=== PATIENT | female | born 1935 | race Caucasian/White ===

== ENCOUNTER 2020-08-03 08:02 | Emergency (ER) | payer MEDICARE, SELFPAY ==
--- NOTE | ~2020-08-03 | CT_ITS ---
EXAMINATION: CT brain wo con DATE: 08/03/2020 09:25 INDICATION: Dizziness. Lightheadedness. TECHNIQUE: Computed tomography (CT) of the head was performed without intravenous contrast. The mA wa s adjusted according to patient size. Iterative reconstruction technique was employed. The dose-lengt h product was 529.67 mGy-cm. COMPARISON: None FINDINGS: There are scattered areas of low attenuation in the cerebral white matter. There is no intr acranial hemorrhage, acute infarction, or abnormal intracranial mass lesion. The ventricles are teri l in size. There are likely changes of ocular lens replacement surgeries. The paranasal sinuses are c lear. The mastoid air cells are normal. IMPRESSION: 1. Moderate nonspecific cerebral white matter disease, which likely represents chronic small vessel i schemic disease. Reviewed, dictated and finalized at location B. IMPRESSION: 1. Moderate nonspecific cerebral white matter disease, which likely represents chronic small vessel ischemic disease.
[2020-08-03 08:10] VITALS: BP 189/99; PULSE 91; RESP 16; TEMP 36.5; O2SAT 96
--- NOTE | 2020-08-03 08:18 | ED.DIZZY ---
HPI - Dizziness General Chief Complaint: Dizziness Stated Complaint: High Blood pressure/Dizzy Time Seen by Provider: 08/03/20 08:18 Source: patient Mode of arrival: ambulatory Limitations: no limitations History of Present Illness HPI Narrative: This nice young lady comes in a feeling that her balance is not right. She says she has felt her balance has been off, and she has been dizzy. She denies any vertigo, as I ask that question different ways. She complains she has had a lot of anxiety regarding her 's diagnosis of cancer, and has felt she has a lot to do with seeing after him. Anxiety has been relatively severe and ongoing. This has been aggravated by her having difficulty with her 's ostomy care. Duration is ongoing for the past few weeks, not made better by measures taken at home. She feels this anxiety is caused by the 's diagnosis of cancer. No modifying factors. She denies vertigo, she denies nausea. MD elicited complaint: lightheadedness Pertinent past history: other (vertigo) Onset (ago): day(s) Timing: gradual onset Severity: moderate Description: off-balance Context: anxiety Exacerbating factors: movement/ambulation and change in body position Relieving factors: nothing and remaining still Associated symptoms: denies other symptoms Associated neuro symptoms: gait ataxia (chronic ataxia) Stroke scale total: 0 Related Data Home Medications Medication Instructions Recorded Confirmed metoprolol tartrate 25 mg PO DAILY 08/03/20 08/03/20 Allergies Allergy/AdvReac Type Severity Reaction Status Date / Time No Known Allergies Allergy Verified 08/03/20 09:08 Review of Systems Constitutional: Constitutional: Reports no additional constitutional complaints Eyes: Eyes: Reports no additional eye complaints ENT: Reports system reviewed and no additional complaints, except as documented Cardiovascular: Cardiovascular: Reports no additional cardiovascular complaints Respiratory: Respiratory: Reports no additional respiratory complaints Gastrointestinal: Gastrointestinal: Reports no additional gastrointestinal complaints Genitourinary: Genitourinary: Reports no additional female genitourinary complaints Musculoskeletal: Musculoskeletal: Reports no additional musculoskeletal complaints Integumentary/Breasts: Skin/Breast: Reports system reviewed and no additional complaints, except as docu Neurologic: Reports system reviewed and no additional complaints, except as documented Psychiatric: Psychiatric: Reports no additional psychiatric complaints Endocrine: Endocrine: Reports no additional endocrine complaints Hematologic/Lymphatic: Hematologic/Lymphatic: Reports no additional hematologic/lymphatic complaints Allergic/Immunologic: Allergic/Immunologic: Reports no additional allergic/immunologic complaints [facility] Past Medical History Medical History (Updated 08/03/20 @ 21:13 by Adriel Morales MD) Hypertension Osteoarthritis Surgical History Surgical History (Updated 08/03/20 @ 21:16 by Adriel Morales MD) History of cholecystectomy History of hip replacement Family History Family History (Updated 08/03/20 @ 21:16 by Adriel Morales MD) Other No significant family history Social History Social History (Updated 08/03/20 @ 22:30 by Adriel Morales MD) Smoking status: Never smoker Living arrangements: with family Sexual Orientation (if Verbalized by the Patient): Straight or Heterosexual Exam Const: General: no acute distress Orientation/consciousness: patient oriented x3 HENMT: Head: normal to inspection Ears: TM's normal bilaterally and external ear abnormal General nose exam: Normal external nose present Mouth: Yes Normal oral and palatal mucosa present Throat: posterior oropharynx normal Eyes: Conjunctivae: conjunctivae normal Neck: Neck: normal visual inspection Chest: Chest palpation & inspection: normal inspection of the chest Resp: Effor
--- NOTE | 2020-08-03 08:35 | ECG_ITS ---
Measurements Intervals [place] Rate: 76 P: 84 NE: 168 QRS: 85 QRSD: 88 T: 81 QT: 405 QTc: 455 Interpretive Statements SINUS RHYTHM POSSIBLE RIGHT ATRIAL ENLARGEMENT VOLTAGE CRITERIA FOR LVH BASELINE ARTIFACT- I BORDERLINE ECG Electronically Signed On 08-03-2020 8:59:29 CDT by Rupesh Goldberg D.O.
[2020-08-03 08:42] LABS: Add Urine Microscopic? YES; Appearance Urine Clear (Clear); Bilirubin Urine Negative (Negative); Blood Urine Negative (Negative); Color Urine Yellow (Yellow); Glucose Urine UA Negative (Negative); Ketones Urine Trace (Negative); Leukocyte Esterase Ur Negative LEU/UL (Negative); Nitrate Urine Negative (Negative); Protein Urine Negative (Negative); Specific Grav Ur 1.015 (1.010-1.020); Urobilinogen Urine 0.2 mg/dL (0.2-1.0); pH Urine 6.5 (5.0-8.0)
[2020-08-03 08:46] LABS: RBC Urine None seen /hpf (0-2); Squamous Epithelial Cell Urine Few /hpf (Few); WBC Urine None seen /hpf (0-3)
[2020-08-03 08:47] LABS: Bacteria Urine Trace /hpf
[2020-08-03 08:58] LABS: Basophils Absolute Auto 0.03 K/mm3 (0.00-0.10); Basophils Percent Auto 0.4 % (0.0-1.0); Eosinophils Absolute Auto 0.03 K/mm3 (0.02-0.50); Eosinophils Percent Auto 0.4 % (1.0-6.0); Hematocrit 41.9 % (35.0-42.0); Hemoglobin 13.3 g/dL (11.7-13.8); Immature Granulocyte Absolute 0.03 K/mm3 (0.00-0.00); Immature Granulocyte Percent A 0.4 % (0.0-0.0); Lymphocytes Absolute Auto 1.63 K/mm3 (1.10-4.50); Lymphocytes Percent Auto 19.9 % (18.0-42.0); Mean Corpuscular HGB Conc 31.7 g/dL (32.0-36.0); Mean Corpuscular Hemoglobin 27.8 pg (27.0-31.0); Mean Corpuscular Volume 87.7 fL (78.0-102.0); Monocytes Absolute Auto 0.44 K/mm3 (0.10-0.90); Monocytes Percent Auto 5.4 % (2.0-11.0); Neutrophils Absolute Auto 6.1 K/mm3 (1.7-7.2); Neutrophils Percent Auto 73.5 % (50.0-70.0); Platelet Count Result 462 K/mm3 (150-420); Red Blood Count 4.78 M/mm3 (4.20-5.40); Red Cell Distribution Width 14.3 % (11.6-14.4); White Blood Count 8.2 K/mm3 (4.8-10.8)
[2020-08-03 09:19] LABS: Alanine Aminotransferase 17 U/L (14-59); Albumin Level 2.9 g/dL (3.4-5.0); Alkaline Phosphatase 65 U/L (46-116); Anion Gap 8 mmol/L (8-16); Aspartate Amino Transferase 19 U/L (15-37); Bilirubin,Total 0.3 mg/dL (0.00-1.00); Blood Urea Nitrogen 12 mg/dL (7-18); Calcium 8.9 mg/dL (8.5-10.1); Carbon Dioxide 29 mmol/L (21-32); Chloride 103 mmol/L (98-108); Estimated Glomerular Filt Rate > 60; Glucose 132 mg/dL (70-99); Magnesium 1.9 mg/dL (1.8-2.4); Osmolality Calculated 291 mOsm/kg (285-295); Potassium 3.7 mmol/L (3.5-5.1); Sodium 140 mmol/L (136-145); Total Protein 7.3 g/dL (6.4-8.2)
[2020-08-03 09:20] LABS: Troponin I 11.9 ng/L (0.00-60.4)
[2020-08-03 09:42] VITALS: BP 168/96; PULSE 79; O2SAT 99
--- NOTE | 2020-08-03 09:43 | PC.NURSE ---
FELICE FROM [employer] HERE TO SPEAK WITH PATIENT AND FAMILY
[2020-08-03 10:10] VITALS: BP 162/89
== END 2020-08-03 10:10 | disposition home or self-care (01) ==
PROVIDERS: Emergency Provider Emergency Medicine; PCP Internal Medicine
DX: F41.9 Anxiety disorder, unspecified (principal); F32.9 Major depressive disorder, single episode, unspecified
CPT/HCPCS: 36415; 70450; 80053; 81001; 83735; 84484; 85025; 93005; 99283; 99284

== ENCOUNTER 2022-12-28 13:45 | Outpatient (CLI) | payer MEDICARE, SELFPAY ==
[2022-12-28 14:05] LABS: Basophils Absolute Auto 0.05 K/mm3 (0.00-0.10); Basophils Percent Auto 0.4 % (0.0-1.0); Eosinophils Absolute Auto 0.15 K/mm3 (0.02-0.50); Eosinophils Percent Auto 1.3 % (1.0-6.0); Hemoglobin 12.6 g/dL (11.7-13.8); Immature Granulocyte Absolute 0.04 K/mm3 (0.00-0.00); Immature Granulocyte Percent A 0.3 % (0.0-0.0); Lymphocytes Absolute Auto 2.45 K/mm3 (1.10-4.50); Lymphocytes Percent Auto 21.4 % (18.0-42.0); Mean Corpuscular HGB Conc 31.5 g/dL (32.0-36.0); Mean Corpuscular Hemoglobin 29.1 pg (27.0-31.0); Mean Corpuscular Volume 92.4 fL (78.0-102.0); Mean Platelet Volume 9.1 fl (9.2-11.8); Monocytes Absolute Auto 0.92 K/mm3 (0.10-0.90); Neutrophils Absolute Auto 7.8 K/mm3 (1.7-7.2); Neutrophils Percent Auto 68.6 % (50.0-70.0); Platelet Count Result 507 K/mm3 (150-420); Red Blood Count 4.33 M/mm3 (4.20-5.40); Red Cell Distribution Width 14.6 % (11.6-14.4); White Blood Count 11.5 K/mm3 (4.8-10.8)
[2022-12-28 14:44] LABS: Anion Gap 10 mmol/L (8-16); Blood Urea Nitrogen 19 mg/dL (7-18); Calcium 9.4 mg/dL (8.5-10.1); Carbon Dioxide 27 mmol/L (21-32); Chloride 105 mmol/L (98-108); Estimated Glomerular Filt Rate > 60; Glucose 115 mg/dL (70-99); Osmolality Calculated 297 mOsm/kg (285-295); Potassium 5.2 mmol/L (3.5-5.1); Sodium 142 mmol/L (136-145)
== END 2022-12-28 13:46 | disposition home or self-care (01) ==
LOC: CHSLAB 13:48
PROVIDERS: PCP Internal Medicine; Visit Provider Hospitalist
DX: I10 Essential (primary) hypertension (principal)
CPT/HCPCS: 36415; 80048; 85025

== ENCOUNTER 2024-08-12 11:36 | Outpatient (CLI) | payer MEDICARE, SELFPAY ==
--- NOTE | ~2024-08-12 | XR_ITS ---
Right Knee Technique: AP, lateral, and sunrise views were obtained. Clinical History: Pain Findings: No fracture or dislocation is seen. Severe tricompartmental osteophytosis present. There is diffuse osteopenia. Soft tissues are unremarkable. No joint effusion is seen. Impression: Severe tricompartmental osteoarthritis. Diffuse generalized osteopenia. Reviewed, dictated and finalized at location . Impression: Severe tricompartmental osteoarthritis. Diffuse generalized osteopenia.
[2024-08-12 12:02] LABS: Hematocrit 43.1 % (35.0-42.0); Hemoglobin 13.1 g/dL (11.7-13.8); Mean Corpuscular HGB Conc 30.4 g/dL (32-36); Mean Corpuscular Hemoglobin 27.4 pg (27.0-31.0); Mean Corpuscular Volume 90.2 fL (78.0-102.0); Mean Platelet Volume 9.1 fl (9.2-11.8); Platelet Count Result 575 K/mm3 (150-420); Red Blood Count 4.78 M/mm3 (4.20-5.40); Red Cell Distribution Width 14.2 % (11.6-14.4); White Blood Count 11.2 K/mm3 (4.8-10.8)
[2024-08-12 12:37] LABS: Alanine Aminotransferase 13 U/L (6-35); Alkaline Phosphatase 81 U/L (38-126); Anion Gap 7 mmol/L (4-12); Aspartate Amino Transferase 27 U/L (14-36); Bilirubin,Total 0.4 mg/dL (0.2-1.3); Blood Urea Nitrogen 14 mg/dL (7-17); CRP 1.6 mg/dL (<1.0); Calcium 9.7 mg/dL (8.4-10.2); Carbon Dioxide 27 mmol/L (22-30); Chloride 104 mmol/L (98-107); Estimated Glomerular Filt Rate > 60; Glucose 106 mg/dL (65-110); Osmolality Calculated 286 mOsm/kg (285-295); Potassium 4.6 mmol/L (3.4-5.0); Sodium 138 mmol/L (137-145); Total Protein 7.8 g/dL (6.3-8.2); Uric Acid 3.7 mg/dL (2.5-7.5)
[2024-08-12 12:50] LABS: Free T3 5.58 pg/mL (2.18-3.98)
[2024-08-12 12:53] LABS: Free T4 Free Thyroxine 1.85 ng/dL (0.78-2.19)
[2024-08-12 13:15] LABS: Erythrocyte Sedimentation Rate 10 mm/hr (0-30)
[2024-08-14 13:23] LABS: Anti Cyclic Citrullinated Pept <16 UNITS
== END 2024-08-12 11:37 | disposition home or self-care (01) ==
LOC: CHSLAB 11:39
PROVIDERS: PCP Internal Medicine; Visit Provider Internal Medicine
DX: M25.561 Pain in right knee (principal); M06.9 Rheumatoid arthritis, unspecified; F41.9 Anxiety disorder, unspecified; M17.11 Unilateral primary osteoarthritis, right knee; M85.89 Other specified disorders of bone density and structure, multiple sites
CPT/HCPCS: 36415; 73562; 80053; 84439; 84443; 84481; 84550; 85027; 85652; 86140; 86200

== ENCOUNTER 2024-08-13 09:38 | Observation (INO) | payer MEDICARE, SELFPAY ==
--- NOTE | ~2024-08-13 | CT_ITS ---
EXAMINATION: CTA brain carotid DATE: 08/14/2024 11:24 CDT INDICATION: Facial drop. Just not feeling right. TECHNIQUE: Computed tomographic angiography (CTA) of the head was performed without and with 100 mL O mnipaque-350 intravenous contrast. CTA of the neck was performed with intravenous contrast. The dose- length product was 1102.31 mGy-cm. Maximum intensity projection and volume rendered 3D-reconstruction s were created by the technologist on a separate workstation. COMPARISON: CT brain dated 08/14/2024 and 08/03/2020. FINDINGS: HEAD CTA: No significant stenosis, occlusion or aneurysm. There is atherosclerotic changes in the cav ernous segments of the carotid arteries. There is a dominant left vertebral artery. NECK CTA: There is atherosclerosis of the aorta and great vessels. The origins of the vertebral arter ies are unremarkable. There is mild atherosclerotic changes of the proximal internal carotid arteries without significant luminal narrowing or dissection. The vertebral arteries are normal in course and caliber. There are small subcentimeter hypodensities of the thyroid gland, most likely benign. Lung apices are unremarkable. There is less than 20% stenosis of the proximal right internal carotid artery relative to normal dist al artery lumen diameter (NASCET criteria). There is less than 20% stenosis of the proximal left inte rnal carotid artery relative to normal distal artery lumen diameter. IMPRESSION: 1: No significant vascular abnormality of the head or neck. No significant stenosis, occlusion, diss ection or aneurysm. Reviewed, dictated and finalized at location A. IMPRESSION: 1: No significant vascular abnormality of the head or neck. No significant allyson nosis, occlusion, dissection or aneurysm.
--- NOTE | ~2024-08-13 | CT_ITS ---
EXAMINATION: CT brain wo con DATE: 08/14/2024 10:26 INDICATION: Right facial droop. TECHNIQUE: Computed tomography (CT) of the head was performed without intravenous contrast. Sagittal and coronal reconstructions were performed. The mA was adjusted according to patient size. Iterative reconstruction technique was employed. The dose-length product was 605.33 mGy-cm. COMPARISON: head CT dated 08/03/2020 FINDINGS: No acute intracranial hemorrhage, acute infarction or abnormal extra axial fluid collection. There is moderate scattered white matter hypoattenuation consistent with chronic small vessel ischemic diseas e. Symmetric prominence of the sulci consistent with mild age-appropriate diffuse cerebral volume los s. Ventricles are normal and symmetric. No mass/mass effect. Changes of bilateral intraocular lens re placement. The orbits, paranasal sinuses and mastoid air cells are normal. Intracranial calcified cer ebral atherosclerosis is noted. IMPRESSION: 1. No acute intracranial process. 2. Age-related changes including mild diffuse volume loss and moderate scattered white matter hypoatt enuation consistent with chronic small vessel ischemic disease. Reviewed, dictated and finalized at location A. IMPRESSION: 1. No acute intracranial process. 2. Age-related changes including mild diffuse volume loss and moderate scattere d white matter hypoattenuation consistent with chronic small vessel ischemic di sease.
--- NOTE | ~2024-08-13 | US_ITS ---
EXAMINATION:US venous doppler LE BI INDICATION:Status post fall. Knee pain and swelling. TECHNIQUE: Multiple grayscale, color flow and Doppler images of the right and left lower extremity de ep venous systems were obtained and reviewed. COMPARISON:No prior studies for comparison. FINDINGS: The common femoral, superficial femoral and popliteal veins demonstrate normal respiratory variation, augmentation and compressibility. Color flow is also seen within the posterior tibial, pe roneal, greater saphenous and profunda veins. IMPRESSION: 1: No lower extremity deep venous thrombosis. Reviewed, dictated and finalized at location A.
--- NOTE | ~2024-08-13 | XR_ITS ---
XR hip RT 2V w AP pelvis 08/13/2024 11:19 Indication: Hip pain after fall Procedure: AP pelvis and 2 views right hip Comparison: No prior studies for comparison. Findings: Pelvic rings intact. There is a left bipolar hemiarthroplasty. There is moderate osteoarthr itis of the right hip. Mild osteitis pubis. No acute fracture or traumatic malalignment. There is ath erosclerosis. Impression: 1: No acute fracture. Reviewed, dictated and finalized at location A. Impression: 1: No acute fracture.
--- NOTE | ~2024-08-13 | XR_ITS ---
XR knee RT 3V 08/13/2024 11:19 Indication: Right knee pain after fall Procedure: 3 views right knee Comparison: 08/12/2024 Findings: There is severe tricompartment osteoarthritis. There is moderate joint effusion. No acute f racture or traumatic malalignment. No soft tissue abnormality. No foreign bodies. Impression: 1: No acute bone or joint abnormality. 2: Severe tricompartment osteoarthritis. Reviewed, dictated and finalized at location A. Impression: 1: No acute bone or joint abnormality. 2: Severe tricompartment osteoarthritis.
[2024-08-13 09:39] VITALS: BP 197/96; PULSE 86; RESP 16; TEMP 36.7; O2SAT 96
--- NOTE | 2024-08-13 09:51 | ED_ITS ---
HPI - Fall General Chief Complaint: Fall Stated Complaint: fall; right hip pain Time Seen by Provider: 08/13/24 09:49 Source: patient Mode of arrival: ambulatory Limitations: no limitations History of Present Illness HPI Narrative: 89-year-old female with a history of hypertension, arthritis status post left hip replacement, recent right knee pain and swelling for which she has been scheduled to have a cortisone injection had a fall yesterday evening and presents to the ED with -- right hip pain. The patient is unable to bear weight. -- Ongoing right knee pain no head injury. No loss of consciousness. No neck or back pain. No bruising complaint: fall Onset (ago): day(s) ( 1 day ago) Fall from: standing Fall witnessed: no Place fall occurred: home Loss of consciousness: none Prolonged down time: no Symptoms prior to fall: none Context: tripped/slipped Severity: severe Quality: aching Related Data Home Medications ?Medication ?Instructions ?Recorded ?Confirmed ?Last Taken ?Type metoprolol tartrate 25 mg tablet 25 mg PO DAILY 08/03/20 08/03/20 Unknown History Allergies Allergy/AdvReac Type Severity Reaction Status Date / Time No Known Allergies Allergy Verified 08/13/24 09:47 Review of Systems Review of Systems: All systems reviewed & are unremarkable except as noted in HPI and below Constitutional: Constitutional: Reports as per HPI and Reports no additional constitutional complaints Eyes: Eyes: Reports as per HPI and Reports no additional eye complaints ENT: Reports system reviewed and no additional complaints, except as documented and Reports as per HPI Cardiovascular: Cardiovascular: Reports as per HPI and Reports no additional cardiovascular complaints Respiratory: Respiratory: Reports as per HPI and Reports no additional respiratory complaints Gastrointestinal: Gastrointestinal: Reports as per HPI and Reports no additional gastrointestinal complaints Genitourinary: Genitourinary: Reports no additional female genitourinary complaints and Reports as per HPI Musculoskeletal: Musculoskeletal: Reports no additional musculoskeletal complaints and Reports as per HPI Comments: ongoing right knee pain and swelling new right hip pain chronic arthritis Integumentary/Breasts: Skin/Breast: Reports system reviewed and no additional complaints, except as docu and Reports as per HPI Neurologic: Reports system reviewed and no additional complaints, except as documented and Reports as per HPI Psychiatric: Psychiatric: Reports no additional psychiatric complaints and Reports as per HPI Endocrine: Endocrine: Reports no additional endocrine complaints and Reports as per HPI Hematologic/Lymphatic: Hematologic/Lymphatic: Reports no additional hematologic/lymphatic complaints and Reports as per HPI Allergic/Immunologic: Allergic/Immunologic: Reports no additional allergi c/immunologic complaints and Reports as per HPI [facility] Past Medical History Medical History Hypertension Osteoarthritis Surgical History Surgical History History of hip replacement History of cholecystectomy Family History Family History Other No significant family history Social History Social History Smoking status: Never smoker Living arrangements: with family Sexual Orientation (if Verbalized by the Patient): Straight or Heterosexual Exam Narrative: blood pressure 197/96 Const: General: no acute distress Orientation/consciousness: patient oriented x3 Limitations: no limitations HENMT: Head: normal to inspection Ears: external ears normal Face/Nose/Sinus: Normal external nose present and Normal nares present Face and sinus: normal facial exam Mouth: Yes Normal oral and palatal mucosa pres ent Throat: posterior oropharynx normal Eyes: Conjunctivae: conjunctivae normal Pupils: Equal, round and reactive pupils present Direct Ophthalmoscopy: no photophobia Neck: Neck: normal visual inspection, no lymphadenopathy and no meningeal signs Chest: Chest palpation & inspection: normal inspection of the chest Resp: Effort & Inspection: normal respiratory effort Auscultation: clear to auscultation bilaterally Cardio: Rate: regular rate Rhythm: regular rhythm GI: Auscultation: normal bowel sounds Other: no tenderness/ rigidity / rebound. : General: Yes no CVA tenderness Back/Spine/Pelvis: Back: no CVA tenderness Other: No spinal tenderness noted. Skin: General skin exam: normal color Rashes: no rashes Wounds: no wounds Neuro: General: patient oriented x3, moves all extremities, no meningeal signs, no focal motor deficits and CN's II-XI intact bilaterally Speech: normal speech Extrem: Other: Extensive arthritis of the joints of the hands. Right knee is swollen with decreased range of motion. Right hip is tender with decreased range of motion. Bilateral lower extremity swelling right greater than the left. Psych: Mental Status: mental status grossly normal Affect: normal affect Attitude: cooperative Course Course Emergency Course: accidental fall right hip pain right knee pain as the patient is unable to bear weight will admit her for 1 day for OT/ PT and pain control. Vital Signs Vital signs: Vital Signs Temperature 36.7 C 08/13/24 09:39 Pulse Rate 86 08/13/24 09:39 Respiratory Rate 16 08/13/24 09:39 Blood Pressure 197/96 H 08/13/24 09:39 Pulse Oximetry 96 08/13/24 09:39 Oxygen Delivery Room Air 08/13/24 09:39 Temperature 36.7 C 08/13/24 11:00 Pulse Rate 71 08/13/24 11:00 Respiratory Rate 15 08/13/24 11:00 Blood Pressure 151/80 H 08/13/24 11:00 Pulse Oximetry 96 08/13/24 11:00 Oxygen Delivery Room Air 08/13/24 11:00 MDM - Fall MDM Narrative Medical decision making narrative: accidental fall hip pain Differential Diagnosis Differential diagnosis: Likely other ( fracture of the hip) Medical Records Attestation: I reviewed the patient's medical records. Discharge Plan Discharge Clinical Impression: Accidental fall Qualifiers: Encounter type: initial encounter Qualified Code(s): W19.XXXA - Unspecified fall, initial encounter Acute hip pain Qualifiers: Laterality: right Qualified Code(s): M25.551 - Pain in right hip Patient Disposition: [facility] Condition: Stable Patient Language: Lao Prescriptions: No Action metoprolol tartrate 25 mg tablet 25 mg PO DAILY Follow-up/Referrals: John Lopez MD [Primary Care Provider] - Time of Disposition: 12:35
[2024-08-13 11:00] VITALS: BP 151/80; PULSE 71; RESP 15; TEMP 36.7; O2SAT 96
[2024-08-13 12:55] VITALS: BMI 24.0
--- NOTE | 2024-08-13 13:14 | PC.NURSE ---
Informed [employer] REPAIRER of patients room number and meds in system.
[2024-08-13 13:18] VITALS: BP 189/89; PULSE 84; RESP 18; TEMP 36.1; O2SAT 94
--- NOTE | 2024-08-13 14:01 | PC.NURSE ---
Spoke with [employer] ASST at 1347 informed information from patient care assistant of this patient needed pain control scheduled for 24hours, heat/ice alternating Q2h and Pt/OT orders.
[2024-08-13 14:38] LABS: Hematocrit 42.5 % (35.0-42.0); Hemoglobin 13.1 g/dL (11.7-13.8); Immature Platelet Fraction Pct 0.9 % (1.0-7.0); Mean Corpuscular HGB Conc 30.8 g/dL (32-36); Mean Corpuscular Hemoglobin 27.6 pg (27.0-31.0); Mean Corpuscular Volume 89.5 fL (78.0-102.0); Mean Platelet Volume 9.2 fl (9.2-11.8); Platelet Count Result 546 K/mm3 (150-420); Red Blood Count 4.75 M/mm3 (4.20-5.40); Red Cell Distribution Width 14.5 % (11.6-14.4); White Blood Count 11.4 K/mm3 (4.8-10.8)
[2024-08-13 14:53] LABS: Alanine Aminotransferase 28 U/L (6-35); Albumin Level 4.1 g/dL (3.5-5.1); Alkaline Phosphatase 69 U/L (38-126); Anion Gap 8 mmol/L (4-12); Aspartate Amino Transferase 39 U/L (14-36); Bilirubin,Total 0.5 mg/dL (0.2-1.3); Blood Urea Nitrogen 13 mg/dL (7-17); Calcium 9.1 mg/dL (8.4-10.2); Carbon Dioxide 28 mmol/L (22-30); Chloride 103 mmol/L (98-107); Estimated CRCL calculation 37 ml/min; Estimated Glomerular Filt Rate > 60; Glucose 180 mg/dL (65-110); Osmolality Calculated 293 mOsm/kg (285-295); Potassium 4.1 mmol/L (3.4-5.0); Sodium 139 mmol/L (137-145); Total Protein 8.2 g/dL (6.3-8.2)
[2024-08-13] MEDS: traMADol HCL (*CRX) 50 MG TABLET PO (14:54)
[2024-08-13 16:00] VITALS: BP 152/84; PULSE 84; RESP 18; TEMP 36.1; O2SAT 95
[2024-08-13 16:31] LABS: Add Urine Microscopic? YES; Appearance Urine Clear (Clear); Bilirubin Urine Negative (Negative); Blood Urine Negative (Negative); Color Urine Light Yellow (Yellow); Glucose Urine UA Negative (Negative); Ketones Urine Trace (Negative); Leukocyte Esterase Ur Negative LEU/UL (Negative); Nitrate Urine Negative (Negative); Protein Urine Trace (Negative); Urobilinogen Urine 0.2 mg/dL (0.2-1.0)
[2024-08-13 16:48] LABS: Bacteria Urine Rare /hpf; RBC Urine 0-2 /hpf (0-2); Squamous Epithelial Cell Urine Rare /hpf (Few); WBC Urine 0-3 /hpf (0-3)
[2024-08-13] MEDS: SENNA/DOCUSATE SODIUM TABLET 1 TAB PO (17:04)
[2024-08-13] MEDS: DICLOFENAC SODIUM 1% 100 GM GEL (*BKC) 1 APPLIC TOPICAL ×2 (17:04→21:00)
[2024-08-13] MEDS: oxyCODONE/ACETAMINOPHEN (*CRX) 5-325 MG TABLET 1 TABLET PO (22:25)
[2024-08-13] MEDS: busPIRone HCL 5 MG TABLET PO (22:26)
[2024-08-13 23:54] VITALS: PULSE 83
[2024-08-13] MEDS: METOPROLOL TARTRATE 12.5 MG TABLET PO (23:54)
[2024-08-14] VITALS (11 sets, daily range): BP systolic 158–181; BP diastolic 73–101; PULSE 85–104; RESP 15–18; TEMP 36.6; O2SAT 91–96
[2024-08-14 05:17] LABS: Basophils Absolute Auto 0.06 K/mm3 (0.00-0.10); Basophils Percent Auto 0.6 % (0.0-1.0); Eosinophils Absolute Auto 0.62 K/mm3 (0.02-0.50); Eosinophils Percent Auto 6.5 % (1.0-6.0); Hematocrit 39.3 % (35.0-42.0); Immature Granulocyte Absolute 0.03 K/mm3 (0.00-0.00); Immature Granulocyte Percent A 0.3 % (0.0-0.0); Lymphocytes Absolute Auto 2.44 K/mm3 (1.10-4.50); Lymphocytes Percent Auto 25.4 % (18.0-42.0); Mean Corpuscular HGB Conc 30.5 g/dL (32-36); Mean Corpuscular Hemoglobin 27.5 pg (27.0-31.0); Mean Corpuscular Volume 90.1 fL (78.0-102.0); Monocytes Absolute Auto 0.78 K/mm3 (0.10-0.90); Monocytes Percent Auto 8.1 % (2.0-11.0); Neutrophils Absolute Auto 5.68 K/mm3 (1.70-7.20); Neutrophils Percent Auto 59.1 % (50.0-70.0); Platelet Count Result 444 K/mm3 (150-420); Red Blood Count 4.36 M/mm3 (4.20-5.40); Red Cell Distribution Width 14.5 % (11.6-14.4); White Blood Count 9.6 K/mm3 (4.8-10.8)
[2024-08-14 05:29] LABS: Alanine Aminotransferase 20 U/L (6-35); Albumin Level 3.6 g/dL (3.5-5.1); Alkaline Phosphatase 68 U/L (38-126); Anion Gap 6 mmol/L (4-12); Aspartate Amino Transferase 33 U/L (14-36); Bilirubin,Total 0.5 mg/dL (0.2-1.3); Blood Urea Nitrogen 14 mg/dL (7-17); Calcium 8.5 mg/dL (8.4-10.2); Carbon Dioxide 28 mmol/L (22-30); Chloride 104 mmol/L (98-107); Estimated CRCL calculation 42 ml/min; Estimated Glomerular Filt Rate > 60; Glucose 114 mg/dL (65-110); Osmolality Calculated 287 mOsm/kg (285-295); Sodium 138 mmol/L (137-145); Total Protein 7.4 g/dL (6.3-8.2)
[2024-08-14 05:33] LABS: Magnesium 1.9 mg/dL (1.6-2.3)
--- NOTE | 2024-08-14 08:00 | PC.NURSE ---
During am assessment, pt found to have right sided facial droop. it is unknown if this is normal for patient. Pt was given mirror and stated that everything looked normal. She did experience some dribbling from right side of mouth when drinking and stated that was normal. Neuro check was performed. Pt within normal limits with exception of the facial drooping and inability to move right leg due to fall and RA.
[2024-08-14] MEDS: polyethylene glycoL 3350 17 GM POWD.PACK PO (09:04)
[2024-08-14] MEDS: traMADol HCL (*CRX) 50 MG TABLET PO (09:05)
[2024-08-14] MEDS: METOPROLOL TARTRATE 12.5 MG TABLET PO (09:05)
[2024-08-14] MEDS: DICLOFENAC SODIUM 1% 100 GM GEL (*BKC) 1 APPLIC TOPICAL (09:05)
[2024-08-14] MEDS: ENOXAPARIN 40 MG/0.4 ML SYRINGE SUB-Q (09:05)
[2024-08-14] MEDS: busPIRone HCL 5 MG TABLET PO (09:07)
[2024-08-14] MEDS: SENNA/DOCUSATE SODIUM TABLET 1 TAB PO (09:07)
[2024-08-14] MEDS: ONDANSETRON INJ 4 MG/2 ML VIAL IV PUSH (09:57)
--- NOTE | 2024-08-14 10:14 | ECG_ITS ---
Test Date: 2024-08-14 10:30:43 Measurements Intervals [place] Rate: 84 P: 76 AL: 175 QRS: 33 QRSD: 122 T: 81 QT: 405 QTc: 482 Interpretive Statements SINUS RHYTHM WITH OCCASIONAL SUPRAVENTRICULAR PREMATURE COMPLEXES LEFT BUNDLE BRANCH BLOCK ABNORMAL ECG No previous ECG available for comparison Electronically Signed On 08-14-2024 11:09:30 CDT by Rupesh Goldberg D.O.
--- NOTE | 2024-08-14 10:20 | PC.NURSE ---
Dr. Valadez at bedside on way to CT scan. NIHSS performed by him. Score of 2.
[2024-08-14 10:22] LABS: Glucose Point of Care 90 mg/dl (65-105)
[2024-08-14 10:31] LABS: Basophils Absolute Auto 0.05 K/mm3 (0.00-0.10); Basophils Percent Auto 0.4 % (0.0-1.0); Eosinophils Absolute Auto 0.34 K/mm3 (0.02-0.50); Eosinophils Percent Auto 2.9 % (1.0-6.0); Hematocrit 39.2 % (35.0-42.0); Immature Granulocyte Absolute 0.07 K/mm3 (0.00-0.00); Immature Granulocyte Percent A 0.6 % (0.0-0.0); Lymphocytes Absolute Auto 1.69 K/mm3 (1.10-4.50); Lymphocytes Percent Auto 14.3 % (18.0-42.0); Mean Corpuscular HGB Conc 30.6 g/dL (32-36); Mean Corpuscular Hemoglobin 27.5 pg (27.0-31.0); Mean Corpuscular Volume 89.9 fL (78.0-102.0); Mean Platelet Volume 8.9 fl (9.2-11.8); Monocytes Absolute Auto 1.17 K/mm3 (0.10-0.90); Monocytes Percent Auto 9.9 % (2.0-11.0); Neutrophils Absolute Auto 8.52 K/mm3 (1.70-7.20); Neutrophils Percent Auto 71.9 % (50.0-70.0); Platelet Count Result 442 K/mm3 (150-420); Red Blood Count 4.36 M/mm3 (4.20-5.40); Red Cell Distribution Width 14.4 % (11.6-14.4); White Blood Count 11.8 K/mm3 (4.8-10.8)
[2024-08-14 10:39] LABS: Base Excess ABG 2.3 mmol/L (0-2); Carboxyhemoglobin 0.1 % (0-1.5); HCO3 ABG 25.9 mmol/L (23-29); Methemoglobin ABG 0.4 % (0-1.5); Oxygen Content ABG 16.4 %vol (16.0-22.0); Oxygen Saturation ABG 93.2 % (95-97); Oxyhemoglobin 92.7 % (94-100); PCO2 ABG 36.8 mmHg (35-45); PO2 ABG 65.5 mmHg (75-85); Reduced Hemoglobin 6.8 % (0-1.5); pH ABG 7.47 (7.35-7.45)
[2024-08-14 10:40] LABS: Device ROOM AIR; Modified Allen's Test Pass; Site Drawn RIGHT RADIAL
--- NOTE | 2024-08-14 10:41 | PM.SD2 ---
Same Day Admit/Disch: HPI History of Present Illness Chief complaint: fall with hip pain Narrative: Jaqueline Verma is a 89 year old female Who presented to the emergency room after a fall at home with right hip pain. Patient is somewhat confused on events leading up to her arrival to ER. per patient Sunday she had fallen and called a friend who called EMS for an assist up but did not seek medical attention Sunday when she was walking with her walker from the bathroom patient states she fell again at that time she denied dizziness, chest pain, shortness a breath but did not recall certain events during those episodes she did not have loss of bowel or stool. after speaking with her daughter who requested she contact her primary care physician patient's primary requested patient go to the emergency room for evaluation. per daughter she spoke with her mother on Sunday08/10/2024 and she sounded herself on the telephone however when she spoke to her mom Sunday night she had some intermittent confusion states something just felt off. patient is past medical history osteoarthritis and hypertension. patient was evaluated in the emergency department trauma workup was negative for acute fracture but patient was immobile due to severe pain she was admitted to the medical unit for further pain management and evaluation by PT OT. upon my assessment of patient following day as we were reviewing history of events and past medical history patient reported not feeling well and reported nausea at which time I saw left facial drooping and patient stating she felt funny strength to upper and lower extremities bilateral were equal she was still able to follow commands no visual changes no slurred speech. At this time a code stroke was called and patient was taken down for a stat CT head which showed no acute intracranial process and age-related changes consistent with chronic small-vessel ischemic disease. CTA was ordered and pending plan for transfer for neurological workup. [facility] Past Medical History Medical History (Updated 08/14/24 @ 11:22 by Enriqueta Little APRN) Hypertension Osteoarthritis Surgical History Surgical History History of hip replacement History of cholecystectomy Family History Family History Other No significant family history Social History Social History Smoking status: Never smoker Second hand tobacco smoke exposure: Yes Alcohol intake: never Substance use: never Do You Feel Safe in your Home?: Yes Lack of Transportation: No Lack of Food: Never True Current Housing: I Have Housing Concerned About Future Housing: No Difficulty Paying Gas/Electric Bills: No Difficulty Paying for Meds: No Currently Unemployed: No Education: High School Diploma/GED Difficulty w/ Childcare or Family Care: No Living arrangements: with family Sexual Orientation (if Verbalized by the Patient): Straight or Heterosexual Spiritual care concerns: No Same Day Admit/Disch: Med Pre-admit Medications Home Medications ?Medication ?Instructions ?Recorded ?Confirmed ?Type metoprolol tartrate 25 mg tablet 25 mg PO DAILY 08/03/20 08/13/24 History buspirone 5 mg tablet 5 mg PO BID PRN anxiety 08/13/24 08/13/24 History Review of Systems Review of Systems All systems reviewed & are unremarkable except as noted in HPI and below Exam Const: Other: Pleasant female, noted facial dropping alert and oriented following all commands but nauseous HENMT: Mouth: Yes moist mucous membranes Eyes: Alignment and Position: alignment normal Eyelids: eyelids normal Pupils: Equal, round and reactive pupils present Other: epiphora noted to left eye Neck: Neck: supple and no JVD Chest: Other: Barrel chest Resp: Effort & Inspection: normal respiratory effort Auscultation: clear to auscultation bilaterally Cardio: Rate: regular rate Rhythm: regular rhythm GI: GI Palp: Yes Soft to palpation Auscultation: normal bowel sounds Skin: General skin exam: normal color Wounds: no wounds Neuro: General: oriented to person, oriented to place, oriented to time, moves all extremities, Normal light touch and pain sensation and no focal motor deficits Cranial nerves: Yes CN's II-XII intact bilaterally Cognition (Neuro): normal cognition Speech: normal speech Gait exam (Neuro): Unable to assess gait Motor exam (neuro): 5/5 motor strength present throughout Sensory Exam: normal sensation Pupils: Normal pupillary reactivity/response: bilateral Other: Facial asymmetry/ left facial droop Extrem: Other: severe arthritic hands bilateral Psych: Mental Status: mental status grossly normal Affect: normal affect DS: Data Data Completed and Pending Labs on day of discharge: Labs from last 24 hours 08/14/24 08/14/2408/14/25 10:22 10:18 10:14 WBC 11.8 H RBC 4.36 Hgb 12.0 Hct 39.2 MCV 89.9 MCH 27.5 MCHC 30.6 L RDW 14.4 Plt Count 442 H MPV 8.9 L Immature Gran % (Auto) 0.6 H Neut % (Auto) 71.9 H Lymph % (Auto) 14.3 L Garden % (Auto) 9.9 Eos % (Auto) 2.9 Baso % (Auto) 0.4 Lymph # (Auto) 1.69 Garden # (Auto) 1.17 H Eos # (Auto) 0.34 Baso # (Auto) 0.05 Abs Immat Gran (auto) 0.07 H Absolute Neuts (auto) 8.52 H Absolute Nucleated RBC 0.00 Nucleated RBC % 0.0 % Immature Plt Fraction PT Pending INR Pending APTT Pending Puncture Site Right radial ABG pH 7.47 H ABG pCO2 36.8 ABG pO2 65.5 L ABG PO2/FiO2 Ratio Not Reportable ABG HCO3 25.9 ABG O2 Saturation 93.2 L ABG O2 Content 16.4 ABG Base Excess 2.3 H A-a Gradient Not Reportable Oxyhemoglobin 92.7 L Carboxyhemoglobin 0.1 Methemoglobin 0.4 Reduced Hemoglobin 6.8 H Total Hemoglobin Pending O2 Delivery Device Room air O2 Liters/Min 0.0 Sodium Pending Potassium Pending Chloride Pending Carbon Dioxide Pending Anion Gap Pending BUN Pending Creatinine Pending Estim Creat Clear Calc Pending Estimated GFR Pending Glucose Pending POC Capillary Glucose 90 Calculated Osmolality Pending Lactic Acid Pending Calcium Pending Magnesium Total Bilirubin Pending AST Pending ALT Pending Alkaline Phosphatase Pending Ammonia Pending Troponin I Pending Total Protein Pending Albumin Pending Triglycerides Pending Cholesterol Pending LDL Cholesterol, Calc Pending HDL Direct Pending Urine Color Urine Appearance Urine pH Ur Specific [place] Urine Protein Urine Glucose (UA) Urine Ketones Ur Blood (Man) Urine Nitrate Urine Bilirubin Urine Urobilinogen Leukocyte Esterase Rfl Urine RBC Urine WBC Ur Squamous Epith Cells Urine Bacteria 08/14/24 08/13/24 08/13/24 05:12 16:14 14:22 WBC 9.6 11.4 H RBC 4.36 4.75 Hgb 12.0 13.1 Hct 39.3 42.5 H MCV 90.1 89.5 MCH 27.5 27.6 MCHC 30.5 L 30.8 L RDW 14.5 H 14.5 H Plt Count 444 H 546 H MPV 9.0 L 9.2 Immature Gran % (Auto) 0.3 H Neut % (Auto) 59.1 Lymph % (Auto) 25.4 Garden % (Auto) 8.1 Eos % (Auto) 6.5 H Baso % (Auto) 0.6 Lymph # (Auto) 2.44 Garden # (Auto) 0.78 Eos # (Auto) 0.62 H Baso # (Auto) 0.06 Abs Immat Gran (auto) 0.03 H Absolute Neuts (auto) 5.68 Absolute Nucleated RBC 0.00 Nucleated RBC % 0.0 % Immature Plt Fraction 0.9 L PT INR APTT Puncture Site ABG pH ABG pCO2 ABG pO2 ABG PO2/FiO2 Ratio ABG HCO3 ABG O2 Saturation ABG O2 Content ABG Base Excess A-a Gradient Oxyhemoglobin Carboxyhemoglobin Methemoglobin Reduced Hemoglobin Total Hemoglobin O2 Delivery Device O2 Liters/Min Sodium 138 139 Potassium 4.0 4.1 Chloride 104 103 Carbon Dioxide 28 28 Anion Gap 6 8 BUN 14 13 Creatinine 0.65 L 0.75 Estim Creat Clear Calc 42 37 Estimated GFR > 60 > 60 Glucose 114 H 180 H POC Capillary Glucose Calculated Osmolality 287 293 Lactic Acid Calcium 8.5 9.1 Magnesium 1.9 Total Bilirubin 0.5 0.5 AST 33 39 H ALT 20 28 Alkaline Phosphatase 68 69 Ammonia Troponin I Total Protein 7.4 8.2 Albumin 3.6 4.1 Triglycerides Cholesterol LDL Cholesterol, Calc HDL Direct Urine Color Light yellow Urine Appearance Clear Urine pH 7.0 Ur Specific [place] 1.020 Urine Protein Trace H Urine Glucose (UA) Negative Urine Ketones Trace H Ur Blood (Man) Negative Urine Nitrate Negative Urine Bilirubin Negative Urine Urobilinogen 0.2 Leukocyte Esterase Rfl Negative Urine RBC 0-2 Urine WBC 0-3 Ur Squamous Epith Cells Rare Urine Bacteria Rare Imaging Radiologist's impression: EXAMINATION: CT brain wo con DATE: 08/14/2024 10:26 INDICATION: Right facial droop. TECHNIQUE: Computed tomography (CT) of the head was performed without intravenous contrast. Sagittal and coronal reconstructions were performed. The mA was adjusted according to patient size. Iterative reconstruction technique was employed. The dose-length product was 605.33 mGy-cm. COMPARISON: head CT dated 08/03/2020 FINDINGS: No acute intracranial hemorrhage, acute infarction or abnormal extra axial fluid collection. There is moderate scattered white matter hypoattenuation consistent with chronic small vessel ischemic disease. Symmetric prominence of the sulci consistent with mild age-appropriate diffuse cerebral volume loss. Ventricles are normal and symmetric. No mass/mass effect. Changes of bilateral intraocular lens replacement. The orbits, paranasal sinuses and mastoid air cells are normal. Intracranial calcified cerebral atherosclerosis is noted. IMPRESSION: 1. No acute intracranial process. 2. Age-related changes including mild diffuse volume loss and moderate scattered white matter hypoattenuation consistent with chronic small vessel ischemic disease. DS: Summary Hospital Course Reason for hospitalization: Fall/right hip pain/unsteady gait unable to ambulate/Stroke like symptoms Hospital Course: Admission: Jaqueline Verma is a 89 year old female Who presented to the emergency room after a fall at home with right hip pain. Patient is somewhat confused on events leading up to her arrival to ER. per patient Sunday morning she had fallen and called a friend who called EMS for an assist up but did not seek medical attention Sunday when she was walking with her walker from the bathroom patient states she fell again at that time she denied dizziness, chest pain, shortness a breath but did not recall certain events during those episodes she did not have loss of bowel or stool. after speaking with her daughter who requested she contact her primary care physician patient's primary requested patient go to the emergency room for evaluation. per daughter she spoke with her mother on Sunday08/10/2024 and she sounded herself on the telephone however when she spoke to her mom Sunday night she had some intermittent confusion states something just felt off. patient is past medical history osteoarthritis and hypertension. patient was evaluated in the emergency department trauma workup was negative for acute fracture but patient was immobile due to severe pain she was admitted to the medical unit for further pain management and evaluation by PT OT. upon my assessment of patient following day as we were reviewing history of events and past medical history patient reported not feeling well and reported nausea at which time I saw left facial drooping and patient stating she felt funny strength to upper and lower extremities bilateral were equal she was still able to follow commands no visual changes no slurred speech. At this time a code stroke was called and patient was taken down for a stat CT head which showed no acute intracranial process and age-related changes consistent with chronic small-vessel ischemic disease. CTA was ordered and pending plan for transfer for neurological workup. Course: CTA was negative for any occlusions, patient with continued left facial drop CVA vs jimenez's palsey no previous history of either. Reported to patient on diagnostic findings and the need for further Evaluation by neurologist including an MRI patient was adamant she did not want any aggressive interventions but was willing to transfer to [facility] for neurological evaluation. Spoke with Dr. Og at [facility] who accepted patient for transfer. Patient BP still hypotensive will allow for permissive BP first 24 hours pending MRI brain at [place] [place] systolic around 160 and lower slowly. Patient transferred to [facility] VIA EMS. Patient Daughter Darcy who is POA updated regarding findings and transfer. Status at Discharge Functional status at discharge: uses cane/walker Overall status at discharge: other Time Spent with Patient Time attestation: Total time spent providing and/or coordinating discharge services: Time spent: Greater than 30 minutes DS: Admitting Diagnosis Discharge Date 08/14/2024 Admitting Diagnosis Fall/right hip pain/unsteady gait unable to ambulate/Stroke like symptoms DS: Discharge Diagnosis Discharge Diagnosis (1) Accidental fall: Qualifiers: Encounter type: initial encounter Qualified Code(s): W19.XXXA - Unspecified fall, initial encounter Code(s): W19.XXXA - Unspecified fall, initial encounter Status: Acute (2) Acute hip pain: Qualifiers: Laterality: right Qualified Code(s): M25.551 - Pain in right hip Code(s): M25.559 - Pain in unspecified hip Status: Acute (3) Hypertension: Code(s): I10 - Essential (primary) hypertension Status: Acute (4) Facial droop: Code(s): R29.810 - Facial weakness Status: Acute Discharge Plan Discharge Consulting providers: Enriqueta Little Discharging Clinician: Enriqueta Little Patient Disposition: Other Activity: as tolerated Diet: heart healthy Discharge Instructions: Transfer to [facility] Patient Instructions: Antibiotic Form Patient Language: Citizen Of [place] Stand Alone Forms: General Discharge Information Discharge Medications: Continued buspirone 5 mg tablet 5 mg PO BID PRN (Reason: anxiety) metoprolol tartrate 25 mg tablet 25 mg PO DAILY Patient Comments: patient takes 12.5 mg in the AM and 12.5 in the PM Date of admission: 08/13/24 12:40 Primary Care Provider: John Lopez Admitting Provider: Luis E Caro Attending physician on admission: Luis E Caro Condition: Stable Quality VTE Prophylaxis VTE prophylaxis: pharmacologic ordered -Patient's previous records reviewed on admission -ER notes reviewed in detail on admission -discussed all findings and current treatment plan with patient/Family/POA -Consultations reviewed for recommendations -Patient's disposition for safe discharge discussed with director of casework Dictation performed by [employer] direct speech recognition software, therefore laboratory phlebotomist variants and typographical errors may occur. Hospitalist MIPS Advance Care Plan I have confirmed that the patient's Advanced Care Plan is present, code status is documented, or surrogate decision maker is listed in patient medical record.: Yes Medication Reconciliation I have utilized all available resources to obtain, update and review the patients current medications (includes all prescriptions, OTC, herbals, cannabis, and nutritional supplements).: Yes The patient is not eligible for med reconciliation; the patient is in a emergent medical situation where delaying treatment would jeopardize the patients health.: No Heart Failure (Exclusion) Patient has history of Heart Transplant or Left Ventricular Assistive Device?: No IF YES, STOP HERE Heart Failure (Qualifier) Patient has current or prior documentation of LVEF less than or equal to 40%, or mod/servere depressed LVSF?: No IF NO, STOP HERE
[2024-08-14 10:42] LABS: Lactic Acid Reflex 1.3 mmol/L (0.4-2.0)
[2024-08-14 10:43] LABS: Ammonia < 9 umol/L (9-30)
--- NOTE | 2024-08-14 10:45 | PC.NURSE ---
Bedside swallow screening completed. Pt swallowing without difficulty.
[2024-08-14 10:46] LABS: Partial Thromboplastin Time 32.5 Sec (23.9-30.70); Prothrombin Time 10.7 Seconds (9.50-12.1)
[2024-08-14 10:51] LABS: Cholesterol 162 mg/dL (0-200); HDL Direct 69 mg/dL; LDL Cholesterol Calculated 66 mg/dL (<130); Triglycerides 133 mg/dL (<150)
[2024-08-14 11:19] LABS: Alanine Aminotransferase 18 U/L (6-35); Albumin Level 3.5 g/dL (3.5-5.1); Alkaline Phosphatase 67 U/L (38-126); Anion Gap 5 mmol/L (4-12); Aspartate Amino Transferase 34 U/L (14-36); Bilirubin,Total 0.4 mg/dL (0.2-1.3); Blood Urea Nitrogen 14 mg/dL (7-17); Calcium 8.5 mg/dL (8.4-10.2); Carbon Dioxide 28 mmol/L (22-30); Chloride 103 mmol/L (98-107); Estimated CRCL calculation 43 ml/min; Estimated Glomerular Filt Rate > 60; Glucose 84 mg/dL (65-110); Osmolality Calculated 281 mOsm/kg (285-295); Potassium 4.3 mmol/L (3.4-5.0); Sodium 136 mmol/L (137-145); Total Protein 7.2 g/dL (6.3-8.2)
[2024-08-14 11:31] LABS: Troponin I 0.014 ng/mL (0.000-0.034)
[2024-08-14 11:52] LABS: Amphetamine Screen Urine Negative (Negative); Barbiturate Screen Urine Negative (Negative); Benzodiazepines Screen Urine Negative (Negative); Cannabinoid Screen Urine Negative (Negative); Cocaine Screen Urine Negative (Negative); Methadone Screen Urine Negative (Negative); Opiate Screen Urine Negative (Negative); Phencyclidine Screen Urine Negative (Negative)
--- NOTE | 2024-08-14 15:50 | PC.NURSE ---
Called report to [facility]. Report given to Maria G. Pt going to room 346.
[2024-08-14] MEDS: oxyCODONE/ACETAMINOPHEN (*CRX) 5-325 MG TABLET 1 TABLET PO (16:19)
--- NOTE | 2024-08-14 16:20 | PC.NURSE ---
Report given to Jenna with [facility]. All questions answered. [facility] Pain medicine was administered for pain 10/19 at request of EMS.
== END 2024-08-14 16:26 | disposition short-term general hospital (02) ==
LOC: CHSED 12:35 → CHS2ND 12:47
PROVIDERS: Nurse Practitioner Family; Admitting Provider Internal Medicine; Emergency Provider Internal Medicine Critical Care Medicine; PCP Internal Medicine; Visit Provider Internal Medicine
DX: M25.551 Pain in right hip (principal); M25.561 Pain in right knee; W01.0XXA Fall on same level from slipping, tripping and stumbling without subsequent striking against object, initial encounter; R26.81 Unsteadiness on feet; R41.0 Disorientation, unspecified; R29.810 Facial weakness; G81.91 Hemiplegia, unspecified affecting right dominant side; M79.89 Other specified soft tissue disorders; M25.462 Effusion, left knee; M25.461 Effusion, right knee; I10 Essential (primary) hypertension; M19.90 Unspecified osteoarthritis, unspecified site; Z96.642 Presence of left artificial hip joint; Z79.899 Other long term (current) drug therapy; Z90.49 Acquired absence of other specified parts of digestive tract
CPT/HCPCS: 36415; 36600; 70450; 70496; 70498; 73502; 73562; 80053; 80061; 80307; 81001; 82140; 82375; 82805; 82948; 83050; 83605; 83735; 84484; 85018; 85025; 85027; 85055; 85610; 85730; 86850; 86900; 86901; 93005; 93970; 97161; 97165; 99285; A9270; G0378; J1650; J2405; Q9967

== ENCOUNTER 2024-08-14 17:00 | Inpatient (IN) | payer MEDICARE, SELFPAY ==
--- NOTE | ~2024-08-14 | MR_ITS ---
EXAMINATION: MR brain/brain stem wo con DATE: INDICATION: Stroke with right facial droop TECHNIQUE: Magnetic resonance imaging (MRI) of the brain and brainstem was performed without intraven ous contrast. Sequences included sagittal and axial T1-weighted SE, axial diffusion-weighted FS SE, a xial 3D SWAN, axial T2-weighted FLAIR, and axial T2-weighted FSE. Apparent diffusion coefficient (ADC ) maps were created. COMPARISON: None. FINDINGS: There are no areas of restricted diffusion to suggest acute infarction. No intracranial hemorrhage or abnormal intracranial mass lesion. There are scattered areas of nonspecific increased T2-weighted si gnal intensity in the cerebral white matter, predominantly involving the deep and periventricular whi te matter. There are no intraparenchymal signal abnormalities seen on the other pulse sequences. Symm etric prominence of the sulci consistent with mild age-appropriate diffuse cerebral volume loss. The ventricles are symmetric and normal in size. There are no abnormal extra-axial fluid collections. Oli w voids are seen in the cerebral arteries on the T2-weighted sequences consistent with their expected patency. Changes of bilateral intraocular lens replacement. Visualized orbits and soft tissues are unremarkable. IMPRESSION: 1. No acute intracranial process. 2. Age-related changes including mild diffuse volume loss and moderate periventricular predominant no nspecific white matter T2 hyperintensity consistent with chronic small vessel ischemic disease. Reviewed, dictated and finalized at location A. IMPRESSION: 1. No acute intracranial process. 2. Age-related changes including mild diffuse volume loss and moderate perivent ricular predominant nonspecific white matter T2 hyperintensity consistent with chronic small vessel ischemic disease.
[2024-08-14 17:39] VITALS: BMI 24.0
[2024-08-14 17:43] VITALS: BMI 24.0
[2024-08-14 20:48] VITALS: PULSE 86
[2024-08-14] MEDS: METOPROLOL TARTRATE 12.5 MG TABLET PO (20:48)
[2024-08-14] MEDS: ASPIRIN 81 MG ENTERIC TABLET PO (20:52)
--- NOTE | 2024-08-14 20:53 | PC.NURSE ---
Patient shows signs of difficulty when drinking through larger straw. Smaller straw proved easier to drink through.
[2024-08-14 21:39] VITALS: BP 122/64; PULSE 96; RESP 16; TEMP 36.5; O2SAT 100
--- NOTE | 2024-08-15 | ECHO_ITS ---
Patient Info Name: Jaqueline Verma Age: 89 years : 1935 Gender: Female Ht: 63 in Wt: 135 lbs BSA: 1.66 m2 HR: 96 bpm BP: 136 / 67 mmHg Heart Rhythm: Sinus Rhythm Technical Quality: Good Exam Date: 08/15/2024 1:19 PM Patient Status: I Admit Date: 08/14/2024 Exam Type: CA echo doppler w bubble study Complete two-dimensional, color flow and Doppler transthoracic echocardiogram is performed with agitated saline. Staff Referring Physician: Nelly Quan Safety Net Maker: Ya Cabrera Attending Provider: Taz Og Contrast/Agitated Saline Contrast/Ag. Saline: Agitated Saline Amount: 20.00 ml Existing IV Access: Yes IV Access Condition: patent with no signs of infiltration Summary 1. Left ventricular chamber dimension is normal. 2. Left ventricular systolic function is normal, estimated at 60-65. 3. There is mild concentric increased left ventricular wall thickness. 4. The left ventricular diastolic function is grade I diastolic dysfunction. 5. E/e' 8 is minimally elevated. 6. Right atrial chamber dimension is moderately enlarged. 7. There is trace mitral valve regurgitation. 8. There is mild tricuspid valve regurgitation. 9. Mild pulmonary hypertension, estimated pulmonary arterial systolic pressure is 43 mmHg. Left Ventricle E/e' 8 is minimally elevated. Left ventricular chamber dimension is normal. Left ventricular systolic function is normal, estimated at 60-65. There is mild concentric increased left ventricular wall thickness. The left ventricular diastolic function is grade I diastolic dysfunction. Right Ventricle Right ventricular chamber dimension is normal. Right ventricular systolic function is normal and with normal TAPSE 1.8 cm. Left Atria Left atrial chamber dimension is normal. Right Atria Right atrial chamber dimension is moderately enlarged. Atrial Septum Intact interatrial septum visualized by 2D and agitated saline imaging. Agitated saline injection with and without valsalva maneuver opacified right side cardiac chambers without shunt to left side cardiac chambers. Aortic Valve The aortic valve is trileaflet. There is no aortic valve stenosis. There is no aortic valve regurgitation. Pulmonic Valve There is no pulmonic regurgitation. Mitral Valve There is no mitral valve stenosis. There is trace mitral valve regurgitation. Tricuspid Valve There is mild tricuspid valve regurgitation. Mild pulmonary hypertension, estimated pulmonary arterial systolic pressure is 43 mmHg. Pericardium/Pleural There is no pericardial effusion. Inferior Vena Cava Normal inferior vena cava with >50% collapse upon inspiration consistent with normal right atrial pressure, 5 mmHg. Aorta The aortic root size at the sinus of Valsalva is normal. Left Ventricular Outflow Tract Name Value Normal LVOT 2D LVOT Diameter 2.0 cm LVOT Doppler LVOT Peak Velocity 142 cm/s LVOT Peak Gradient 8 mmHg LVOT Mean Gradient 4 mmHg LVOT VTI 23 cm LVOT VTI/AV VTI Ratio 0.9 LVOT Stroke Volume 68 ml LVOT CO 5.1 l/min LVOT CI 3.1 l/min/m2 Pulmonic Valve Name Value Normal RVOT Doppler RVOT Peak Velocity 71 cm/s RVOT Peak Gradient 2 mmHg PV Doppler PV Peak Velocity 98 cm/s PV Peak Gradient 4 mmHg Mitral Valve Name Value Normal MV Diastolic Function MV E Peak Velocity 55 cm/s MV A Peak Velocity 86 cm/s MV E/A 0.6 MV Decel Time (PW) 185 ms MV Annular TDI MV E/e' (Septal) 9.6 MV E/e' (Lateral) 7.1 MV E/e' (Average) 8.3 Tricuspid Valve Name Value Normal TV Regurgitation Doppler TR Peak Velocity 308 cm/s TR Peak Gradient 38 mmHg Estimated PAP/RSVP RA Pressure 5 mmHg <=5 PA Systolic Pressure 43 mmHg <36 RV Systolic Pressure 43 mmHg <36 TV Annular TDI TV Lateral Jaqueline s' Velocity 13.0 cm/s >=9.5 Aorta Name Value Normal Ascending Aorta Ao Root Diameter (MM) 3.1 cm Ao Root Diam Index (MM) 1.8 cm/m2 Aortic Valve Name Value Normal AV Doppler AV Peak Velocity 151 cm/s AV Peak Gradient 9 mmHg AV Mean Gradient 5 mmHg AV VTI 25 cm AV Area (Cont Eq VTI) 2.7 cm2 >=3.0 AV Area (Cont Eq Koko) 2.9 cm2 AV DI (Koko) 0.94 AV Regurgitation 2D LVOT Area 3.0 cm2 Ventricles Name Value Normal LV Dimensions 2D/MM IVS Diastolic Thickness (2D) 1.2 cm 0.6-1.0 LVID Diastole (2D) 3.5 cm 3.8-5.2 LVIW Diastolic Thickness (2D) 1.0 cm 0.6-0.9 LVID Systole (2D) 2.4 cm 2.2-3.5 LVOT Diameter 2.0 cm LV Mass (2D Cubed) 116.55 g 67.00-162.00 LV Mass Index (2D Cubed) 70 g/m2 43-95 Relative Wall Thickness (2D) 0.59 <=0.42 LV Fractional Shortening/Ejection Fraction 2D/MM LV Fractional Shortening (2D) 32 % 27-45 LV EF (2D Teichholz) 61 % LV Diastolic Volume (4C MOD) 50 ml LV EF (4C MOD) 64 % LV Diastolic Volume (2C MOD) 40 ml LV EF (2C MOD) 60 % LV Diastolic Volume (BP MOD) 46 ml 46-106 LV Diastolic Volume Index (BP MOD) 28 ml/m2 29-61 LV Systolic Volume (BP MOD) 18 ml 14-42 LV Systolic Volume Index (BP MOD) 11 ml/m2 8-24 LV EF (BP MOD) 61 % 54-74 LV Diastolic Length (4C) 7.6 cm LV Systolic Length (4C) 6.4 cm LV Stroke Volume (4C MOD) 32 ml Atria Name Value Normal LA Dimensions LA Dimension (MM) 3.2 cm 2.7-3.8 LA Volume (4C A-L) 39 ml LA Volume (BP A-L) 37 ml RA Dimensions RA Area (4C) 21.6 cm2 <=18.0 Report Signatures
[2024-08-15] MEDS: busPIRone HCL 5 MG TABLET PO (05:10)
[2024-08-15] MEDS: ACETAMINOPHEN 325 MG TABLET 650 MG PO (05:10)
[2024-08-15 06:00] VITALS: BP 136/67; PULSE 86; RESP 16; TEMP 36.6; O2SAT 91
[2024-08-15 06:15] LABS: Add Urine Microscopic? YES; Appearance Urine Cloudy (Clear); Bacteria Urine None Seen /hpf; Bilirubin Urine Negative (Negative); Blood Urine 3+ (Negative); Color Urine Yellow (Yellow); Glucose Urine UA Negative (Negative); Hyaline Casts Urine Present /lpf; Ketones Urine 1+ mg/dL (Negative); Leukocyte Esterase Ur Negative LEU/UL (Negative); Need Manual Microscopic Reviewed; Nitrate Urine Negative (Negative); Protein Urine 1+ mg/dL (Negative); RBC Urine >100 /hpf (0-2); Squamous Epithelial Cell Urine None Seen /hpf (Few); Urobilinogen Urine 0.2 mg/dL (<2.0); WBC Urine 0-5 /hpf (0-3); pH Urine 5.5 (5.0-9.0)
[2024-08-15 06:26] LABS: Basophils Absolute Auto 0.1 K/mm3 (0.0-0.1); Basophils Percent Auto 0.7 % (0.2-1.2); Eosinophils Absolute Auto 0.6 K/mm3 (0-0.3); Hematocrit 37.9 % (37.0-47.0); Hemoglobin 11.6 g/dL (12.0-15.0); Immature Granulocyte Absolute 0.03 K/mm3 (0.00-0.031); Immature Granulocyte Percent A 0.3 % (0-0.5); Lymphocytes Absolute Auto 1.99 K/mm3 (0.9-3.2); Lymphocytes Percent Auto 21.7 % (18.3-44.2); Mean Corpuscular HGB Conc 30.6 g/dl (32-36); Mean Corpuscular Hemoglobin 28.2 pg (26-34); Mean Platelet Volume 9.5 fl (7.4-10.4); Monocytes Absolute Auto 0.7 K/mm3 (0.1-0.6); Monocytes Percent Auto 7.4 % (2.6-8.5); Neutrophils Absolute Auto 5.8 K/mm3 (1.3-6.7); Neutrophils Percent Auto 63.9 % (45.5-73.1); Platelet Count Result 436 k/mm3 (150-375); Red Blood Count 4.12 M/mm3 (4.2-5.4); Red Cell Distribution Width 14.5 % (11.5-14.5); White Blood Count 9.2 K/mm3 (4.5-10.0)
[2024-08-15 06:34] LABS: Anion Gap 8 mmol/L (4-12); Blood Urea Nitrogen 13 mg/dL (7-17); Calcium 8.9 mg/dL (8.4-10.2); Carbon Dioxide 28 mmol/L (22-30); Chloride 99 mmol/L (98-107); Estimated CRCL calculation 37 ml/min; Estimated Glomerular Filt Rate > 60; Glucose 111 mg/dL (65-110); Potassium 4.2 mmol/L (3.4-5.0); Sodium 135 mmol/L (137-145)
[2024-08-15] MEDS: oxyCODONE HCL (*CRX) 2.5 MG TAB IR PO ×2 (09:12→17:04)
[2024-08-15] MEDS: ENOXAPARIN 40 MG/0.4 ML SYRINGE SUB-Q (09:12)
[2024-08-15] MEDS: LIDOCAINE 5% PATCH 1 PATCH TRANSDERM (09:12)
[2024-08-15 09:13] VITALS: PULSE 96
[2024-08-15] MEDS: METOPROLOL TARTRATE 12.5 MG TABLET PO ×2 (09:13→21:30)
--- NOTE | 2024-08-15 11:54 | P.HP_ITS ---
H&P: HPI History of Present Illness Date/Time: 08/15/24 11:54 Chief Complaint: Fall/right hip pain/left facial droop Narrative: Jaqueline Verma is a 89 year old female who had presented to [place] emergency room after a fall at home with right hip pain. Patient is somewhat confused on events leading up to her arrival to ER. per patient Sunday she had fallen and called a friend who called EMS for an assist up but did not seek medical attention Sunday when she was walking with her walker from the bathroom patient states she fell again at that time she denied dizziness, chest pain, shortness a breath but did not recall certain events during those episodes she did not have loss of bowel or stool. after speaking with her daughter who requested she contact her primary care physician patient's primary requested patient go to the emergency room for evaluation. per daughter she spoke with her mother on Sunday08/10/2024 and she sounded herself on the telephone however when she spoke to her mom Sunday night she had some intermittent confusion states something just felt off. patient is past medical history osteoarthritis and hypertension. patient was evaluated in the emergency depa rtment trauma workup was negative for acute fracture but patient was immobile due to severe pain she was admitted to the medical unit for further pain management and evaluation by PT OT. upon my assessment of patient following day at [place] as we were reviewing history of events and past medical history patient reported not feeling well and reported nausea at which time I saw left facial drooping and patient stating she felt funny strength to upper and lower extremities bilateral were equal she was still able to follow commands no visual changes no slurred speech. At that time a code stroke was called and patient was taken down for a stat CT head which showed no acute intracranial process and age-related changes consistent with chronic small-vessel ischemic disease. CTA was negative for any occlusions, patient with continued left facial drop CVA vs corbin's palsey no previous history of either. Patient was then transferred to [facility] for further evaluation with MRI, ECHO and neurology consult. Review of Systems Review of Systems: All systems reviewed & are unremarkable except as noted in HPI and below PMFSH Past Medical History Medical History Hypertension Osteoarthritis Surgical History Surgical History History of hip replacement History of cholecystectomy Family History Family History Other No significant family history Social History Social History Smoking status: Never smoker Second hand tobacco smoke exposure: Yes Alcohol intake: never Substance use: never Do You Feel Safe in your Home?: Yes Lack of Transportation: No Lack of Food: Never True Current Housing: I Have Housing Concerned About Future Housing: No Difficulty Paying Gas/Electric Bills: No Difficulty Paying for Meds: No Currently Unemployed: No Education: High School Diploma/GED Difficulty w/ Childcare or Family Care: No Living arrangements: with family Sexual Orientation (if Verbalized by the Patient): Straight or Heterosexual Spiritual care concerns: No Meds Home Medications and Allergies Home Medications ?Medication ?Instructions ?Recorded ?Confirmed ?Type metoprolol tartrate 25 mg tablet 25 mg PO DAILY 08/03/20 08/14/24 History buspirone 5 mg tablet 5 mg PO BID PRN anxiety 08/13/24 08/14/24 History acetaminophen 500 mg capsule 1,000 mg PO BID PRN pain 08/14/24 08/14/24 History aspirin 81 mg tablet,delayed 81 mg PO HS 08/14/24 08/14/24 History release calcium 600 mg-D3 20 mcg-magnesium 1 tablet PO .am 08/14/24 08/14/24 History 50 jt-Zk-dtvemp-vonnie-boron tablet Allergies Allergy/AdvReac Type Severity Reaction Status Date / Time No Known Allergies Allergy Verified 08/14/24 17:48 Vital Signs Vital Signs - 24 hr 08/14/24 18:25 08/14/24 20:08 08/14/24 20:48 Temperature Pulse Rate 86 Respiratory Rate Blood Pressure Pulse Oximetry Oxygen Delivery Room Air Room Air 08/14/24 21:39 08/15/24 06:00 08/15/24 08:00 Temperature 97.7 F 97.8 F Pulse Rate 96 86 Respiratory Rate 16 16 Blood Pressure 122/64 136/67 Pulse Oximetry 100 91 Oxygen Delivery Room Air 08/15/24 09:13 Temperature Pulse Rate 96 Respiratory Rate Blood Pressure Pulse Oximetry Oxygen Delivery Exam Const: General: comfortable H&P: Results Labs Labs: Short CBC 08/15/24 Range/Units 05:42 WBC 9.2 (4.5-10.0) K/mm3 Hgb 11.6 L (12.0-15.0) g/dL Hct 37.9 (37.0-47.0) % Plt Count 436 H (150-375) k/mm3 BMP 08/15/24 05:42 Sodium 135 L Potassium 4.2 Chloride 99 Carbon Dioxide 28 BUN 13 Creatinine 0.75 Glucose 111 H Calcium 8.9 Urine 08/14/24 Range/Units 23:27 Urine Color Yellow (Yellow) Urine Appearance Cloudy H (Clear) Urine pH 5.5 (5.0-9.0) Ur Specific [place] 1.040 H (1.001-1.035) Urine Protein 1+ H (Negative) mg/dL Urine Glucose (UA) Negative (Negative) mg/dL Imaging MRI - head: Radiologist's impression: EXAMINATION: MR brain/brain stem wo con DATE: INDICATION: Stroke with right facial droop TECHNIQUE: Magnetic resonance imaging (MRI) of the brain and brainstem was performed without intravenous contrast. Sequences included sagittal and axial T1-weighted SE, axial diffusion-weighted FS SE, axial 3D SWAN, axial T2-weighted FLAIR, and axial T2-weighted FSE. Apparent diffusion coefficient (ADC) maps were created. COMPARISON: None. FINDINGS: There are no areas of restricted diffusion to suggest acute infarction. No intracranial hemorrhage or abnormal intracranial mass lesion. There are scattered areas of nonspecific increased T2-weighted signal intensity in the cerebral white matter, predominantly involving the deep and periventricular white matter. There are no intraparenchymal signal abnormalities seen on the other pulse sequences. Symmetric prominence of the sulci consistent with mild age-appropriate diffuse cerebral volume loss. The ventricles are symmetric and normal in size. There are no abnormal extra-axial fluid collections. Flow voids are seen in the cerebral arteries on the T2-weighted sequences consistent with their expected patency. Changes of bilateral intraocular lens replacement. Visualized orbits and soft tissues are unremarkable. IMPRESSION: 1. No acute intracranial process. 2. Age-related changes including mild diffuse volume loss and moderate periventricular predominant nonspecific white matter T2 hyperintensity consistent with chronic small vessel ischemic disease. 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 Q 5 for 10 days * prednisone 60 mg will need taper * HSV 1 and 2 had syphilis pending * speech evaluation * artificial eyes and lubricant (2) Accidental fall: Qualifiers: Encounter type: initial encounter Qualified Code(s): W19.XXXA - Unspecified fall, initial encounter Code(s): W19.XXXA - Unspecified fall, initial encounter Status: Acute Assessment and Plan: patient reported fall x2 at home with acute pain to left hip does have history of severe osteoarthritis, trauma workup negative but patient was nonambulatory emergency department. was on continuous cardiac monitoring as echocardiogram to rule out syncopal episode * pain management scheduled oxycodone and [place] breakthrough pain medication * lidocaine patch to left hip * PT/OT (3) Acute hip pain: Qualifiers: Laterality: right Qualified Code(s): M25.551 - Pain in right hip Code(s): M25.559 - Pain in unspecified hip Status: Acute Assessment and Plan: SEE ABOVE (4) Hypertension: Code(s): I10 - Essential (primary) hypertension Status: Acute Assessment and Plan: * continue patient's metoprolol 12.5 b.i.d. 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 stroke was ruled out she was a fall at home multiple times and nonambulatory PT OT evaluation patient is agreeable to rehab/swing she currently lives alone at home and has some concerns returning that she is nonambulatory at this time due to the left hip pain Quality VTE Prophylaxis VTE prophylaxis: pharmacologic ordered -Patient's previous records reviewed on admission -ER notes reviewed in detail on admission -discussed all findings and current treatment plan with patient/Family/POA -Consultations reviewed for recommendations -Patient's disposition for safe discharge discussed with disease case manager Dictation performed by [employer] direct speech recognition software, therefore emergency room physician assistant variants and typographical errors may occur. Hospitalist MIPS Advance Care Plan I have confirmed that the patient's Advanced Care Plan is present, code status is documented, or surrogate decision maker is listed in patient medical record.: Yes Medication Reconciliation I have utilized all available resources to obtain, update and review the patients current medications (includes all prescriptions, OTC, herbals, cannabis, and nutritional supplements).: Yes The patient is not eligible for med reconciliation; the patient is in a emergent medical situation where delaying treatment would jeopardize the patients health.: No
[2024-08-15 14:00] VITALS: BP 128/74; PULSE 86; RESP 18; TEMP 36.6; O2SAT 93
--- NOTE | 2024-08-15 16:14 | PCSTNOTE ---
Please refer to the Bedside Swallow Evaluation in the EMR. Please note, silent aspiration cannot be ruled out at bedside.
[2024-08-15 16:39] LABS: Syphilis IgG/IgM Antibody Non-Reactive (Nonreactive)
[2024-08-15] MEDS: ARTIFICIAL TEARS OPHTH SOLN 15 ML BOTTLE 1 DROP LEFT EYE ×2 (17:04→21:35)
[2024-08-15] MEDS: ACYCLOVIR 400 MG TABLET PO ×2 (17:04→21:30)
[2024-08-15 21:23] VITALS: BP 115/58; PULSE 75; RESP 18; TEMP 36.6; O2SAT 98
[2024-08-15 21:30] VITALS: PULSE 88; PULSE 96
[2024-08-15] MEDS: MINERAL OIL/WHITE PETROLATUM OINTMENT 1 APPLIC LEFT EYE (21:30)
[2024-08-15] MEDS: ASPIRIN 81 MG ENTERIC TABLET PO (21:30)
[2024-08-16] VITALS (10 sets, daily range): BP systolic 128–155; BP diastolic 64–79; PULSE 65–90; RESP 18–20; TEMP 36.8–36.9; O2SAT 95–96
[2024-08-16] MEDS: oxyCODONE HCL (*CRX) 2.5 MG TAB IR PO ×3 (01:17→16:49)
[2024-08-16 05:39] LABS: Hematocrit 37.9 % (37.0-47.0); Hemoglobin 11.5 g/dL (12.0-15.0); Mean Corpuscular HGB Conc 30.3 g/dl (32-36); Mean Corpuscular Hemoglobin 27.6 pg (26-34); Mean Corpuscular Volume 91.1 fl (80-100); Mean Platelet Volume 9.3 fl (7.4-10.4); Platelet Count Result 436 k/mm3 (150-375); Red Blood Count 4.16 M/mm3 (4.2-5.4); Red Cell Distribution Width 14.4 % (11.5-14.5)
[2024-08-16 06:10] LABS: Alanine Aminotransferase 14 U/L (6-35); Albumin Level 3.5 g/dL (3.5-5.1); Alkaline Phosphatase 60 U/L (38-126); Anion Gap 6 mmol/L (4-12); Aspartate Amino Transferase 27 U/L (14-36); Bilirubin,Total 0.4 mg/dL (0.2-1.3); Blood Urea Nitrogen 15 mg/dL (7-17); Calcium 8.9 mg/dL (8.4-10.2); Carbon Dioxide 30 mmol/L (22-30); Chloride 101 mmol/L (98-107); Estimated CRCL calculation 37 ml/min; Estimated Glomerular Filt Rate > 60; Glucose 129 mg/dL (65-110); Potassium 4.4 mmol/L (3.4-5.0); Sodium 137 mmol/L (137-145); Total Protein 7.1 g/dL (6.3-8.2)
--- NOTE | 2024-08-16 08:40 | P.PNIM_ITS ---
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 Q 5 for 10 days * prednisone 60 mg will need taper * HSV 1 and 2 pending * syphilis non-reactive * speech evaluation * artificial eyes and lubricant (2) Accidental fall: Qualifiers: Encounter type: initial encounter Qualified Code(s): W19.XXXA - Unspecified fall, initial encounter Code(s): W19.XXXA - Unspecified fall, initial encounter Status: Acute Assessment and Plan: patient reported fall x2 at home with acute pain to left hip does have history of severe osteoarthritis, trauma workup negative but patient was nonambulatory emergency department. was on continuous cardiac monitoring as echocardiogram to rule out syncopal episode * pain management scheduled oxycodone and [place] breakthrough pain medication * lidocaine patch to left hip * PT/OT (3) Acute hip pain: Qualifiers: Laterality: right Qualified Code(s): M25.551 - Pain in right hip Code(s): M25.559 - Pain in unspecified hip Status: Acute Assessment and Plan: SEE ABOVE (4) Hypertension: Code(s): I10 - Essential (primary) hypertension Status: Acute Assessment and Plan: * continue patient's metoprolol 12.5 b.i.d. 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 Right facial paralysis still present was seen by speech to cleared for regular diet. Patient with no other complaints. Review of Systems Review of Systems: All systems reviewed & are unremarkable except as noted in HPI and below Exam Const: General: comfortable and no acute distress HENMT: Ears: TM's normal bilaterally Face/Nose/Sinus: Normal nares present Mouth: Yes moist mucous membranes Eyes: General: appearance normal, both eyes and all related structures Eyelids: eyelids normal Other: epiphora noted to right eye Neck: Neck: supple and no JVD Resp: Effort & Inspection: normal respiratory effort Auscultation: clear to auscultation bilaterally Cardio: Rate: regular rate Rhythm: regular rhythm Other: Chest: Barrel GI: GI Palp: Yes Soft to palpation Auscultation: normal bowel sounds Skin: General skin exam: normal color and no rashes or lesions noted Wounds: no wounds Neuro: Speech: normal speech Motor exam (neuro): 5/5 motor strength present throughout Other: oriented to person, oriented to place, oriented to time, moves all extremities, Normal light touch and pain sensation and no focal motor deficits Cranial nerves: right facial paralysis Cognition (Neuro): normal cognition Speech: normal speech, Motor exam (neuro): 5/5 motor strength present throughout Sensory Exam: normal sensation Pupils: Normal pupillary reactivity/response: bilateral Other: Extrem: General: normal to inspection Psych: Mental Status: mental status grossly normal Affect: normal affect Objective Data Vital Signs Vital Signs: Vital Signs - 24 hr 08/15/24 09:13 08/15/24 14:00 08/15/24 21:23 Temperature 97.9 F 97.8 F Pulse Rate 96 86 75 Respiratory Rate 18 18 Blood Pressure 128/74 115/58 L Pulse Oximetry 93 98 Oxygen Delivery 08/15/24 21:30 08/15/24 21:30 08/15/24 21:30 Temperature Pulse Rate 96 88 Respiratory Rate Blood Pressure Pulse Oximetry Oxygen Delivery Room Air 08/16/24 00:00 08/16/24 04:00 08/16/24 06:00 Temperature 98.2 F Pulse Rate 80 77 78 Respiratory Rate 18 Blood Pressure 128/73 Pulse Oximetry 96 Oxygen Delivery Intake/Output Intake/Output: Intake & Output 08/13/24 08/14/24 08/15/24 08/16/24 23:59 23:59 23:59 23:59 Intake Total 850 50 Output Total 410 300 250 Balance -410 550 -200 Meds/Results Medications: Active Medications Generic Name Dose Route Start Last Admin Trade Name Freq PRN Reason Stop Dose Admin Acetaminophen 650 mg 08/14/24 17:54 08/15/24 05:10 Acetaminophen 325 Mg Tablet PO 650 mg Q4H PRN Administration Mild Pain (1-3) or Fever Acyclovir 400 mg 08/15/24 18:00 08/15/24 21:30 Acyclovir 400 Mg Tablet PO 08/25/24 15:01 400 mg 5 TIMES DAILY RAMSES Administration Artificial Tears 1 drop 08/15/24 17:00 08/15/24 21:35 Artificial Tears Ophth Soln 15 Ml Bottle LEFT EYE 1 drop QID RAMSES Administration Aspirin 81 mg 08/14/24 21:00 08/15/24 21:30 Aspirin 81 Mg Enteric Tablet PO 81 mg HS RAMSES Administration Buspirone HCl 5 mg 08/14/24 17:54 08/15/24 05:10 Buspirone Hcl 5 Mg Tablet PO 5 mg Q12H PRN Administration anxiety Enoxaparin Sodium 40 mg 08/15/24 09:00 08/15/24 09:12 Enoxaparin 40 Mg/0.4 Ml Syringe SUB-Q 40 mg DAILY RAMSES Administration Lidocaine 1 patch 08/15/24 09:00 08/15/24 09:12 Lidocaine 5% Patch TRANSDERM 1 patch DAILY RAMSES Administration Metoprolol Tartrate 12.5 mg 08/14/24 21:00 08/15/24 21:30 Metoprolol Tartrate 12.5 Mg Tablet PO 12.5 mg Q12HR RAMSES Administration Multi-Ingred Cream/Lotion/Oil/Oint 1 applic 08/15/24 21:00 08/15/24 21:30 Mineral Oil/White Petrolatum Ointment LEFT EYE 1 applic HS RAMSES Administration Oxycodone HCl 2.5 mg 08/15/24 08:55 08/16/24 01:17 Oxycodone Hcl (*Crx) 2.5 Mg Tab Ir PO 2.5 mg Q8H RAMSES Administration Perflutren Lipid Microsphere 0 ml 08/15/24 08:47 Perflutren Lipid Microspheres 1.5 Ml Vial Diluted To 10 Ml Total Volume IV PUSH 08/18/24 08:47 ONCE PRN adequate visualization Protocol Prednisone 60 mg 08/16/24 08:00 Prednisone 20 Mg Tablet PO DAILY@0800 RAMSES Tramadol HCl 25 mg 08/15/24 08:51 Tramadol Hcl (*Crx) 25 Mg Tablet PO Q6H PRN Pain Rated 4-6 Radiology Results: ITS Impressions Brain MRI 08/15/24 10:33 IMPRESSION: 1. No acute intracranial process. 2. Age-related changes including mild diffuse volume loss and moderate periventricular predominant nonspecific white matter T2 hyperintensity consistent with chronic small vessel ischemic disease. Labs Labs: Laboratory Results - last 24 hr 08/15/24 08/16/24 15:49 05:18 WBC 10.0 RBC 4.16 L Hgb 11.5 L Hct 37.9 MCV 91.1 MCH 27.6 MCHC 30.3 L RDW 14.4 Plt Count 436 H MPV 9.3 Sodium 137 Potassium 4.4 Chloride 101 Carbon Dioxide 30 Anion Gap 6 BUN 15 Creatinine 0.76 Estim Creat Clear Calc 37 Estimated GFR > 60 Glucose 129 H Calcium 8.9 Total Bilirubin 0.4 AST 27 ALT 14 Alkaline Phosphatase 60 Total Protein 7.1 Albumin 3.5 Syphilis IgG/IgM Ab Non-reactive Quality VTE Prophylaxis VTE prophylaxis: pharmacologic ordered -Patient's previous records reviewed on admission -ER notes reviewed in detail on admission -discussed all findings and current treatment plan with patient/Family/POA -Consultations reviewed for recommendations -Patient's disposition for safe discharge discussed with porter sample case Dictation performed by [employer] direct speech recognition software, therefore director of counterintelligence variants and typographical errors may occur. Hospitalist MIPS Advance Care Plan I have confirmed that the patient's Advanced Care Plan is present, code status is documented, or surrogate decision maker is listed in patient medical record.: Yes Medication Reconciliation I have utilized all available resources to obtain, update and review the patients current medications (includes all prescriptions, OTC, herbals, cannabis, and nutritional supplements).: Yes The patient is not eligible for med reconciliation; the patient is in a emergent medical situation where delaying treatment would jeopardize the patients health.: No
[2024-08-16] MEDS: METOPROLOL TARTRATE 12.5 MG TABLET PO ×2 (08:56→21:41)
[2024-08-16] MEDS: predniSONE 20 MG TABLET 60 MG PO (08:56)
[2024-08-16] MEDS: ACYCLOVIR 400 MG TABLET PO ×5 (08:56→21:41)
[2024-08-16] MEDS: LIDOCAINE 5% PATCH 1 PATCH TRANSDERM (08:56)
[2024-08-16] MEDS: ENOXAPARIN 40 MG/0.4 ML SYRINGE SUB-Q (08:56)
[2024-08-16] MEDS: ARTIFICIAL TEARS OPHTH SOLN 15 ML BOTTLE 1 DROP LEFT EYE ×4 (08:57→21:43)
[2024-08-16] MEDS: ASPIRIN 81 MG ENTERIC TABLET PO (21:41)
[2024-08-16] MEDS: MINERAL OIL/WHITE PETROLATUM OINTMENT 1 APPLIC LEFT EYE (21:42)
[2024-08-17] VITALS: PULSE 87
[2024-08-17] MEDS: oxyCODONE HCL (*CRX) 2.5 MG TAB IR PO ×3 (01:49→15:57)
[2024-08-17 04:31] VITALS: PULSE 62
[2024-08-17 05:10] VITALS: BP 127/67; PULSE 73; RESP 16; TEMP 36.6; O2SAT 98
[2024-08-17 05:55] LABS: Hematocrit 37.5 % (37.0-47.0); Hemoglobin 11.4 g/dL (12.0-15.0); Mean Corpuscular HGB Conc 30.4 g/dl (32-36); Mean Corpuscular Hemoglobin 27.5 pg (26-34); Mean Corpuscular Volume 90.6 fl (80-100); Mean Platelet Volume 9.3 fl (7.4-10.4); Platelet Count Result 458 k/mm3 (150-375); Red Blood Count 4.14 M/mm3 (4.2-5.4); Red Cell Distribution Width 14.2 % (11.5-14.5); White Blood Count 9.7 K/mm3 (4.5-10.0)
[2024-08-17 06:18] LABS: Alanine Aminotransferase 14 U/L (6-35); Albumin Level 3.5 g/dL (3.5-5.1); Alkaline Phosphatase 56 U/L (38-126); Anion Gap 6 mmol/L (4-12); Aspartate Amino Transferase 23 U/L (14-36); Bilirubin,Total 0.3 mg/dL (0.2-1.3); Blood Urea Nitrogen 18 mg/dL (7-17); Calcium 8.9 mg/dL (8.4-10.2); Carbon Dioxide 29 mmol/L (22-30); Chloride 101 mmol/L (98-107); Estimated CRCL calculation 40 ml/min; Estimated Glomerular Filt Rate > 60; Glucose 111 mg/dL (65-110); Potassium 3.8 mmol/L (3.4-5.0); Sodium 136 mmol/L (137-145); Total Protein 7.2 g/dL (6.3-8.2)
[2024-08-17 08:00] VITALS: PULSE 73; PULSE 77; RESP 16; O2SAT 98
--- NOTE | 2024-08-17 08:49 | P.PNIM_ITS ---
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 Q 5 for 10 days * prednisone 60 mg will need taper * HSV 1 and 2 pending * syphilis non-reactive * speech evaluation regular diet not at risk for aspiration * artificial eyes and lubricant (2) Accidental fall: Qualifiers: Encounter type: initial encounter Qualified Code(s): W19.XXXA - Unspecified fall, initial encounter Code(s): W19.XXXA - Unspecified fall, initial encounter Status: Acute Assessment and Plan: patient reported fall x2 at home with acute pain to left hip does have history of severe osteoarthritis, trauma workup negative but patient was nonambulatory emergency department. was on continuous cardiac monitoring as echocardiogram to rule out syncopal episode * pain management scheduled oxycodone and OR breakthrough pain medication * lidocaine patch to left hip * PT/OT evaluation recommend SNF/swing for rehab (3) Acute hip pain: Qualifiers: Laterality: right Qualified Code(s): M25.551 - Pain in right hip Code(s): M25.559 - Pain in unspecified hip Status: Acute Assessment and Plan: SEE ABOVE (4) Hypertension: Code(s): I10 - Essential (primary) hypertension Status: Acute Assessment and Plan: * continue patient's metoprolol 12.5 b.i.d. 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 PT OT evaluation pending 08/17/2024: Review of Systems Review of Systems: All systems reviewed & are unremarkable except as noted in HPI and below Exam Const: General: comfortable and no acute distress HENMT: Ears: TM's normal bilaterally Face/Nose/Sinus: Normal nares present Mouth: Yes moist mucous membranes Eyes: General: appearance normal, both eyes and all related structures Eyelids: eyelids normal Other: epiphora noted to right eye Neck: Neck: supple and no JVD Resp: Effort & Inspection: normal respiratory effort Auscultation: clear to auscultation bilaterally Cardio: Rate: regular rate Rhythm: regular rhythm Other: Chest: Barrel GI: Auscultation: normal bowel sounds Skin: General skin exam: normal color and no rashes or lesions noted Wounds: no wounds Neuro: Speech: normal speech Motor exam (neuro): 5/5 motor strength present throughout Other: oriented to person, oriented to place, oriented to time, moves all extremities, Normal light touch and pain sensation and no focal motor deficits Cranial nerves: right facial paralysis Cognition (Neuro): normal cognition Speech: normal speech, Motor exam (neuro): 5/5 motor strength present throughout Sensory Exam: normal sensation Pupils: Normal pupillary reactivity/response: bilateral Other: Extrem: General: normal to inspection Psych: Mental Status: mental status grossly normal Affect: normal affect Objective Data Vital Signs Vital Signs: Vital Signs - 24 hr 08/16/24 09:07 08/16/24 09:52 08/16/24 12:00 Temperature Pulse Rate 80 Respiratory Rate Blood Pressure Pulse Oximetry Oxygen Delivery Room Air Room Air 08/16/24 14:00 08/16/24 16:00 08/16/24 21:39 Temperature 98.4 F 98.2 F Pulse Rate 86 89 90 Respiratory Rate 20 18 Blood Pressure 144/64 H 155/79 H Pulse Oximetry 96 95 Oxygen Delivery 08/16/24 21:40 08/16/24 21:40 08/16/24 21:41 Temperature Pulse Rate 65 82 Respiratory Rate Blood Pressure Pulse Oximetry Oxygen Delivery Room Air 08/17/24 00:00 08/17/24 04:31 08/17/24 05:10 Temperature 97.8 F Pulse Rate 87 62 73 Respiratory Rate 16 Blood Pressure 127/67 Pulse Oximetry 98 Oxygen Delivery Intake/Output Intake/Output: Intake & Output 08/14/24 08/15/24 08/16/24 08/17/24 23:59 23:59 23:59 23:59 Intake Total 850 1850 0 Output Total 410 300 250 Balance -677 473 6074 0 Meds/Results Medications: Active Medications Generic Name Dose Route Start Last Admin Trade Name Freq PRN Reason Stop Dose Admin Acetaminophen 650 mg 08/14/24 17:54 08/15/24 05:10 Acetaminophen 325 Mg Tablet PO 650 mg Q4H PRN Administration Mild Pain (1-3) or Fever Acyclovir 400 mg 08/15/24 18:00 08/16/24 21:41 Acyclovir 400 Mg Tablet PO 08/25/24 15:01 400 mg 5 TIMES DAILY RAMSES Administration Artificial Tears 1 drop 08/17/24 09:00 Artificial Tears Ophth Soln 15 Ml Bottle RIGHT EYE QID RAMSES Aspirin 81 mg 08/14/24 21:00 08/16/24 21:41 Aspirin 81 Mg Enteric Tablet PO 81 mg HS RAMSES Administration Buspirone HCl 5 mg 08/14/24 17:54 08/15/24 05:10 Buspirone Hcl 5 Mg Tablet PO 5 mg Q12H PRN Administration anxiety Enoxaparin Sodium 40 mg 08/15/24 09:00 08/16/24 08:56 Enoxaparin 40 Mg/0.4 Ml Syringe SUB-Q 40 mg DAILY RAMSES Administration Lidocaine 1 patch 08/15/24 09:00 08/16/24 08:56 Lidocaine 5% Patch TRANSDERM 1 patch DAILY RAMSES Administration Metoprolol Tartrate 12.5 mg 08/14/24 21:00 08/16/24 21:41 Metoprolol Tartrate 12.5 Mg Tablet PO 12.5 mg Q12HR RAMSES Administration Multi-Ingred Cream/Lotion/Oil/Oint 1 applic 08/17/24 21:00 Mineral Oil/White Petrolatum Ointment RIGHT EYE HS RAMSES Oxycodone HCl 2.5 mg 08/15/24 08:55 08/17/24 01:49 Oxycodone Hcl (*Crx) 2.5 Mg Tab Ir PO 2.5 mg Q8H RAMSES Administration Perflutren Lipid Microsphere 0 ml 08/15/24 08:47 Perflutren Lipid Microspheres 1.5 Ml Vial Diluted To 10 Ml Total Volume IV PUSH 08/18/24 08:47 ONCE PRN adequate visualization Protocol Prednisone 60 mg 08/16/24 08:00 08/16/24 08:56 Prednisone 20 Mg Tablet PO 60 mg DAILY@0800 RAMSES Administration Tramadol HCl 25 mg 08/15/24 08:51 Tramadol Hcl (*Crx) 25 Mg Tablet PO Q6H PRN Pain Rated 4-6 Radiology Results: ITS Impressions Brain MRI 08/15/24 10:33 IMPRESSION: 1. No acute intracranial process. 2. Age-related changes including mild diffuse volume loss and moderate periventricular predominant nonspecific white matter T2 hyperintensity consistent with chronic small vessel ischemic disease. Labs Labs: Laboratory Results - last 24 hr 08/17/24 05:20 WBC 9.7 RBC 4.14 L Hgb 11.4 L Hct 37.5 MCV 90.6 MCH 27.5 MCHC 30.4 L RDW 14.2 Plt Count 458 H MPV 9.3 Sodium 136 L Potassium 3.8 Chloride 101 Carbon Dioxide 29 Anion Gap 6 BUN 18 H Creatinine 0.70 Estim Creat Clear Calc 40 Estimated GFR > 60 Glucose 111 H Calcium 8.9 Total Bilirubin 0.3 AST 23 ALT 14 Alkaline Phosphatase 56 Total Protein 7.2 Albumin 3.5 Quality VTE Prophylaxis VTE prophylaxis: pharmacologic ordered -Patient's previous records reviewed on admission -ER notes reviewed in detail on admission -discussed all findings and current treatment plan with patient/Family/POA -Consultations reviewed for recommendations -Patient's disposition for safe discharge discussed with counseling case manager Dictation performed by [employer] direct speech recognition software, therefore rock duster variants and typographical errors may occur. Hospitalist MIPS Advance Care Plan I have confirmed that the patient's Advanced Care Plan is present, code status is documented, or surrogate decision maker is listed in patient medical record.: Yes Medication Reconciliation I have utilized all available resources to obtain, update and review the patients current medications (includes all prescriptions, OTC, herbals, cannabis, and nutritional supplements).: Yes The patient is not eligible for med reconciliation; the patient is in a emergent medical situation where delaying treatment would jeopardize the patients health.: No
[2024-08-17] MEDS: METOPROLOL TARTRATE 12.5 MG TABLET PO (09:18)
[2024-08-17] MEDS: ARTIFICIAL TEARS OPHTH SOLN 15 ML BOTTLE 1 DROP RIGHT EYE ×2 (09:19→12:36)
[2024-08-17] MEDS: predniSONE 20 MG TABLET 60 MG PO (09:19)
[2024-08-17] MEDS: ENOXAPARIN 40 MG/0.4 ML SYRINGE SUB-Q (09:19)
[2024-08-17] MEDS: ACYCLOVIR 400 MG TABLET PO ×3 (09:19→15:57)
[2024-08-17] MEDS: LIDOCAINE 5% PATCH 1 PATCH TRANSDERM (09:20)
[2024-08-17 12:00] VITALS: PULSE 89
--- NOTE | 2024-08-17 14:15 | P.DS_ITS ---
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 Status: Acute (2) Accidental fall: Qualifiers: Encounter type: initial encounter Qualified Code(s): W19.XXXA - Unspecified fall, initial encounter Code(s): W19.XXXA - Unspecified fall, initial encounter Status: Acute (3) Acute hip pain: Qualifiers: Laterality: right Qualified Code(s): M25.551 - Pain in right hip Code(s): M25.559 - Pain in unspecified hip Status: Acute (4) Hypertension: Code(s): I10 - Essential (primary) hypertension Status: Acute DS: Summary Hospital Course Reason for hospitalization: Right facial paralysis/right hip pain/fall Hospital Course: Admission: Jaqueline Verma is a 89 year old female who had presented to [facility] emergency room after a fall at home with right hip pain. Patient is somewhat confused on events leading up to her arrival to ER. per patient Sunday morning she had fallen and called a friend who called EMS for an assist up but did not seek medical attention Sunday when she was walking with her walker from the bathroom patient states she fell again at that time she denied dizziness, chest pain, shortness a breath but did not recall certain events during those episodes she did not have loss of bowel or stool. after speaking with her daughter who requested she contact her primary care physician patient's primary requested patient go to the emergency room for evaluation. per daughter she spoke with her mother on Sunday08/10/2024 and she sounded herself on the telephone however when she spoke to her mom Sunday night she had some intermittent confusion states something just felt off. patient is past medical history osteoarthritis and hypertension. patient was evaluated in the emergency department trauma workup was negative for acute fracture but patient was immobile due to severe pain she was admitted to the medical unit for further pain management and evaluation by PT OT. upon my assessment of patient fo at [facility] as we were reviewing history of events and past medical history patient reported not feeling well and reported nausea at which time I saw left facial drooping and patient stating she felt funny strength to upper and lower extremities bilateral were equal she was still able to follow commands no visual changes no slurred speech. At that time a code stroke was called and patient was taken down for a stat CT head which showed no acute intracranial process and age-related changes consistent with chronic small-vessel ischemic disease. CTA was negative for any occlusions, patient with continued left facial drop CVA vs corbin's palsey no previous history of either. Patient was then transferred to [facility] for further evaluation with MRI, ECHO and neurology consult. Hospital Course: Patient admitted to the medical unit on cardiac monitoring underwent brain MRI and brainstem which showed no acute abnormalities, echocardiogram with no significant findings or shunting and evaluated by Neurology who also agreed. 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 a speech eval was also completed with no risk of aspiration. Per PT and OT evaluation recommended long term facility/ swing for continued rehab patient and family both agreed to [facility] swing bed at which time patient was then discharged for further rehabilitation prior to returning home. Status at Discharge Functional status at discharge: uses cane/walker Overall status at discharge: patient is progressing back to baseline Time Spent with Patient Time attestation: Total time spent providing and/or coordinating discharge services: Time spent: Greater than 30 minutes Exam Const: General: comfortable and no acute distress HENMT: Ears: TM's normal bilaterally Face/Nose/Sinus: Normal nares present Mouth: Yes moist mucous membranes Eyes: General: appearance normal, both eyes and all related structures Eyelids: eyelids normal Other: epiphora noted to right eye Neck: Neck: supple and no JVD Resp: Effort & Inspection: normal respiratory effort Auscultation: clear to auscultation bilaterally Cardio: Rate: regular rate Rhythm: regular rhythm Other: Chest: Barrel GI: Auscultation: normal bowel sounds Skin: General skin exam: normal color and no rashes or lesions noted Wounds: no wounds Neuro: Speech: normal speech Motor exam (neuro): 5/5 motor strength present throughout Other: oriented to person, oriented to place, oriented to time, moves all extremities, Normal light touch and pain sensation and no focal motor deficits Cranial nerves: right facial paralysis Cognition (Neuro): normal cognition Speech: normal speech, Motor exam (neuro): 5/5 motor strength present throughout Sensor y Exam: normal sensation Pupils: Normal pupillary reactivity/response: bilateral Other: Extrem: General: normal to inspection Psych: Mental Status: mental status grossly normal Affect: normal affect DS: Data Data Completed and Pending Labs on day of discharge: Labs from last 24 hours 08/17/24 05:20 WBC 9.7 RBC 4.14 L Hgb 11.4 L Hct 37.5 MCV 90.6 MCH 27.5 MCHC 30.4 L RDW 14.2 Plt Count 458 H MPV 9.3 Sodium 136 L Potassium 3.8 Chloride 101 Carbon Dioxide 29 Anion Gap 6 BUN 18 H Creatinine 0.70 Estim Creat Clear Calc 40 Estimated GFR > 60 Glucose 111 H Calcium 8.9 Total Bilirubin 0.3 AST 23 ALT 14 Alkaline Phosphatase 56 Total Protein 7.2 Albumin 3.5 Imaging Radiologist's impression: Radiology Results: ITS Impressions Brain MRI 08/15/24 10:33 IMPRESSION: 1. No acute intracranial process. 2. Age-related changes including mild diffuse volume loss and moderate periventricular predominant nonspecific white matter T2 hyperintensity consistent with chronic small vessel ischemic disease. Discharge Plan Discharge Attending physician on discharge: Taz Og Consulting providers: Enriqueta Little; Jane Huber Discharging Clinician: Enriqueta Little Anticipated Discharge Date/Time: 08/17/24 14:07 Patient Disposition: Hospital Swing Bed Activity: as tolerated Diet: as tolerated Discharge Instructions: Corbin's Palsy: * Continue with prednisone and acyclovir as prescribed * Continue with irrigation and artificial tears Right Hip pain OA/unsteady gait/ * Plan for PT/OT at [facility] * Continue with Pain management How can you care for yourself at home? ? Keep track of any new symptoms or changes in your symptoms. ? Rest until you feel better. ? Be safe with medicines. Take your medicines exactly as prescribed. Call your doctor if you think you are having a problem with your medicine. ? Do not drive after taking a prescription pain medicine. ? Ensure to follow-up with primary care physician as indicated and provide updated medication list provided to you at discharge. When should you call for help? Call 911 anytime you think you may need emergency care. For example, call if: ? You passed out (lost consciousness). Call your doctor now or seek immediate medical care if: ? You have new symptoms like fever, difficulty breathing, Chest pain, vomiting, or rash. ? You have new or different pain. ? You are confused and are having trouble thinking clearly. ? Your symptoms are getting worse. Watch closely for changes in your health, and be sure to contact your doctor if: ? You do not get better as expected. Patient Instructions: Antibiotic Form, Corbin Palsy (DC), Osteoarthritis (DC) Patient Language: Cuban Stand Alone Forms: General Discharge Information Follow-up/Referrals: John Lopez MD [Primary Care Provider] - 4 Weeks Discharge Medications: New acyclovir 400 mg Tablet 400 mg PO 5 TIMES DAILY Qty: 2 0RF lidocaine [Lidoderm] 5 % Adhesive Patch,Medicated 1 patch transdermal DAILY Qty: 1 0RF Artificial Tears(ey-rmdd-ikex) 1-0.2-0.2 % Drops 1 drp RIGHT EYE QID Qty: 1 0RF prednisone 20 mg Tablet 60 mg PO DAILY@0800 Qty: 12 0RF Lubrifresh PM 83-15 % Ointment 1 applic RIGHT EYE HS Qty: 1 0RF Continued buspirone 5 mg tablet 5 mg PO BID PRN (Reason: anxiety) Ca-D3-mag td-pxys-lod-rachel-bor 600 mg calcium- 20 mcg-50 mg tablet 1 tablet PO .am aspirin 81 mg tablet,delayed release (DR/EC) 81 mg PO HS acetaminophen 500 mg capsule 1,000 mg PO BID PRN (Reason: pain) Changed metoprolol tartrate 25 mg tablet 12.5 mg PO DAILY Qty: 30 0RF Patient Comments: patient takes 12.5 mg in the AM and 12.5 in the PM Date of admission: 08/14/24 17:00 Primary Care Provider: John Lopez Admitting Provider: Taz Og Attending physician on admission: Taz Og Condition: Stable Quality VTE Prophylaxis VTE prophylaxis: pharmacologic ordered Hospitalist MIPS Heart Failure (Exclusion) Patient has history of Heart Transplant or Left Ventricular Assistive Device?: No IF YES, STOP HERE Heart Failure (Qualifier) Patient has current or prior documentation of LVEF less than or equal to 40%, or mod/servere depressed LVSF?: No IF NO, STOP HERE
--- NOTE | 2024-08-17 16:50 | P.CONNEU_ITS ---
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 She has been started on antiviral medication as well as steroids and she has eye drop in place since he is not able to close the eye fully. She is aware of preventing the dryness of the eye. I expect her to improve gradually and however if there is any further problem I shall be glad to see her in my office. I have given her my phone number. (2) Accidental fall: Qualifiers: Encounter type: initial encounter Qualified Code(s): W19.XXXA - Unspecified fall, initial encounter Code(s): W19.XXXA - Unspecified fall, initial encounter Status: Acute Assessment and Plan: This led to some pain in the right hip however she has had some issues the right hip on and off in the past also. Plan Follow up in Neurology if the right facial weakness does not improve. Consult date: 08/17/24 HPI: Jaqueline Verma is a 89 year old female Who presented to the hospital after having had a fall and right hip pain and she was thought to be confused. Subsequently she was noted to have right facial weakness which has persisted since that time. Later on it was thought to be a Corbin's palsy the patient was started on acyclovir and prednisone. She also has eye drops for the right eye to prevent dryness. MRI of the brain was performed which did not show any abnormality. Emergency room she had a CT scan of brain as well as CT angiogram head and neck which did not show any significant abnormalities. Patient denies any other additional symptoms. Review of Systems 2 Review of Systems: All systems reviewed & are unremarkable except as noted in HPI and below PMFSH Past Medical History Medical History Hypertension Osteoarthritis Surgical History Surgical History History of hip replacement History of cholecystectomy Family History Family History Other No significant family history Social History Social History Smoking status: Never smoker Second hand tobacco smoke exposure: Yes Alcohol intake: never Substance use: never Do You Feel Safe in your Home?: Yes Lack of Transportation: No Lack of Food: Never True Current Housing: I Have Housing Concerned About Future Housing: No Difficulty Paying Gas/Electric Bills: No Difficulty Paying for Meds: No Currently Unemployed: No Education: High School Diploma/GED Difficulty w/ Childcare or Family Care: No Living arrangements: with family Sexual Orientation (if Verbalized by the Patient): Straight or Heterosexual Spiritual care concerns: No Meds Home Medications and Allergies Home Medications ?Medication ?Instructions ?Recorded ?Confirmed ?Type buspirone 5 mg tablet 5 mg PO BID PRN anxiety 08/13/24 08/14/24 History acetaminophen 500 mg capsule 1,000 mg PO BID PRN pain 08/14/24 08/14/24 History aspirin 81 mg tablet,delayed 81 mg PO HS 08/14/24 08/14/24 History release calcium 600 mg-D3 20 mcg-magnesium 1 tablet PO .am 08/14/24 08/14/24 History 50 bh-Ow-vbviep-vonnie-boron tablet acyclovir 400 mg tablet 400 mg PO 5 TIMES DAILY #2 tabs 08/17/24 Rx lidocaine 5 % topical patch 1 patch transdermal DAILY #1 ea 08/17/24 Rx (Lidoderm) metoprolol tartrate 25 mg tablet 12.5 mg (1/2 x 25 mg) PO DAILY #30 08/17/24 08/14/24 Rx tabs peg [id number]-[id number] 1 1 drp RIGHT EYE QID #1 mL 08/17/24 Rx %-0.2 %-0.2 % eye drops (Artificial Tears ([id number])) prednisone 20 mg tablet 60 mg (3 x 20 mg) PO DAILY@0800 08/17/24 Rx #12 tabs white petrolatum-mineral oil 83 1 applic RIGHT EYE HS #1 g 08/17/24 Rx %-15 % eye ointment (Lubrifresh PM) Allergies Allergy/AdvReac Type Severity Reaction Status Date / Time No Known Allergies Allergy Verified 08/14/24 17:48 Vital Signs Vital Signs - 24 hr 08/16/24 21:39 08/16/24 21:40 08/16/24 21:40 Temperature 98.2 F Pulse Rate 90 65 Respiratory Rate 18 Blood Pressure 155/79 H Pulse Oximetry 95 Oxygen Delivery Room Air 08/16/24 21:41 08/17/24 00:00 08/17/24 04:31 Temperature Pulse Rate 82 87 62 Respiratory Rate Blood Pressure Pulse Oximetry Oxygen Delivery 08/17/24 05:10 08/17/24 08:00 08/17/24 08:00 Temperature 97.8 F Pulse Rate 73 73 77 Respiratory Rate 16 16 Blood Pressure 127/67 Pulse Oximetry 98 98 Oxygen Delivery Room Air 08/17/24 12:00 Temperature Pulse Rate 89 Respiratory Rate Blood Pressure Pulse Oximetry Oxygen Delivery Exam 2 Narrative: Fully conscious alert oriented to self time place and person. No aphasia or dysarthria. Attention head and neck shows no evidence of external trauma. Cranial nerves annual testing revealed a right intranuclear facial weakness. No facial sensory loss. Tongue was midline. Other cranial normal limits. Visual pettit by confrontation also normal. Motor system normal power and tone in both upper and lower limbs. No cogwheeling or involuntary movements seen. Deep tendon reflexes did not show any significant asymmetry. Coordination finger- nose appears normal. Results Labs 08/17/24 05:20 08/17/24 05:20 Labs: Short CBC 08/17/24 Range/Units 05:20 WBC 9.7 (4.5-10.0) K/mm3 Hgb 11.4 L (12.0-15.0) g/dL Hct 37.5 (37.0-47.0) % Plt Count 458 H (150-375) k/mm3 BMP 08/17/24 05:20 Sodium 136 L Potassium 3.8 Chloride 101 Carbon Dioxide 29 BUN 18 H Creatinine 0.70 Glucose 111 H Calcium 8.9 Liver Function 08/17/24 Range/Units 05:20 Total Bilirubin 0.3 (0.2-1.3) mg/dL AST 23 (14-36) U/L ALT 14 (6-35) U/L Alkaline Phosphatase 56 (38-126) U/L Albumin 3.5 (3.5-5.1) g/dL
[2024-08-18 23:39] LABS: Herpes Simplex Type 1 DNA PCR Not Detected (Not Detected); Herpes Simplex Type 2 DNA PCR Not Detected (Not Detected)
== END 2024-08-17 16:10 | disposition swing bed (61) | DRG 74 ==
PROVIDERS: Nurse Practitioner Family; Nurse Practitioner Gerontology; Admitting Provider General Practice; PCP Internal Medicine; Visit Provider General Practice
DX: G51.0 Bell's palsy (principal); W19.XXXA Unspecified fall, initial encounter; I10 Essential (primary) hypertension; M16.11 Unilateral primary osteoarthritis, right hip; Z79.82 Long term (current) use of aspirin
CPT/HCPCS: 36415; 70551; 80048; 80053; 81001; 85025; 85027; 86593; 87529; 92526; 92610; 93306; 96375; 97161; 97165; A9270; J1650; J7512

== ENCOUNTER 2024-08-17 17:04 | Inpatient (IN) | payer MEDICARE, SELFPAY ==
--- NOTE | ~2024-08-17 | XR_ITS ---
XR hip BI 2V w AP pelvis Ordering provider: Enriqueta Little APRN History: . Fracture of the proximal right femoral neck . Comparison: None. FINDINGS: BONES: Fracture of the right femoral neck. HIP JOINT SPACES: Left hip arthroplasty. Severe right hip osteoarthritic changes. SACROILIAC JOINT SPACES/LUMBAR SPINE: The sacroiliac joint spaces are normal. Mild degenerative romo es of the visualized lower lumbar spine. PUBIC SYMPHYSIS: Pubic symphysitis. SOFT TISSUES: Normal. IMPRESSION: Fracture right femoral neck. Reviewed, dictated and finalized at location A.
--- NOTE | ~2024-08-17 | MR_ITS ---
MRI of the right hip Clinical history: Pain Technique: Coronal T1-weighted, T2-weighted, and proton-density fat-sat images, and axial T1-weighted and proton-density fat-sat images were acquired through the pelvis. Coronal T2-weighted images and c oronal, axial, and sagittal proton-density fat-sat images were acquired through the right hip. Follow ing intravenous administration of 11 cc MultiHance gadolinium, T1-weighted fat-sat imaging was perfor med in the axial, coronal, and sagittal planes. Findings: There is an acute subcapital fracture of the proximal femoral neck with increased varus ang ulation major distal fracture evident. There is prominent marrow edema surrounding the fracture site. There is associated moderate right hip joint effusion. There is extensive surrounding soft tissue ed aleksander, as well as edematous change of the right pectineus and obturator internus muscle bellies. There is also extensive edematous change of the right iliopsoas muscle belly. There is underlying moderate degenerative change of the right hip joint, with diffuse chondromalacia and superior joint space narrowing. Probable left hip arthroplasty in place with extensive susceptibility artifact in this region. SI bertha nts appear intact. IMPRESSION: Acute subcapital fracture of the proximal right femoral neck with increased varus attenuation. Extensive stranding soft tissue edema and posttraumatic strain or contusions of the right pectineus, obturator internus, and iliopsoas muscles, with extensive edema of these muscle bellies. Underlying moderate degenerative change of the right hip joint. Probable left hip arthroplasty. Reviewed, dictated and finalized at location . IMPRESSION: Acute subcapital fracture of the proximal right femoral neck with increased majo us attenuation. Extensive stranding soft tissue edema and posttraumatic strain or contusions of the right pectineus, obturator internus, and iliopsoas muscles, with extensive edema of these muscle bellies. Underlying moderate degenerative change of the right hip joint. Probable left h ip arthroplasty.
--- NOTE | ~2024-08-17 | MR_ITS ---
MRI of the lumbar spine Clinical History: Right hip pain radiating to right leg Technique: Axial T2-weighted images, and sagittal T1-weighted, T2-weighted, and T2 fat-sat images wer e acquired. Following intravenous administration of 11 cc MultiHance gadolinium, T1-weighted fat-sat imaging was performed in the axial and sagittal planes. Findings: There is no fracture or subluxation of the lumbar spine. Vertebral bodies maintain normal h eight and alignment. No bone marrow signal abnormality seen. At L1-L2, there is no disc bulge or herniation. There is mild facet arthropathy. No central canal allyson nosis or neural foraminal narrowing. At L2-L3, there is minimal disc bulge. No spinal canal stenosis. There is mild bilateral neural sanju inal narrowing. At L3-L4, there is minimal disc bulge. There is advanced facet arthropathy. No central canal stenosis . There is mild bilateral neural foraminal narrowing. At L4-L5, there is diffuse disc bulge with severe facet arthropathy. No ilene central canal stenosis. There is mild bilateral neural foraminal narrowing. At L5-S1, there is minimal disc bulge with moderate facet arthropathy. No central canal stenosis or d efinite neural foraminal narrowing. Paravertebral soft tissues are unremarkable. No abnormal postcontrast enhancement identified. Impression: Mild degenerative spondylosis overall, as detailed above. Reviewed, dictated and finalized at [facility]. Impression: Mild degenerative spondylosis overall, as detailed above.
--- NOTE | 2024-08-17 17:05 | PC.NURSE ---
Patient arrived to facility in privately owned vehicle, accompanied by her daughter and friend. Patient arrived to unit in w/c accompanied by policy writer typist, and daughter. Patient admitted to room 202 for continued therapy. Patient and family educated on fall prevention, visiting hours, general hospital policies and given folder. Patient educated on use of bed controls and call light. Patient and family voiced understanding.
[2024-08-17 17:14] VITALS: BMI 21.7
[2024-08-17 18:34] VITALS: PULSE 87; RESP 16; O2SAT 94
[2024-08-17 18:43] VITALS: BP 162/76; PULSE 87; RESP 16; TEMP 36.6; O2SAT 94
[2024-08-17 19:23] VITALS: PULSE 70; RESP 16; O2SAT 96
[2024-08-17 20:00] VITALS: PULSE 70; RESP 16; O2SAT 96
[2024-08-17] MEDS: ACYCLOVIR 200 MG CAPSULE 400 MG PO (21:12)
[2024-08-17] MEDS: ASPIRIN 81 MG ENTERIC TABLET PO (21:12)
[2024-08-17] MEDS: SENNA/DOCUSATE SODIUM TABLET 1 TAB PO (21:12)
[2024-08-17] MEDS: ARTIFICIAL TEARS OPHTH SOLN 15 ML BOTTLE 1 DROP RIGHT EYE (21:12)
[2024-08-18] VITALS (7 sets, daily range): BP systolic 146–154; BP diastolic 69–93; PULSE 74–92; RESP 16; TEMP 35.8–36.7; O2SAT 95–98
[2024-08-18] MEDS: LIDOCAINE 5% PATCH 1 PATCH TRANSDERM (09:26)
[2024-08-18] MEDS: METOPROLOL TARTRATE 12.5 MG TABLET PO ×2 (09:27→21:15)
[2024-08-18] MEDS: oxyCODONE HCL (*CRX) 2.5 MG TAB IR PO ×3 (09:27→18:00)
[2024-08-18] MEDS: ACYCLOVIR 200 MG CAPSULE 400 MG PO ×5 (09:27→21:14)
[2024-08-18] MEDS: ARTIFICIAL TEARS OPHTH SOLN 15 ML BOTTLE 1 DROP RIGHT EYE ×4 (09:46→21:25)
--- NOTE | 2024-08-18 11:53 | P.HP_ITS ---
H&P: HPI History of Present Illness Date/Time: 08/18/24 11:53 Chief Complaint: Fall/right hip pain/ Corbin's palsy/ rehab Narrative: Jaqueline Verma is a 89 year old female who was admitted to [facility] swing bed f or further rehabilitation following hospitalization. Patient has past medical history osteoarthritis, severe right osteoarthritis and hypertension. patient was evaluated on the medical unit initially it [facility] where she was found to have new right-sided facial droop at which time a code stroke was called and patient was taken down for a stat CT head which showed no acute intracranial process and age-related changes consistent with chronic small- vessel ischemic disease. CTA was negative for any occlusions, patient with continued to have right facial drop CVA vs corbin's palsey no previous history of either. Patient was then transferred to 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 Review of Systems Review of Systems: All systems reviewed & are unremarkable except as noted in HPI and below PMFSH Past Medical History Medical History Hypertension Osteoarthritis Surgical History Surgical History History of hip replacement History of cholecystectomy Family History Family History Other No significant family history Social History Social History Smoking status: Never smoker Second hand tobacco smoke exposure: Yes Alcohol intake: never Substance use: never Substance use type: does not use Do You Feel Safe in your Home?: Yes Lack of Transportation: No Lack of Food: Never True Current Housing: I Have Housing Concerned About Future Housing: No Difficulty Paying Gas/Electric Bills: No Difficulty Paying for Meds: No Currently Unemployed: No Education: High School Diploma/GED Difficulty w/ Childcare or Family Care: No Living arrangements: with family Sexual Orientation (if Verbalized by the Patient): Straight or Heterosexual Spiritual care concerns: No Meds Home Medications and Allergies Home Medications ?Medication ?Instructions ?Recorded ?Confirmed ?Type buspirone 5 mg tablet 5 mg PO BID PRN anxiety 08/13/24 08/17/24 History acetaminophen 500 mg capsule 1,000 mg PO BID PRN pain 08/14/24 08/17/24 History aspirin 81 mg tablet,delayed 81 mg PO HS 08/14/24 08/17/24 History release calcium 600 mg-D3 20 mcg-magnesium 1 tablet PO .am 08/14/24 08/17/24 History 50 ru-Vu-vniwvw-vonnie-boron tablet acyclovir 400 mg tablet 400 mg PO 5 TIMES DAILY #2 tabs 08/17/24 08/17/24 Rx lidocaine 5 % topical patch 1 patch transdermal DAILY #1 ea 08/17/24 08/17/24 Rx (Lidoderm) metoprolol tartrate 25 mg tablet 12.5 mg (1/2 x 25 mg) PO DAILY #30 08/17/24 08/17/24 Rx tabs peg [id number] 1 1 drp RIGHT EYE QID #1 mL 08/17/24 08/17/24 Rx %-0.2 %-0.2 % eye drops (Artificial Tears ([id number])) prednisone 20 mg tablet 60 mg (3 x 20 mg) PO DAILY@0800 08/17/24 08/17/24 Rx #12 tabs white petrolatum-mineral oil 83 1 applic RIGHT EYE HS #1 g 08/17/24 08/17/24 Rx %-15 % [facility] Allergies Allergy/AdvReac Type Severity Reaction Status Date / Time No Known Allergies Allergy Verified 08/14/24 17:48 Vital Signs Vital Signs - 24 hr 08/17/24 18:34 08/17/24 18:43 08/17/24 19:23 Temperature 97.8 F Pulse Rate 87 87 70 Respiratory Rate 16 16 16 Blood Pressure 162/76 H Pulse Oximetry 94 94 96 Oxygen Delivery Room Air Room Air Room Air 08/17/24 20:00 08/18/24 00:00 08/18/24 07:45 Temperature 98.1 F 97 F L Pulse Rate 70 74 86 Respiratory Rate 16 16 16 Blood Pressure 154/84 H 151/93 H Pulse Oximetry 96 95 98 Oxygen Delivery Room Air Room Air Room Air 08/18/24 08:25 08/18/24 09:27 Temperature Pulse Rate 86 86 Respiratory Rate 16 Blood Pressure Pulse Oximetry 98 Oxygen Delivery Room Air Exam Const: General: comfortable and no acute distress HENMT: Ears: TM's normal bilaterally Face/Nose/Sinus: Normal nares present Mouth: Yes moist mucous membranes Eyes: General: appearance normal, both eyes and all related structures Sclera: sclerae normal Pupils: Equal, round and reactive pupils present EOM: EOMs intact bilaterally Neck: Neck: supple and no JVD Resp: Effort & Inspection: normal respiratory effort Auscultation: clear to auscultation bilaterally Cardio: Rate: regular rate Rhythm: regular rhythm GI: GI Palp: Yes Soft to palpation Auscultation: normal bowel sounds Skin: General skin exam: normal color and no rashes or lesions noted Wounds: no wounds Neuro: General: gait normal Speech: normal speech Motor exam (neuro): 5/5 motor strength present throughout Other: Right sided facial paralysis Extrem: General: normal to inspection Psych: Mental Status: mental status grossly normal Affect: normal affect H&P: Results Labs Labs: Short CBC 08/15/24 Range/Units 05:42 WBC 9.2 (4.5-10.0) K/mm3 Hgb 11.6 L (12.0-15.0) g/dL Hct 37.9 (37.0-47.0) % Plt Count 436 H (150-375) k/mm3 BMP 08/15/24 05:42 Sodium 135 L Potassium 4.2 Chloride 99 Carbon Dioxide 28 BUN 13 Creatinine 0.75 Glucose 111 H Calcium 8.9 Urine 08/14/24 Range/Units 23:27 Urine Color Yellow (Yellow) Urine Appearance Cloudy H (Clear) Urine pH 5.5 (5.0-9.0) Ur Specific [place] 1.040 H (1.001-1.035) Urine Protein 1+ H (Negative) mg/dL Urine Glucose (UA) Negative (Negative) mg/dL Imaging MRI - head: Radiologist's impression: EXAMINATION: MR brain/brain stem wo con DATE: INDICATION: Stroke with right facial droop TECHNIQUE: Magnetic resonance imaging (MRI) of the brain and brainstem was performed without intravenous contrast. Sequences included sagittal and axial T1-weighted SE, axial diffusion-weighted FS SE, axial 3D SWAN, axial T2-weighted FLAIR, and axial T2-weighted FSE. Apparent diffusion coefficient (ADC) maps were created. COMPARISON: None. FINDINGS: There are no areas of restricted diffusion to suggest acute infarction. No intracranial hemorrhage or abnormal intracranial mass lesion. There are scattered areas of nonspecific increased T2-weighted signal intensity in the cerebral white matter, predominantly involving the deep and periventricular white matter. There are no intraparenchymal signal abnormalities seen on the other pulse sequences. Symmetric prominence of the sulci consistent with mild age-appropriate diffuse cerebral volume loss. The ventricles are symmetric and normal in size. There are no abnormal extra-axial fluid collections. Flow voids are seen in the cerebral arteries on the T2-weighted sequences consistent with their expected patency. Changes of bilateral intraocular lens replacement. Visualized orbits and soft tissues are unremarkable. IMPRESSION: 1. No acute intracranial process. 2. Age-related changes including mild diffuse volume loss and moderate periventricular predominant nonspecific white matter T2 hyperintensity consistent with chronic small vessel ischemic disease. Assessment and Plan Assessment and plan (1) Facial paralysis/[place] palsy: Code(s): G51.0 - Corbin's palsy Status: Acute Assessment and Plan: Patient had new onset left facial drooping appeared consistent with Corbin's palsy however due to patient's age was concerned for possible stroke patient was transferred here to [place] CT, CTA, MRI of head negative for stroke * Continue acyclovir 400 mg p.o. Q 5 for 10 days 36 doses left * prednisone taper * artificial eyes and lubricant * May tape eye close at night or when resting (2) Accidental fall: Qualifiers: Encounter type: initial encounter Qualified Code(s): W19.XXXA - Unspecified fall, initial encounter Code(s): W19.XXXA - Unspecified fall, initial encounter Status: Acute Assessment and Plan: patient reported fall x2 at home with acute pain to left hip does have history of severe osteoarthritis, trauma workup negative but patient was nonambulatory emergency department. was on continuous cardiac monitoring as echocardiogram to rule out syncopal episode * pain management scheduled oxycodone and MO breakthrough pain medication * lidocaine patch to left hip * PT/OT [facility] (3) Acute hip pain: Qualifiers: Laterality: right Qualified Code(s): M25.551 - Pain in right hip Code(s): M25.559 - Pain in unspecified hip Status: Acute Assessment and Plan: SEE ABOVE (4) Hypertension: Code(s): I10 - Essential (primary) hypertension Status: Acute Assessment and Plan: * continue patient's metoprolol 12.5 b.i.d. * monitor BP per unit protocol Plan Code status: Full code per patient DVT prophylaxis: SCD's Stress ulcer prophylaxis: NA PT/OT notes: PT/OT evaluation Disposition: patient was admitted to [facility] bed for continued rehabilitation will continue with physical and occupational therapy to build endurance and strength plan is to hopefully return home when able to perform her own ADLs and care for self. Quality VTE Prophylaxis VTE prophylaxis: pharmacologic ordered -Patient's previous records reviewed on admission -ER notes reviewed in detail on admission -discussed all findings and current treatment plan with patient/Family/POA -Consultations reviewed for recommendations -Patient's disposition for safe discharge discussed with patient case manager Dictation performed by reportbrain direct speech recognition software, therefore military logistics specialist variants and typographical errors may occur. Hospitalist MIPS Advance Care Plan I have confirmed that the patient's Advanced Care Plan is present, code status is documented, or surrogate decision maker is listed in patient medical record.: Yes Medication Reconciliation I have utilized all available resources to obtain, update and review the patients current medications (includes all prescriptions, OTC, herbals, cannabis, and nutritional supplements).: Yes The patient is not eligible for med reconciliation; the patient is in a emergent medical situation where delaying treatment would jeopardize the patients health.: No
[2024-08-18] MEDS: ASPIRIN 81 MG ENTERIC TABLET PO (21:15)
[2024-08-18] MEDS: SENNA/DOCUSATE SODIUM TABLET 1 TAB PO (21:15)
[2024-08-18] MEDS: LORATADINE 10 MG TABLET PO (21:18)
[2024-08-18] MEDS: traMADol HCL (*CRX) 50 MG TABLET PO (21:24)
[2024-08-19] VITALS: BP 143/69; PULSE 84; RESP 16; TEMP 36.3; O2SAT 95
[2024-08-19 07:40] VITALS: BP 154/69; PULSE 73; RESP 18; TEMP 35.9; O2SAT 95
[2024-08-19 08:30] VITALS: PULSE 73; RESP 18; O2SAT 95
[2024-08-19 09:00] VITALS: PULSE 73
[2024-08-19] MEDS: METOPROLOL TARTRATE 12.5 MG TABLET PO ×2 (09:00→20:54)
[2024-08-19] MEDS: LIDOCAINE 5% PATCH 1 PATCH TRANSDERM (09:00)
[2024-08-19] MEDS: ACYCLOVIR 200 MG CAPSULE 400 MG PO ×5 (09:00→20:54)
[2024-08-19] MEDS: oxyCODONE HCL (*CRX) 2.5 MG TAB IR PO ×3 (09:00→17:41)
[2024-08-19] MEDS: ARTIFICIAL TEARS OPHTH SOLN 15 ML BOTTLE 1 DROP RIGHT EYE ×4 (09:00→20:54)
[2024-08-19] MEDS: predniSONE 20 MG TABLET 40 MG PO (09:01)
[2024-08-19 16:35] VITALS: BP 156/78; PULSE 92; RESP 16; TEMP 36.4; O2SAT 95
[2024-08-19 20:54] VITALS: PULSE 85
[2024-08-19] MEDS: LORATADINE 10 MG TABLET PO (20:54)
[2024-08-19] MEDS: SENNA/DOCUSATE SODIUM TABLET 1 TAB PO (20:54)
[2024-08-19] MEDS: ASPIRIN 81 MG ENTERIC TABLET PO (20:54)
[2024-08-19] MEDS: traMADol HCL (*CRX) 50 MG TABLET PO (21:01)
[2024-08-20] VITALS: BP 165/72; PULSE 85; RESP 14; TEMP 36.4; O2SAT 95
[2024-08-20 08:00] VITALS: BP 149/63; PULSE 74; RESP 14; TEMP 36.5; O2SAT 97
[2024-08-20] MEDS: LIDOCAINE 5% PATCH 1 PATCH TRANSDERM (09:00)
[2024-08-20] MEDS: ARTIFICIAL TEARS OPHTH SOLN 15 ML BOTTLE 1 DROP RIGHT EYE ×4 (09:03→20:41)
[2024-08-20] MEDS: ACYCLOVIR 200 MG CAPSULE 400 MG PO ×5 (09:03→20:41)
[2024-08-20 09:04] VITALS: PULSE 74
[2024-08-20] MEDS: oxyCODONE HCL (*CRX) 2.5 MG TAB IR PO ×3 (09:04→16:00)
[2024-08-20] MEDS: METOPROLOL TARTRATE 12.5 MG TABLET PO ×2 (09:04→20:41)
[2024-08-20 16:00] VITALS: BP 149/70; PULSE 78; RESP 16; TEMP 36.7; O2SAT 96
[2024-08-20] MEDS: ASPIRIN 81 MG ENTERIC TABLET PO (20:40)
[2024-08-20] MEDS: traMADol HCL (*CRX) 50 MG TABLET PO (20:40)
[2024-08-20] MEDS: SENNA/DOCUSATE SODIUM TABLET 1 TAB PO (20:41)
[2024-08-20] MEDS: LORATADINE 10 MG TABLET PO (20:42)
[2024-08-21] VITALS: BP 160/88; PULSE 99; RESP 18; TEMP 36.6; O2SAT 96
[2024-08-21 07:55] VITALS: BP 174/86; PULSE 77; RESP 18; TEMP 36.6; O2SAT 98
[2024-08-21] MEDS: LIDOCAINE 5% PATCH 1 PATCH TRANSDERM (08:32)
[2024-08-21] MEDS: polyethylene glycoL 3350 17 GM POWD.PACK PO (08:33)
[2024-08-21] MEDS: predniSONE 20 MG TABLET 40 MG PO (08:34)
[2024-08-21 08:35] VITALS: PULSE 77
[2024-08-21] MEDS: METOPROLOL TARTRATE 12.5 MG TABLET PO ×2 (08:35→21:34)
[2024-08-21] MEDS: oxyCODONE HCL (*CRX) 2.5 MG TAB IR PO ×3 (08:35→17:15)
[2024-08-21] MEDS: ACYCLOVIR 200 MG CAPSULE 400 MG PO ×5 (08:35→21:35)
[2024-08-21] MEDS: ARTIFICIAL TEARS OPHTH SOLN 15 ML BOTTLE 1 DROP RIGHT EYE ×4 (08:36→21:37)
--- NOTE | 2024-08-21 12:01 | P.PNIM_ITS ---
Progress Note: A&P Assessment and Plan (1) Facial paralysis/[place] palsy: Code(s): G51.0 - Corbin's palsy Status: Acute Assessment and Plan: Patient had new onset right facial drooping appeared consistent with Corbin's palsy however due to patient's age was concerned for possible stroke patient was transferred to [place]; HCT, CTA, MRI of head negative for stroke. Seen by neurology Continue prednisone and acyclovir to complete a course Encouraged her to use the artificial eyes and lubricant May tape eye close at night or when resting (2) Accidental fall: Qualifiers: Encounter type: initial encounter Qualified Code(s): W19.XXXA - Unspecified fall, initial encounter Code(s): W19.XXXA - Unspecified fall, initial encounter Status: Acute Assessment and Plan: Patient reported fall x2 at home with acute pain to right hip with negative trauma workup PT/OT. (3) Acute hip pain: Qualifiers: Laterality: right Qualified Code(s): M25.551 - Pain in right hip Code(s): M25.559 - Pain in unspecified hip Status: Acute Assessment and Plan: Patient has a history of severe osteoarthritis. She states she has RA but don't see any mention of this and exam more consistent with OA. ESR and anti-CCP levels normal recently. Her hip pain probably more likely siatica symptoms from her low back. No acute fracture noted by xray but does show moderate right hip OA. Pain management scheduled oxycodone and PRN breakthrough pain medication Lidocaine patch to left hip PT/OT [facility] (4) Hypertension: Code(s): I10 - Essential (primary) hypertension Status: Acute Assessment and Plan: Patient's blood pressure was reviewed on 08/21 Blood pressure remains mildly elevated for the past few days. Probably related to steroids Will continue to monitor Plan Code status: Full code per patient DVT prophylaxis: SCD's PT/OT notes: PT/OT evaluation Disposition: patient was admitted to [facility] bed for continued rehabilitation will continue with physical and occupational therapy to build endurance and strength plan is to hopefully return home when able to perform her own ADLs and care for self. Subjective Date/time seen: 08/21/24 12:01 Interval history: 89yo with OA and HTN admitted to [facility] for further rehabilitation following hospitalization. Assuming care. Chart reviewed. Patient slept poorly last night. She complains right hip and buttock pain with pain radiating down the lateral aspect her right thigh to the knee. She is having bowel movements. No numbness, tingling or weakness in the lower extremities. No chest pain or shortness of breath. The oxycodone is helpful. She states that she has rheumatoid arthritis for the past 30 years but has not been on any biologics or other anti RA medications. Discussed with dtr at bedside. Dtr is from [place] and is trying to have patient move to [place] to be close to family. Dtr is returning home today. Exam Narrative: AF 97.8 174/86 77 18 98% ra Gen - NARD HEENT - right facial droop Chest - CTA bilaterally, nml RR CV - RRR S1/S2 Abd - Soft, NT/ND, Positive BS Ext - No pedal edema palpable pain right buttock but w/o bruising Neuro - Alert and appropriate. Nonfocal exam. No focal LE weakness. Heberden's nodules noted Psych - Nml mood and affect Skin - Warm and dry Objective Data Vital Signs Vital Signs: Vital Signs - 24 hr 08/20/24 16:00 08/21/24 00:00 08/21/24 07:55 Temperature 98.0 F 97.8 F Pulse Rate 78 99 77 Respiratory Rate 16 18 18 Blood Pressure 149/70 H 160/88 H Pulse Oximetry 96 96 98 Oxygen Delivery Room Air Room Air Room Air 08/21/24 07:55 08/21/24 08:35 Temperature 97.8 F Pulse Rate 77 77 Respiratory Rate 18 Blood Pressure 174/86 H Pulse Oximetry 98 Oxygen Delivery Room Air Intake/Output Intake/Output: Intake & Output 08/18/24 08/19/24 08/20/24 08/21/24 23:59 23:59 23:59 23:59 Intake Total 1050 1610 625 650 Output Total 650 250 Balance 400 1360 625 650 Meds/Results Medications: Active Medications Generic Name Dose Route Start Last Admin Trade Name Freq PRN Reason Stop Dose Admin Acetaminophen 650 mg 08/17/24 19:24 Acetaminophen 325 Mg Tablet PO Q6H PRN Mild Pain (1-3) or Fever Acyclovir 400 mg 08/17/24 21:00 08/21/24 08:35 Acyclovir 200 Mg Capsule PO 08/24/24 21:01 400 mg 5 TIMES DAILY RAMSES Administration Artificial Tears 1 drop 08/17/24 21:00 08/21/24 08:36 Artificial Tears Ophth Soln 15 Ml Bottle RIGHT EYE 1 drop QID [facility] Administration Aspirin 81 mg 08/17/24 21:00 08/20/24 20:40 Aspirin 81 Mg Enteric Tablet PO 81 mg HS [facility] Administration Buspirone HCl 5 mg 08/17/24 19:22 Buspirone Hcl 5 Mg Tablet PO Q12H PRN anxiety Cyclobenzaprine HCl 5 mg 08/19/24 11:18 Cyclobenzaprine Hcl 5 Mg Tablet PO Q8H PRN Muscle Spasm Lidocaine 1 patch 08/18/24 09:00 08/21/24 08:32 Lidocaine 5% Patch TRANSDERM 1 patch DAILY [facility] Administration Loratadine 10 mg 08/18/24 21:00 08/20/24 20:42 Loratadine 10 Mg Tablet PO 10 mg QHS [facility] Administration Metoprolol Tartrate 12.5 mg 08/18/24 09:00 08/21/24 08:35 Metoprolol Tartrate 12.5 Mg Tablet PO 12.5 mg Q12HR [facility] Administration Mineral Oil/Petrolatum/Glycerin 1 applic 08/17/24 21:00 08/20/24 20:42 Mineral Oil/Petrolatum Ophth Oint 3.5 Gm (Eye Lubricant) RIGHT EYE Not Given HS [facility] Ondansetron HCl 4 mg 08/17/24 19:24 Ondansetron Hcl Odt 4 Mg Tablet PO Q6H PRN Nausea And Vomiting Oxycodone HCl 2.5 mg 08/18/24 09:00 08/21/24 08:35 Oxycodone Hcl (*Crx) 2.5 Mg Tab Ir PO 2.5 mg TID [facility] Administration Polyethylene Glycol 17 gm 08/18/24 09:00 08/21/24 08:33 Polyethylene Glycol 3350 17 Gm Powd.Pack PO 17 gm QAM [facility] Administration Prednisone 40 mg 08/19/24 08:00 08/21/24 08:34 Prednisone 20 Mg Tablet PO 08/23/24 08:01 40 mg DAILY@0800 [facility] Administration Prednisone 20 mg 08/24/24 08:00 Prednisone 20 Mg Tablet PO 08/28/24 08:01 DAILY@0800 [facility] Prednisone 10 mg 08/29/24 08:00 Prednisone 10 Mg Tablet PO 09/02/24 08:01 DAILY@0800 RAMSES Senna/Docusate Sodium 1 tab 08/17/24 21:00 08/20/24 20:41 Senna/Docusate Sodium Tablet PO 1 tab HS RAMSES Administration Tramadol HCl 50 mg 08/17/24 19:24 08/20/24 20:40 Tramadol Hcl (*Crx) 50 Mg Tablet PO 50 mg Q6H PRN Administration Pain Rated 4-6
[2024-08-21 16:00] VITALS: BP 150/74; PULSE 73; RESP 16; TEMP 37.1; O2SAT 94
[2024-08-21 20:00] VITALS: PULSE 73; RESP 16; O2SAT 94
[2024-08-21 21:34] VITALS: PULSE 105
[2024-08-21] MEDS: ASPIRIN 81 MG ENTERIC TABLET PO (21:34)
[2024-08-21] MEDS: traMADol HCL (*CRX) 50 MG TABLET PO (21:35)
[2024-08-21] MEDS: LORATADINE 10 MG TABLET PO (21:36)
[2024-08-21] MEDS: SENNA/DOCUSATE SODIUM TABLET 1 TAB PO (21:36)
[2024-08-21] MEDS: MINERAL OIL/PETROLATUM OPHTH OINT 3.5 GM (EYE LUBRICANT) 1 APPLIC RIGHT EYE (21:37)
[2024-08-22] VITALS: BP 142/56; PULSE 75; RESP 16; TEMP 37.2; O2SAT 95
[2024-08-22 07:47] VITALS: BP 149/72; PULSE 84; RESP 16; TEMP 36.6; O2SAT 97
[2024-08-22] MEDS: LIDOCAINE 5% PATCH 1 PATCH TRANSDERM (08:22)
[2024-08-22] MEDS: ACYCLOVIR 200 MG CAPSULE 400 MG PO ×5 (08:23→20:30)
[2024-08-22] MEDS: oxyCODONE HCL (*CRX) 2.5 MG TAB IR PO ×3 (08:24→17:55)
[2024-08-22 08:25] VITALS: PULSE 84
[2024-08-22] MEDS: predniSONE 20 MG TABLET 40 MG PO (08:25)
[2024-08-22] MEDS: METOPROLOL TARTRATE 12.5 MG TABLET PO ×2 (08:25→20:30)
[2024-08-22] MEDS: polyethylene glycoL 3350 17 GM POWD.PACK PO (08:25)
[2024-08-22] MEDS: ARTIFICIAL TEARS OPHTH SOLN 15 ML BOTTLE 1 DROP RIGHT EYE ×4 (08:26→20:31)
[2024-08-22 16:00] VITALS: BP 175/79; PULSE 98; RESP 18; TEMP 36.7; O2SAT 96
[2024-08-22 20:30] VITALS: PULSE 87
[2024-08-22] MEDS: traMADol HCL (*CRX) 50 MG TABLET PO (20:31)
[2024-08-22] MEDS: MINERAL OIL/PETROLATUM OPHTH OINT 3.5 GM (EYE LUBRICANT) 1 APPLIC RIGHT EYE (20:31)
[2024-08-22] MEDS: LORATADINE 10 MG TABLET PO (20:31)
[2024-08-22] MEDS: SENNA/DOCUSATE SODIUM TABLET 1 TAB PO (20:31)
[2024-08-22] MEDS: ASPIRIN 81 MG ENTERIC TABLET PO (20:31)
[2024-08-23] VITALS: BP 161/70; PULSE 87; RESP 16; TEMP 36.6; O2SAT 96
[2024-08-23 08:00] VITALS: BP 116/72; PULSE 82; RESP 14; TEMP 36.4; O2SAT 97
[2024-08-23 09:23] VITALS: PULSE 82
[2024-08-23] MEDS: METOPROLOL TARTRATE 12.5 MG TABLET PO ×2 (09:23→21:26)
[2024-08-23] MEDS: ACYCLOVIR 200 MG CAPSULE 400 MG PO ×5 (09:23→21:28)
[2024-08-23] MEDS: predniSONE 20 MG TABLET 40 MG PO (09:23)
[2024-08-23] MEDS: oxyCODONE HCL (*CRX) 2.5 MG TAB IR PO ×3 (09:24→18:09)
[2024-08-23] MEDS: LIDOCAINE 5% PATCH 1 PATCH TRANSDERM (09:24)
[2024-08-23] MEDS: ARTIFICIAL TEARS OPHTH SOLN 15 ML BOTTLE 1 DROP RIGHT EYE ×4 (09:25→21:26)
[2024-08-23 15:59] VITALS: BP 178/76; PULSE 83; RESP 17; TEMP 36.6; O2SAT 96
[2024-08-23 21:26] VITALS: PULSE 100
[2024-08-23] MEDS: MINERAL OIL/PETROLATUM OPHTH OINT 3.5 GM (EYE LUBRICANT) 1 APPLIC RIGHT EYE (21:26)
[2024-08-23] MEDS: ASPIRIN 81 MG ENTERIC TABLET PO (21:28)
[2024-08-23] MEDS: SENNA/DOCUSATE SODIUM TABLET 1 TAB PO (21:28)
[2024-08-23] MEDS: LORATADINE 10 MG TABLET PO (21:28)
[2024-08-23] MEDS: traMADol HCL (*CRX) 50 MG TABLET PO (21:28)
[2024-08-24] VITALS: BP 184/86; PULSE 100; RESP 18; TEMP 36.7; O2SAT 95
[2024-08-24 08:00] VITALS: BP 138/67; PULSE 86; RESP 14; TEMP 36.5; O2SAT 97
[2024-08-24] MEDS: LIDOCAINE 5% PATCH 1 PATCH TRANSDERM (09:08)
[2024-08-24 09:09] VITALS: PULSE 86
[2024-08-24] MEDS: ACYCLOVIR 200 MG CAPSULE 400 MG PO ×5 (09:09→21:02)
[2024-08-24] MEDS: METOPROLOL TARTRATE 12.5 MG TABLET PO ×2 (09:09→21:02)
[2024-08-24] MEDS: predniSONE 20 MG TABLET PO (09:09)
[2024-08-24] MEDS: oxyCODONE HCL (*CRX) 2.5 MG TAB IR PO ×3 (09:09→18:30)
[2024-08-24] MEDS: ARTIFICIAL TEARS OPHTH SOLN 15 ML BOTTLE 1 DROP RIGHT EYE ×4 (09:10→21:01)
[2024-08-24 15:30] VITALS: BP 180/92; PULSE 90; RESP 18; TEMP 36.7; O2SAT 94
[2024-08-24] MEDS: traMADol HCL (*CRX) 50 MG TABLET PO (21:01)
[2024-08-24] MEDS: SENNA/DOCUSATE SODIUM TABLET 1 TAB PO (21:01)
[2024-08-24] MEDS: MINERAL OIL/PETROLATUM OPHTH OINT 3.5 GM (EYE LUBRICANT) 1 APPLIC RIGHT EYE (21:01)
[2024-08-24 21:02] VITALS: PULSE 110
[2024-08-24] MEDS: ASPIRIN 81 MG ENTERIC TABLET PO (21:02)
[2024-08-24] MEDS: LORATADINE 10 MG TABLET PO (21:02)
[2024-08-25] VITALS: BP 188/89; PULSE 110; RESP 18; TEMP 36.7; O2SAT 95
[2024-08-25 07:01] LABS: Hematocrit 38.6 % (35.0-42.0); Hemoglobin 12.1 g/dL (11.7-13.8); Mean Corpuscular HGB Conc 31.3 g/dL (32-36); Mean Corpuscular Hemoglobin 27.9 pg (27.0-31.0); Mean Corpuscular Volume 89.1 fL (78.0-102.0); Mean Platelet Volume 9.5 fl (9.2-11.8); Platelet Count Result 470 K/mm3 (150-420); Red Blood Count 4.33 M/mm3 (4.20-5.40); Red Cell Distribution Width 14.5 % (11.6-14.4); White Blood Count 14.7 K/mm3 (4.8-10.8)
[2024-08-25 08:00] VITALS: BP 124/68; PULSE 94; RESP 14; TEMP 36.6; O2SAT 97
[2024-08-25] MEDS: ARTIFICIAL TEARS OPHTH SOLN 15 ML BOTTLE 1 DROP RIGHT EYE ×2 (09:17→20:10)
[2024-08-25] MEDS: LIDOCAINE 5% PATCH 1 PATCH TRANSDERM (09:17)
[2024-08-25] MEDS: predniSONE 20 MG TABLET PO (09:17)
[2024-08-25 09:18] VITALS: PULSE 78
[2024-08-25] MEDS: oxyCODONE HCL (*CRX) 2.5 MG TAB IR PO ×3 (09:18→17:03)
[2024-08-25] MEDS: METOPROLOL TARTRATE 12.5 MG TABLET PO ×2 (09:18→20:10)
[2024-08-25 09:47] LABS: Alanine Aminotransferase 13 U/L (6-35); Albumin Level 3.2 g/dL (3.5-5.1); Alkaline Phosphatase 84 U/L (38-126); Anion Gap 2 mmol/L (4-12); Aspartate Amino Transferase 25 U/L (14-36); Bilirubin,Total 0.5 mg/dL (0.2-1.3); Blood Urea Nitrogen 13 mg/dL (7-17); Calcium 8.4 mg/dL (8.4-10.2); Carbon Dioxide 30 mmol/L (22-30); Chloride 101 mmol/L (98-107); Estimated CRCL calculation 45 ml/min; Estimated Glomerular Filt Rate > 60; Glucose 120 mg/dL (65-110); Osmolality Calculated 277 mOsm/kg (285-295); Potassium 3.8 mmol/L (3.4-5.0); Sodium 133 mmol/L (137-145); Total Protein 6.4 g/dL (6.3-8.2)
[2024-08-25 16:00] VITALS: BP 156/79; PULSE 96; RESP 18; TEMP 36.9; O2SAT 96
[2024-08-25 20:00] VITALS: PULSE 83; RESP 18; O2SAT 96
[2024-08-25 20:10] VITALS: PULSE 83
[2024-08-25] MEDS: ASPIRIN 81 MG ENTERIC TABLET PO (20:10)
[2024-08-25] MEDS: SENNA/DOCUSATE SODIUM TABLET 1 TAB PO (20:11)
[2024-08-25] MEDS: busPIRone HCL 5 MG TABLET PO (20:11)
[2024-08-25] MEDS: LORATADINE 10 MG TABLET PO (20:11)
[2024-08-25] MEDS: traMADol HCL (*CRX) 50 MG TABLET PO (21:21)
[2024-08-25] MEDS: MINERAL OIL/PETROLATUM OPHTH OINT 3.5 GM (EYE LUBRICANT) 1 APPLIC RIGHT EYE (21:21)
[2024-08-26] VITALS (7 sets, daily range): BP systolic 147–169; BP diastolic 55–84; PULSE 82–93; RESP 16–18; TEMP 36.1–36.6; O2SAT 96–97
[2024-08-26] MEDS: oxyCODONE HCL (*CRX) 2.5 MG TAB IR PO ×3 (09:28→18:01)
[2024-08-26] MEDS: LIDOCAINE 5% PATCH 1 PATCH TRANSDERM (09:28)
[2024-08-26] MEDS: METOPROLOL TARTRATE 12.5 MG TABLET PO ×2 (09:28→21:12)
[2024-08-26] MEDS: predniSONE 20 MG TABLET PO (09:28)
[2024-08-26] MEDS: ARTIFICIAL TEARS OPHTH SOLN 15 ML BOTTLE 1 DROP RIGHT EYE ×4 (09:29→21:15)
[2024-08-26] MEDS: busPIRone HCL 5 MG TABLET PO ×2 (09:29→21:11)
[2024-08-26] MEDS: CYCLOBENZAPRINE HCL 5 MG TABLET PO (09:32)
--- NOTE | 2024-08-26 10:46 | P.PNIM_ITS ---
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 Seen by neurology Continue prednisone to complete a course; completed acyclovir Congratulated her for using the artificial eyes and lubricant Continue to tape eye close at night or when resting (2) Accidental fall: Qualifiers: Encounter type: initial encounter Qualified Code(s): W19.XXXA - Unspecified fall, initial encounter Code(s): W19.XXXA - Unspecified fall, initial encounter Status: Acute Assessment and Plan: Patient reported fall x2 at home with acute pain to right hip with negative trauma workup Pain is still persistent. Will check CT right hip to exclude an occult fracture. PT/OT. (3) Acute hip pain: Qualifiers: Laterality: right Qualified Code(s): M25.551 - Pain in right hip Code(s): M25.559 - Pain in unspecified hip Status: Acute Assessment and Plan: Patient has a history of severe osteoarthritis. She states she has RA but don't see any mention of this and exam more consistent with OA. ESR and anti-CCP levels normal recently. No acute fracture noted by xray but does show moderate right hip OA. Pain management scheduled oxycodone and PRN breakthrough pain medication Lidocaine patch Check CT hip PT/OT Swing Bed (4) Hypertension: Code(s): I10 - Essential (primary) hypertension Status: Acute Assessment and Plan: Patient's blood pressure was reviewed on 08/26 Blood pressure is mildly elevated at times but better trend overall Probably related to steroids that is improving with taper Will continue to monitor Plan Code status: Full code DVT prophylaxis: SCD's Disposition: patient was admitted to [facility] bed for continued rehabilitation will continue with physical and occupational therapy to build endurance and strength plan is to hopefully return home when able to perform her own ADLs and care for self. Subjective Date/time seen: 08/26/24 10:46 Interval history: 89yo with OA and HTN admitted to [facility] for further rehabilitation following hospitalization. Patient still with right hip pain and having difficulty walking. Only walking in the room. She feels she is not progressing and feels depressed about things. The pain medications take the edge off the pain. No constipation. Using the eye lubricant nightly. No odynophagia or dysphagia. Exam Narrative: AF 97 148/84 85 16 97% ra Gen - NARD HEENT - right facial droop Chest - CTA bilaterally, nml RR CV - RRR S1/S2 Abd - Soft, NT/ND, Positive BS Ext - No pedal edema palpable Neuro - Alert and appropriate. Psych - Nml mood and affect Skin - Warm and dry Objective Data Vital Signs Vital Signs: Vital Signs - 24 hr 08/25/24 16:00 08/25/24 20:00 08/25/24 20:10 Temperature 98.4 F Pulse Rate 96 83 83 Respiratory Rate 18 18 Blood Pressure 156/79 H Pulse Oximetry 96 96 Oxygen Delivery Room Air Room Air 08/26/24 00:00 08/26/24 07:45 08/26/24 08:35 Temperature 97.9 F 97 F L Pulse Rate 82 85 85 Respiratory Rate 16 16 16 Blood Pressure 147/55 H 148/84 H Pulse Oximetry 96 97 97 Oxygen Delivery Room Air Room Air Room Air 08/26/24 09:28 Temperature Pulse Rate 85 Respiratory Rate Blood Pressure Pulse Oximetry Oxygen Delivery Intake/Output Intake/Output: Intake & Output 08/23/24 08/24/24 08/25/24 08/26/24 23:59 23:59 23:59 23:59 Intake Total 1540 1785 1490 340 Output Total 600 Balance 1540 1185 1490 340 Meds/Results Medications: Active Medications Generic Name Dose Route Start Last Admin Trade Name Freq PRN Reason Stop Dose Admin Acetaminophen 650 mg 08/17/24 19:24 Acetaminophen 325 Mg Tablet PO Q6H PRN Mild Pain (1-3) or Fever Artificial Tears 1 drop 08/17/24 21:00 08/26/24 09:29 Artificial Tears Ophth Soln 15 Ml Bottle RIGHT EYE 1 drop QID RAMSES Administration Aspirin 81 mg 08/17/24 21:00 08/25/24 20:10 Aspirin 81 Mg Enteric Tablet PO 81 mg HS RAMSES Administration Buspirone HCl 5 mg 08/25/24 21:00 08/26/24 09:29 Buspirone Hcl 5 Mg Tablet PO 5 mg Q12HR RAMSES Administration Cyclobenzaprine HCl 5 mg 08/19/24 11:18 08/26/24 09:32 Cyclobenzaprine Hcl 5 Mg Tablet PO 5 mg Q8H PRN Administration Muscle Spasm Lidocaine 1 patch 08/18/24 09:00 08/26/24 09:28 Lidocaine 5% Patch TRANSDERM 1 patch DAILY RAMSES Administration Loratadine 10 mg 08/18/24 21:00 08/25/24 20:11 Loratadine 10 Mg Tablet PO 10 mg QHS [facility] Administration Metoprolol Tartrate 12.5 mg 08/18/24 09:00 08/26/24 09:28 Metoprolol Tartrate 12.5 Mg Tablet PO 12.5 mg Q12HR [facility] Administration Mineral Oil/Petrolatum/Glycerin 1 applic 08/17/24 21:00 08/25/24 21:21 Mineral Oil/Petrolatum Ophth Oint 3.5 Gm (Eye Lubricant) RIGHT EYE 1 applic HS [facility] Administration Ondansetron HCl 4 mg 08/17/24 19:24 Ondansetron Hcl Odt 4 Mg Tablet PO Q6H PRN Nausea And Vomiting Oxycodone HCl 2.5 mg 08/18/24 09:00 08/26/24 09:28 Oxycodone Hcl (*Crx) 2.5 Mg Tab Ir PO 2.5 mg TID [facility] Administration Polyethylene Glycol 17 gm 08/18/24 09:00 08/26/24 09:29 Polyethylene Glycol 3350 17 Gm Powd.Pack PO Not Given QAM [facility] Prednisone 20 mg 08/24/24 08:00 08/26/24 09:28 Prednisone 20 Mg Tablet PO 08/28/24 08:01 20 mg DAILY@0800 [facility] Administration Prednisone 10 mg 08/29/24 08:00 Prednisone 10 Mg Tablet PO 09/02/24 08:01 DAILY@0800 [facility] Senna/Docusate Sodium 1 tab 08/17/24 21:00 08/25/24 20:11 Senna/Docusate Sodium Tablet PO 1 tab HS [facility] Administration Tramadol HCl 50 mg 08/17/24 19:24 08/25/24 21:21 Tramadol Hcl (*Crx) 50 Mg Tablet PO 50 mg Q6H PRN Administration Pain Rated 4-6
[2024-08-26] MEDS: SENNA/DOCUSATE SODIUM TABLET 1 TAB PO (21:11)
[2024-08-26] MEDS: LORATADINE 10 MG TABLET PO (21:11)
[2024-08-26] MEDS: ASPIRIN 81 MG ENTERIC TABLET PO (21:11)
[2024-08-26] MEDS: traMADol HCL (*CRX) 50 MG TABLET PO (21:12)
[2024-08-26] MEDS: MINERAL OIL/PETROLATUM OPHTH OINT 3.5 GM (EYE LUBRICANT) 1 APPLIC RIGHT EYE (21:15)
[2024-08-27] VITALS: BP 150/63; PULSE 93; RESP 16; TEMP 36.6; O2SAT 96
[2024-08-27 08:00] VITALS: BP 137/66; PULSE 89; RESP 20; TEMP 36.6; O2SAT 95
[2024-08-27 08:49] VITALS: PULSE 112
[2024-08-27] MEDS: oxyCODONE HCL (*CRX) 2.5 MG TAB IR PO ×3 (08:49→17:13)
[2024-08-27] MEDS: METOPROLOL TARTRATE 12.5 MG TABLET PO ×2 (08:49→21:00)
[2024-08-27] MEDS: LIDOCAINE 5% PATCH 1 PATCH TRANSDERM (08:50)
[2024-08-27] MEDS: ARTIFICIAL TEARS OPHTH SOLN 15 ML BOTTLE 1 DROP RIGHT EYE ×4 (08:50→21:01)
[2024-08-27] MEDS: busPIRone HCL 5 MG TABLET PO ×2 (08:50→21:01)
[2024-08-27] MEDS: predniSONE 20 MG TABLET PO (08:50)
[2024-08-27] MEDS: traMADol HCL (*CRX) 50 MG TABLET PO ×2 (15:29→21:00)
[2024-08-27 16:00] VITALS: BP 143/62; PULSE 87; RESP 18; TEMP 36.8; O2SAT 96
[2024-08-27 21:00] VITALS: PULSE 83
[2024-08-27] MEDS: ASPIRIN 81 MG ENTERIC TABLET PO (21:00)
[2024-08-27] MEDS: CYCLOBENZAPRINE HCL 5 MG TABLET PO (21:00)
[2024-08-27] MEDS: SENNA/DOCUSATE SODIUM TABLET 1 TAB PO (21:00)
[2024-08-27] MEDS: LORATADINE 10 MG TABLET PO (21:01)
[2024-08-27] MEDS: MINERAL OIL/PETROLATUM OPHTH OINT 3.5 GM (EYE LUBRICANT) 1 APPLIC RIGHT EYE (21:01)
[2024-08-28] VITALS: BP 143/80; PULSE 83; RESP 16; TEMP 36.8; O2SAT 98
[2024-08-28 07:40] VITALS: BP 159/70; PULSE 84; RESP 16; TEMP 36.6; O2SAT 97
[2024-08-28 08:25] VITALS: PULSE 84; RESP 16; O2SAT 97
[2024-08-28] MEDS: oxyCODONE HCL (*CRX) 2.5 MG TAB IR PO ×3 (09:34→17:30)
[2024-08-28] MEDS: predniSONE 20 MG TABLET PO (09:34)
[2024-08-28] MEDS: busPIRone HCL 5 MG TABLET PO (09:34)
[2024-08-28 09:35] VITALS: PULSE 84
[2024-08-28] MEDS: ARTIFICIAL TEARS OPHTH SOLN 15 ML BOTTLE 1 DROP RIGHT EYE ×3 (09:35→17:30)
[2024-08-28] MEDS: METOPROLOL TARTRATE 12.5 MG TABLET PO (09:35)
--- NOTE | 2024-08-28 10:24 | PC.NURSE ---
Patient take down to MRI via wheelchair by technician support association.
--- NOTE | 2024-08-28 11:30 | PC.NURSE ---
Patient brought back from MRI, assisted back to bed with 1 ast and walker. Resting in bed with hob elevated. BLE elevated. Call light and belongings provided.
[2024-08-28 16:30] VITALS: BP 154/62; PULSE 79; RESP 16; TEMP 36.8; O2SAT 97
--- NOTE | 2024-08-28 18:14 | PM.TDS ---
Transfer Discharge Sum: Prov Provider Date of admission: 08/17/24 17:04 Primary care physician: John Lopez MD Admitting clinician: Luis E Caro MD Attending physician on admission: Luis E Caro Attending physician on discharge: Luis E Caro Discharging clinician: Enriqueta Little Anticipated date of transfer: 08/28/24 DS: Admitting Diagnosis Discharge Date 08/28/2024 Admitting Diagnosis Rehab for physical deconditioned/Corbin's Palsy/OA/RA DS: Discharge Diagnosis Discharge Diagnosis (1) Accidental fall: Qualifiers: Encounter type: initial encounter Qualified Code(s): W19.XXXA - Unspecified fall, initial encounter Code(s): W19.XXXA - Unspecified fall, initial encounter Status: Acute (2) Acute hip pain: Qualifiers: Laterality: right Qualified Code(s): M25.551 - Pain in right hip Code(s): M25.559 - Pain in unspecified hip Status: Acute (3) Right femoral fracture: Code(s): S72.91XA - Unspecified fracture of right femur, initial encounter for closed fracture Status: Acute (4) Osteoarthritis: Code(s): M19.90 - Unspecified osteoarthritis, unspecified site Status: Acute Transfer Discharge Sum: Med Medications Active and Home Medications: Home Medications buspirone 5 mg tablet 5 mg PO BID PRN anxiety 08/13/24 [History Confirmed 08/17/24] acetaminophen 500 mg capsule 1,000 mg PO BID PRN pain 08/14/24 [History Confirmed 08/17/24] aspirin 81 mg tablet,delayed release 81 mg PO HS 08/14/24 [History Confirmed 08/17/24] calcium 600 mg-D3 20 mcg-magnesium 50 fx-Lk-jbvlpr-vonnie-boron tablet 1 tablet PO .am 08/14/24 [History Confirmed 08/17/24] acyclovir 400 mg tablet 400 mg PO 5 TIMES DAILY #2 tabs 08/17/24 [Rx Confirmed 08/17/24] lidocaine 5 % topical patch (Lidoderm) 1 patch transdermal DAILY #1 ea 08/17/24 [Rx Confirmed 08/17/24] metoprolol tartrate 25 mg tablet 12.5 mg (1/2 x 25 mg) PO DAILY #30 tabs 08/17/24 [Rx Confirmed 08/17/24] peg [id number]-ypveyetv 1 %-0.2 %-0.2 % eye drops (Artificial Tears ([id number])) 1 drp RIGHT EYE QID #1 mL 08/17/24 [Rx Confirmed 08/17/24] prednisone 20 mg tablet 60 mg (3 x 20 mg) PO DAILY@0800 #12 tabs 08/17/24 [Rx Confirmed 08/17/24] white petrolatum-mineral oil 83 %-15 % eye ointment (Lubrifresh PM) 1 applic RIGHT EYE HS #1 g 08/17/24 [Rx Confirmed 08/17/24] Active Medications Acetaminophen (Acetaminophen 325 Mg Tablet) 650 mg PO Q6H PRN PRN Reason: Mild Pain (1-3) or Fever Artificial Tears (Artificial Tears Ophth Soln 15 Ml Bottle) 1 drop RIGHT EYE QID [facility] Last Admin: 08/28/24 17:30 Dose: 1 drop Aspirin (Aspirin 81 Mg Enteric Tablet) 81 mg PO [facility] Last Admin: 08/27/24 21:00 Dose: 81 mg Buspirone HCl (Buspirone Hcl 5 Mg Tablet) 5 mg PO Q12HR [facility] Last Admin: 08/28/24 09:34 Dose: 5 mg Cyclobenzaprine HCl (Cyclobenzaprine Hcl 5 Mg Tablet) 5 mg PO Q8H PRN PRN Reason: Muscle Spasm Last Admin: 08/27/24 21:00 Dose: 5 mg Lidocaine (Lidocaine 5% Patch) 1 patch TRANSDERM DAILY [facility] Last Admin: 08/28/24 10:30 Dose: Not Given Loratadine (Loratadine 10 Mg Tablet) 10 mg PO QHS [facility] Last Admin: 08/27/24 21:01 Dose: 10 mg Metoprolol Tartrate (Metoprolol Tartrate 12.5 Mg Tablet) 12.5 mg PO Q12HR [facility] Last Admin: 08/28/24 09:35 Dose: 12.5 mg Mineral Oil/Petrolatum/Glycerin (Mineral Oil/Petrolatum Ophth Oint 3.5 Gm (Eye Lubricant)) 1 applic RIGHT EYE HS [facility] Last Admin: 08/27/24 21:01 Dose: 1 applic Ondansetron HCl (Ondansetron Hcl Odt 4 Mg Tablet) 4 mg PO Q6H PRN PRN Reason: Nausea And Vomiting Oxycodone HCl (Oxycodone Hcl (*Crx) 2.5 Mg Tab Ir) 2.5 mg PO TID [facility] Last Admin: 08/28/24 17:30 Dose: 2.5 mg Polyethylene Glycol (Polyethylene Glycol 3350 17 Gm Powd.Pack) 17 gm PO QAM [facility] Last Admin: 08/28/24 09:35 Dose: Not Given Prednisone (Prednisone 10 Mg Tablet) 10 mg PO DAILY@0800 [facility] Stop: 09/02/24 08:01 Senna/Docusate Sodium (Senna/Docusate Sodium Tablet) 1 tab PO HS [facility] Last Admin: 08/27/24 21:00 Dose: 1 tab Tramadol HCl (Tramadol Hcl (*Crx) 50 Mg Tablet) 50 mg PO Q6H PRN PRN Reason: Pain Rated 4-6 Last Admin: 08/27/24 21:00 Dose: 50 mg Transfer Discharge Sum: Hosp Hospital Course Hospital course: Jaqueline Verma is a 89 year old female who had presented to [facility] emergency room initially back on 08/13/2024 after a fall at home with right hip pain. Patient is somewhat confused on events leading up to her arrival to ER. per patient Sunday morning she had fallen and called a friend who called EMS for an assist up but did not seek medical attention Sunday when she was walking with her walker from the bathroom patient states she fell again at that time she denied dizziness, chest pain, shortness a breath but did not recall certain events during those episodes she did not have loss of bowel or stool. after speaking with her daughter who requested she contact her primary care physician patient's primary requested patient go to the emergency room for evaluation. per daughter she spoke with her mother on Sunday08/10/2024 and she sounded herself on the telephone however when she spoke to her mom Sunday night she had some intermittent confusion states something just felt off. patient is past medical history osteoarthritis and hypertension. patient was evaluated in the emergency department trauma workup was negative for acute fracture on 08/13/2024, but patient was immobile due to severe pain she was admitted to the medical unit for further pain management and evaluation by PT OT. upon my assessment of patient following day at [facility] as we were reviewing history of events and past medical history patient reported not feeling well and reported nausea at which time I saw left facial drooping and patient stating she felt funny strength to upper and lower extremities bilateral were equal she was still able to follow commands no visual changes no slurred speech. At that time a code stroke was called and patient was taken down for a stat CT head which showed no acute intracranial process and age-related changes consistent with chronic small-vessel ischemic disease. CTA was negative for any occlusions, patient with continued left facial drop CVA vs corbin's palsey no previous history of either. Patient was then transferred to [facility] for further evaluation with MRI, ECHO and neurology consult. Patient admitted to the medical unit at [facility] on cardiac monitoring underwent brain MRI and brainstem which showed no acute abnormalities, echocardiogram with no significant findings or shunting and evaluated by Neurology who also agreed. 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 a speech eval was also completed with no risk of aspiration. Per PT and OT evaluation recommended long-term facility/ swing for continued rehab patient and family both agreed to [facility] swing bed at which time patient was then discharged for further rehabilitation prior to returning home. Patient was admitted to [facility] swing bed for continued therapy and rehab however patient continued to have worsening right sided hip pain and was not progressing with therapy and pain and ambulation was worsening. Patient had a MRI done that showed a right femoral neck fracture with follow-up imaging. Spoke with patient and daughter who agreed to surgical intervention for repair. Spoke with Dr. Taveras and orthopedics Dr. Valles after review of imaging and both accepted patient for transfer. Patient was transferred for plans for surgery following day. Time Spent with Patient Time attestation: Total time spent providing and/or coordinating transfer services: Total time spent: Greater than 30 minutes Exam Narrative: AF 97 148/84 85 16 97% ra Gen - NARD HEENT - right facial droop Chest - CTA bilaterally, nml RR CV - RRR S1/S2 Abd - Soft, NT/ND, Positive BS Ext - No pedal edema palpable, right hip pain with ambulation Neuro - Alert and appropriate. Psych - Nml mood and affect Skin - Warm and dry DS: Data Imaging Radiologist's impression: XR hip BI 2V w AP pelvis Ordering provider: Enriqueta Little APRN History: . Fracture of the proximal right femoral neck . Comparison: None. FINDINGS: BONES: Fracture of the right femoral neck. HIP JOINT SPACES: Left hip arthroplasty. Severe right hip osteoarthritic changes. SACROILIAC JOINT SPACES/LUMBAR SPINE: The sacroiliac joint spaces are normal. Mild degenerative changes of the visualized lower lumbar spine. PUBIC SYMPHYSIS: Pubic symphysitis. SOFT TISSUES: Normal. IMPRESSION: Fracture right femoral neck.
--- NOTE | 2024-08-28 18:50 | PC.NURSE ---
Report called to [facility] [place] in [place].
--- NOTE | 2024-08-28 19:38 | PC.NURSE ---
[facility] in building to transfer patient to [facility] room 321 bed 2. Receiving hospital previously given report by day shift nurse. Patient belongings given to EMS staff. Daughter Darcy made aware.
== END 2024-08-28 19:38 | disposition short-term general hospital (02) | DRG 536 ==
PROVIDERS: Nurse Practitioner Family; Admitting Provider Internal Medicine; PCP Internal Medicine; Visit Provider Internal Medicine
DX: S72.001A Fracture of unspecified part of neck of right femur, initial encounter for closed fracture (principal); M25.551 Pain in right hip; G51.0 Bell's palsy; I10 Essential (primary) hypertension; M19.90 Unspecified osteoarthritis, unspecified site; W19.XXXD Unspecified fall, subsequent encounter; Z96.642 Presence of left artificial hip joint; Z91.81 History of falling; Z79.82 Long term (current) use of aspirin
CPT/HCPCS: 36415; 72158; 73521; 73723; 80053; 85027; 97110; 97161; 97165; 97530; 97535; A9270; A9579; J7512

== ENCOUNTER 2024-08-28 16:04 | Inpatient (IN) | payer MEDICARE, SELFPAY ==
--- NOTE | ~2024-08-28 | XR_ITS ---
EXAMINATION: XR hip RT min 2V DATE: 08/29/2024 14:55 INDICATION: Right hip fracture post bipolar type right hip hemiarthroplasty status post bipolar type right hip hemiarthroplasty TECHNIQUE: Anteroposterior and crosstable lateral views of the right hip were obtained. COMPARISON: 08/28/2024 FINDINGS: Interval resection of the fractured right femoral head and neck and placement of a noncemented bipola r type right hip hemiarthroplasty which is in near-anatomic alignment. No new fractures identified. E xpected postoperative soft tissue gas at the operative bed. Surgical clip in the pelvis. Mild lumbar spondylosis. IMPRESSION: 1. Expected appearance of a newly placed bipolar type right hip hemiarthroplasty, negative for postop erative purposes. Reviewed, dictated and finalized at location B. IMPRESSION: 1. Expected appearance of a newly placed bipolar type right hip hemiarthroplast y, negative for postoperative purposes.
--- OUTSIDE RECORDS SUMMARY | 2024-08-28 20:31 | XMS_ITS | Clinical Summary ---
Author Organization [facility] Address [facility] [place] [address] Care Team Providers Care Allocations Clerk Name Role Phone John Lopez MD Primary Care Provider [phone] Genevieve Mccray MD Unavailable [phone] Allergies No known active allergies Medications Multiple Vitamin (DAILY VITAMINS) Tab Take 1 tablet by mouth daily. 01/29/2014 Active calcium carbonate-vitami n D (OSCAL + D) 500-5 MG-MCG Tab Take 1 tablet by mouth daily. 01/29/2014 Active vitamin E 400 UNIT capsule Take 1 tablet by mouth daily. 01/29/2014 Active aspirin 81 MG chewable tablet Chew 1 tablet (81 mg total) by mouth daily. 07/30/2017 Active acetaminophen 500 MG tablet Take 1 tablet (500 mg total) by mouth every 6 (six) hours as needed. 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[facility]) 07/12/2016 Resolved Problems Problem Noted Date Diagnosed Date Resolved Date Hip fracture, left ([facility]) 05/29/2017 06/01/2017 Immunizations Immunization Administration Dates Next Due Fluzone High Dose - >Age 65 (Prefilled Syringe) 12/07/2016,12/07/2015,12/09/2014,2013 Influenza Adult (Generic) 12/15/2019,12/06/2017 Pneumococcal (Pneumovax 23) 01/12/2014 Family History Medical History Relation Comments OR Father Stroke Father Relation Status Comments Father (Age 1990) Mother (Age 2001) Social History Tobacco Use Types Packs/Day Years Used Date Smoking Tobacco: Never Smokeless Tobacco: Never Alcohol Use Standard Drinks/Week Comments No 0 (1 standard drink = 0.6 oz pur e alcohol) Comments Unknown Sex and Gender Information Value Date Recorded Sex Assigned at Not on file Legal Sex Female 1:42 AM CDT Gender Identity Not on file Sexual Orientation Not on file Occupation Industry Job Start Date Job End Date Not on file Not on file Not on file Not on file Last Filed Vital Signs Vital Sign Reading Time Taken Comments Blood Pressure 190/90 01/02/2024 2:17 PM CDT Pulse 92 01/02/2024 2:17 PM CDT Temperature 36.4 C (97.5 F) 06/01/2017 4:58 AM CDT Respiratory Rate 16 05/31/2017 12:19 PM CDT Oxygen Saturation 97% 12/27/2022 1:53 PM CDT Inhaled Oxygen Concentration - - Weight 60.8 kg (134 lb) 01/02/2024 2:17 PM CDT Height 162.6 cm (5' 4) 01/02/2024 2:17 PM CDT Body Mass Index 23 01/02/2024 2:17 PM CDT Plan of Treatment Upcoming Encounters Date Type Department Care Team (Late st Contact Info) Description 02/27/2025 1:45 PM SYNTHETIC DEPARTMENT SUPERVISOR Office Visit [facility], [address] [address] Fabien Davis MD [facility]. [address] [id number] Health Maintenance Due Date Last Done Comments DTaP, Tdap and Td Vaccines ( 1 - Tdap) 05/27/1954 Zoster Vaccines (1 of 2) 1986 Annual Medicare Wellness Visit 2001 RSV Immunization or 60+ Years (1 - 1-dose 75+ series) 05/27/2011 COVID-19 Vaccine (2023-2 5 season) 2023 05/07/2020, 04/09/2020 Pneumococcal Vaccine: 50+ Years Completed 12/07/2015, 01/12/2014 Meningococcal B Vaccine Aged Out No l onger eligible based on patient's age to complete this topic Meningococcal Vaccine Aged Out No felice salma eligible based on patient's age to complete this topic RSV Immunizations Under 20 Months Aged Out No longer eligible b ased on patient's age to complete this topic Medical Devices Implanted Type Area Supervisor [employer] Device Identifier Shelf Expiration Date Model / Serial / Lot Stem Hip Clive Versys Advocate Cemented 12 X 125 Standard - [id number] Implanted:Qty: 1 on 05/30/2017 by Alen Falcon MD at [facility] Left: Hip [employer] 12/09/2025 [id number] / / [id number] Cement Restrictor Implanted:Qty: 1 on 05/30/2017 by Alen Falcon MD at [facility] Left: Hip 09/08/2021 / / [id number] Centralizer Clive Versys Distal 12mm - [id number] Implanted:Qty: 1 on 05/30/2017 by Alen Falcon MD at [facility] Left: Hip [employer] 03/11/2027 [id number] / / [id number] Component Unipolar Clive 45mm - [id number] Implanted:Qty: 1 on 05/30/2017 by Alen Falcon MD at [facility] Left: Hip [employer] 04/11/2026 [id number] / / [id number] Component Adapter Neck Length Clive - [id number] Implanted:Qty: 1 on 05/30/2017 by Alen Falcon MD at [facility] Left: Hip [employer] 07/09/2025 [id number] / / [id number] Insurance [place] [id number] [place] [address] [address] [facility] MED[facility] Member Subscriber Plan / Payer ( fective 2017-Present) Name:Maria Teresa Adames Relation to Subscriber:Self Name:MARIA TERESA ADAMES Payer ID:Not on file Group ID:Not on file Type:Indemnity Address: ATTN CLAIMS [id number] Advance Directives * Full Code (Latest Code Status on File) Date Activated Date Inactivated Comments 05/30/2017 9:01 PM 06/01/2017 3:45 PM Care Teams Allocations Clerk Relationship Specialty Start Date End Date John Lopez MD [address] [place] [id number] PCP - General INTERNAL MEDICINE 06/01/16 Genevieve Mccray MD [address] [place] [address] Edilia Embedded Firmware Engineer CARDIOVASCULAR DISEASE 07/11/16
--- OUTSIDE RECORDS SUMMARY | 2024-08-28 20:31 | XMS_ITS | Encounter Summary ---
Author Organization [facility] Address [address] [place] [id number] Care Team Providers Care Centerless Grinder Set Up Operator Name Role Phone John Lopez MD Primary Care Provider [phone] Genevieve Mccray MD Unavailable [phone] Encounter Details Date Type Department Care Team (Latest Contact Info) Description 01/15/2018 Abstract [facility] , Ilir Maldonado MD Social History Tobacco Use Types Packs/Day Years [...] file Not on file Not on file documented as of this encounter Plan of Treatment Upcoming Encounters Date Type Department Care Team (Late st Contact Info) Description 02/27/2025 1:45 PM EMPLOYEE DEVELOPMENT SPECIALIST Office Visit [facility], [facility] [address] [place], [place] [phone] Fabien Davis MD [facility]. [facility] [address] [place], [place] [id number] documented as of this encounter Visit Diagnoses Not on filedocumented in this encounter Care Teams Centerless Grinder Set Up Operator Relationship Specialty Start Date End Date John Lopez MD [address] [place] [phone] PCP - General INTERNAL MEDICINE 06/01/16 Genevieve Mccray MD [address] [place] [address] Edilia Rn Psych CARDIOVASCULAR DISEASE 07/11/16 documented as of this encounter
--- OUTSIDE RECORDS SUMMARY | 2024-08-28 20:31 | XMS_ITS | Encounter Summary ---
Author Organization [facility] Address [facility] [place] [address] Care Team Providers Care Hoop Maker Machine Name Role Phone John Lopez MD Primary Care Provider [phone] Genevieve Mccray MD Unavailable [phone] Encounter Details Date Type Department Care Team (Late Contact Info) Description 07/26/2015 Abstract [facility] [address] [place] [address] Genevieve Mccray MD [address] [place] [id number] Social History Tobacco Use Types Packs/Day Years Used Date Smoking Tobacco: Never Comments Unknown Sex and Gender Information Value Date Recorded Sex Assigned at Not on file Legal Sex Female 1:42 AM CDT Gender Identity Not on file Sexual Orientation Not on file Occupation Industry Job Start Date Job End Date Retired Not on file Not on file Not on file documented as of this encounter Plan of Treatment Upcoming Encounters Date Type Department Care Team (Late Contact Info) Description 02/27/2025 1:45 PM PIN OR CLIP FASTENER Office Visit [facility] [address] [place], [place] [id number] Fabien Davis MD [facility]. [facility] [address] [place], [place] [address] documented as of this encounter Visit Diagnoses Not on filedocumented in this encounter Care Teams Hoop Maker Machine Relationship Specialty Start Date End Date John Lopez MD [address] [place] [address] PCP - General INTERNAL MEDICINE 06/01/16 Genevieve Mccray MD [address] [place] [address] [employer] Business Owner/Engineer CARDIOVASCULAR DISEASE 07/11/16 documented as of this encounter
[2024-08-28] MEDS: oxyCODONE HCL (*CRX) 5 MG TAB IR 10 MG PO (21:12)
[2024-08-28 21:56] VITALS: BMI 23.3
[2024-08-28 22:17] VITALS: BP 139/54; PULSE 79; RESP 16; TEMP 37.2; O2SAT 97
--- NOTE | 2024-08-28 22:24 | PC.NURSE ---
This patient, Jaqueline Verma, was admitted to [facility] Surg Room 321-02. Patient/family oriented to hospital policies and general routines including ID bracelet, bed and alarms, visiting hours, pain management, procedures, bathroom and other care routines, personal items, smoking policy, room service/diet, and visiting hours. Information on how to activate the Rapid Response Team has been discussed. Patient/Family are encouraged to report perceived risks to care and to ask questions if they do not understand what they are told or what they should do.
[2024-08-29] VITALS (13 sets, daily range): BP systolic 119–174; BP diastolic 43–83; PULSE 81–104; RESP 16–26; TEMP 36.2–38.2; O2SAT 95–100
[2024-08-29] MEDS: ACETAMINOPHEN 325 MG TABLET 650 MG PO ×4 (00:21→16:49)
[2024-08-29] MEDS: SENNA/DOCUSATE SODIUM TABLET 1 TAB PO ×2 (00:21→22:09)
[2024-08-29] MEDS: oxyCODONE HCL (*CRX) 5 MG TAB IR 10 MG PO (02:03)
[2024-08-29] MEDS: SODIUM CHLORIDE 0.45% 1,000 ML 100 ML IV CONT ×2 (06:41→06:43)
[2024-08-29 06:45] LABS: Basophils Absolute Auto 0.1 K/mm3 (0.0-0.1); Basophils Percent Auto 0.4 % (0.2-1.2); Eosinophils Percent Auto 0.1 % (0-4.4); Hematocrit 40.2 % (37.0-47.0); Hemoglobin 12.4 g/dL (12.0-15.0); Immature Granulocyte Percent A 0.7 % (0-0.5); Lymphocytes Absolute Auto 2.67 K/mm3 (0.9-3.2); Lymphocytes Percent Auto 18.5 % (18.3-44.2); Mean Corpuscular HGB Conc 30.8 g/dl (32-36); Mean Corpuscular Hemoglobin 28.1 pg (26-34); Mean Platelet Volume 9.8 fl (7.4-10.4); Monocytes Absolute Auto 1.3 K/mm3 (0.1-0.6); Monocytes Percent Auto 9.1 % (2.6-8.5); Neutrophils Absolute Auto 10.3 K/mm3 (1.3-6.7); Neutrophils Percent Auto 71.2 % (45.5-73.1); Platelet Count Result 490 k/mm3 (150-375); Red Blood Count 4.42 M/mm3 (4.2-5.4); White Blood Count 14.5 K/mm3 (4.5-10.0)
[2024-08-29 07:06] LABS: Anion Gap 7 mmol/L (4-12); Blood Urea Nitrogen 13 mg/dL (7-17); Calcium 8.8 mg/dL (8.4-10.2); Carbon Dioxide 27 mmol/L (22-30); Chloride 99 mmol/L (98-107); Estimated CRCL calculation 39 ml/min; Estimated Glomerular Filt Rate > 60; Glucose 113 mg/dL (65-110); Potassium 3.8 mmol/L (3.4-5.0); Sodium 133 mmol/L (137-145)
[2024-08-29] MEDS: SODIUM CHLORIDE 0.9% IV 1,000 ML 75 ML IV CONT (10:01)
--- NOTE | 2024-08-29 12:01 | WPDANESEPPF ---
Anes - Initial Pre Proc Eval Procedure: Operation Date: 08/29/24 13:00 Proposed Procedures p Right Bipolar - Henrique Valles MD Date/Time: 08/29/24 12:01 Surgeon: Declan Taveras MD Pre Op Diagnosis: Proximal right femoral neck fracture Patient Data Age: 89 Gender: F Height: 1.6 m Weight: 59.7 kg Last Vital Signs Temp 36.9 C 08/29/24 04:51 Pulse 88 08/29/24 04:51 Resp 16 08/29/24 04:51 BP 148/63 H 08/29/24 04:51 Pulse Ox 100 08/29/24 04:51 O2 Del Method Room Air 08/29/24 08:45 Allergies Allergy/AdvReac Type Severity Reaction Status Date / Time No Known Allergies Allergy Verified 08/14/24 17:48 Home Medications ?Medication ?Instructions ?Recorded ?Confirmed ?Type buspirone 5 mg tablet 5 mg PO BID PRN anxiety 08/13/24 08/28/24 History acetaminophen 500 mg capsule 1,000 mg PO BID PRN pain 08/14/24 08/28/24 History aspirin 81 mg tablet,delayed 81 mg PO HS 08/14/24 08/28/24 History release calcium 600 mg-D3 20 mcg-magnesium 1 tablet PO .am 08/14/24 08/28/24 History 50 um-Oj-luhnan-vonnie-boron tablet lidocaine 5 % topical patch 1 patch transdermal DAILY #1 ea 08/17/24 08/28/24 Rx (Lidoderm) peg 296-obibbiguizlg-lhmswkqd 1 1 drp RIGHT EYE QID #1 mL 08/17/24 08/28/24 Rx %-0.2 %-0.2 % eye drops (Artificial Tears ([id number])) white petrolatum-mineral oil 83 1 applic RIGHT EYE HS #1 g 08/17/24 08/28/24 Rx %-15 % eye ointment (Lubrifresh PM) loratadine 10 mg tablet 10 mg PO QHS #1 tablet 08/28/24 08/28/24 Rx metoprolol tartrate 25 mg tablet 12.5 mg (1/2 x 25 mg) PO BID #30 08/28/24 08/28/24 Rx tabs polyethylene glycol 3350 17 gram 17 g PO QAM #14 ea 08/28/24 08/28/24 Rx oral powder packet (Miralax) prednisone 10 mg tablet 10 mg PO DAILY@0800 #3 tabs 08/28/24 08/28/24 Rx sennosides 8.6 mg-docusate sodium 1 tab-cap PO HS #1 tablet 08/28/24 08/28/24 Rx 50 mg tablet (Senokot-S) Laboratory Tests 08/29/24 06:20 WBC 14.5 H K/mm3 (4.5-10.0) RBC 4.42 M/mm3 (4.2-5.4) Hgb 12.4 g/dL (12.0-15.0) Hct 40.2 % (37.0-47.0) MCV 91.0 fl (80-100) MCH 28.1 pg (26-34) MCHC 30.8 L g/dl (32-36) RDW 15.0 H % (11.5-14.5) Plt Count 490 H k/mm3 (150-375) MPV 9.8 fl (7.4-10.4) Immature Gran % (Auto) 0.7 H % (0-0.5) Neut % (Auto) 71.2 % (45.5-73.1) Lymph % (Auto) 18.5 % (18.3-44.2) [place] % (Auto) 9.1 H % (2.6-8.5) Eos % (Auto) 0.1 % (0-4.4) Baso % (Auto) 0.4 % (0.2-1.2) Lymph # (Auto) 2.67 K/mm3 (0.9-3.2) [place] # (Auto) 1.3 H K/mm3 (0.1-0.6) Eos # (Auto) 0.0 K/mm3 (0-0.3) Baso # (Auto) 0.1 K/mm3 (0.0-0.1) Abs Immat Gran (auto) 0.10 H K/mm3 (0.00-0.031) Absolute Neuts (auto) 10.3 H K/mm3 (1.3-6.7) Absolute Nucleated RBC 0.000 K/mm3 (0.0-0.012) Nucleated RBC % 0.0 % (0.0-0.2) Sodium 133 L mmol/L (137-145) Potassium 3.8 mmol/L (3.4-5.0) Chloride 99 mmol/L (98-107) Carbon Dioxide 27 mmol/L (22-30) Anion Gap 7 mmol/L (4-12) BUN 13 mg/dL (7-17) Creatinine 0.71 mg/dL (0.7-1.0) Estim Creat Clear Calc 39 ml/min Estimated GFR > 60 (59 - ) Glucose 113 H mg/dL (65-110) Calcium 8.8 mg/dL (8.4-10.2) Patient hx anesthesia problems: none Family hx anesthesia problems: none Results Review: All pre-operative results and documents have been reviewed as part of the pre-operative evaluation. [facility] Past Medical History Medical History Hypertension Osteoarthritis Surgical History Surgical History History of hip replacement History of cholecystectomy Family History Family History Other No significant family history Social History Social History Smoking status: Never smoker Second hand tobacco smoke exposure: Yes Alcohol intake: never Substance use: never Substance use type: does not use Do You Feel Safe in your Home?: Yes Lack of Transportation: No Lack of Food: Never True Current Housing: I Have Housing Concerned About Future Housing: No Difficulty Paying Gas/Electric Bills: No Difficulty Paying for Meds: No Currently Unemployed: No Education: High School Diploma/GED Difficulty w/ Childcare or Family Care: No Living arrangements: with family Sexual Orientation (if Verbalized by the Patient): Straight or Heterosexual Spiritual care concerns: No Anes - Eval Final PreProcedure Day of Procedure 08/29/24 12:01 Patient weight: normal Heart: regular rate and rhythm Lungs: clear to auscultation Airway: Mallampati scale class II Neurological: alert and oriented Last oral intake: >/= 8 hours ASA classification: III Emergent: no Anesthetic plan: proceed Anesthesia type and monitoring: general LMA and standard monitoring Results Review: All pre-operative results and documents have been reviewed as part of the pre-operative evaluation. Informed Consent: The patient's anesthetic plan and its attendant risks and benefits were discussed with the patient/family/POA. Questions were solicited and answers provided to the satisfaction of the patient/family/POA.
--- NOTE | 2024-08-29 12:09 | PC.NURSE ---
Addendum entered by Radha Colon RN 08/29/24 12:10: Patient to OR at 1130am Original Note: To OR per bed, IV 22 to RAC patent. Report given to LUZ Jay.
[2024-08-29] MEDS: LACTATED RINGERS 1,000 ML 30 ML IV CONT ×2 (12:18→14:24)
--- NOTE | 2024-08-29 12:39 | P.HP_ITS ---
H&P: HPI History of Present Illness Date/Time: 08/29/24 12:39 Chief Complaint: Right Hip Femoral Neck Fracture Narrative: Anterior Right Hip Pain, fell about 2 weeks ago with xrays read as negative. - lives at home independently - was at a rehab facility after her fall for work up with Abram Jason - follow up MRI showed a femoral neck fracture Right Hip - xrays done yesterday showed a displaced right femoral neck fracture - 3.5 yrs, has 1 child - daughter who lives in [place] - Left Hip Fabrice 7 yrs ago in [facility] Review of Systems Review of Systems: All systems reviewed & are unremarkable except as noted in HPI and below Constitutional: Constitutional: Reports as per HPI PMFSH Past Medical History Medical History Hypertension Osteoarthritis Surgical History Surgical History History of hip replacement History of cholecystectomy Family History Family History Other No significant family history Social History Social History Smoking status: Never smoker Second hand tobacco smoke exposure: Yes Alcohol intake: never Substance use: never Substance use type: does not use Do You Feel Safe in your Home?: Yes Lack of Transportation: No Lack of Food: Never True Current Housing: I Have Housing Concerned About Future Housing: No Difficulty Paying Gas/Electric Bills: No Difficulty Paying for Meds: No Currently Unemployed: No Education: High School Diploma/GED Difficulty w/ Childcare or Family Care: No Living arrangements: with family Sexual Orientation (if Verbalized by the Patient): Straight or Heterosexual Spiritual care concerns: No Comments Anterior Right Hip Pain, fell about 2 weeks ago with xrays read as negative. - lives at home independently - was at a rehab facility after her fall for work up with Abram Jason - follow up MRI showed a femoral neck fracture Right Hip - xrays done yesterday showed a displaced right femoral neck fracture - 3.5 yrs, has 1 child - daughter who lives in [place] - Left Hip Fabrice 7 yrs ago in [facility] Meds Home Medications and Allergies Home Medications ?Medication ?Instructions ?Recorded ?Confirmed ?Type buspirone 5 mg tablet 5 mg PO BID PRN anxiety 08/13/24 08/28/24 History acetaminophen 500 mg capsule 1,000 mg PO BID PRN pain 08/14/24 08/28/24 History aspirin 81 mg tablet,delayed 81 mg PO HS 08/14/24 08/28/24 History release calcium 600 mg-D3 20 mcg-magnesium 1 tablet PO .am 08/14/24 08/28/24 History 50 ou-Xk-pfcojv-vonnie-boron tablet lidocaine 5 % topical patch 1 patch transdermal DAILY #1 ea 08/17/24 08/28/24 Rx (Lidoderm) peg 124-qgsctoysmqje-bvaphawo 1 1 drp RIGHT EYE QID #1 mL 08/17/24 08/28/24 Rx %-0.2 %-0.2 % eye drops (Artificial Tears ([id number]-msbjifhr)) white petrolatum-mineral oil 83 1 applic RIGHT EYE HS #1 g 08/17/24 08/28/24 Rx %-15 % eye ointment (Lubrifresh PM) loratadine 10 mg tablet 10 mg PO QHS #1 tablet 08/28/24 08/28/24 Rx metoprolol tartrate 25 mg tablet 12.5 mg (1/2 x 25 mg) PO BID #30 08/28/24 08/28/24 Rx tabs polyethylene glycol 3350 17 gram 17 g PO QAM #14 ea 08/28/24 08/28/24 Rx oral powder packet (Miralax) prednisone 10 mg tablet 10 mg PO DAILY@0800 #3 tabs 08/28/24 08/28/24 Rx sennosides 8.6 mg-docusate sodium 1 tab-cap PO HS #1 tablet 08/28/24 08/28/24 Rx 50 mg tablet (Senokot-S) Allergies Allergy/AdvReac Type Severity Reaction Status Date / Time No Known Allergies Allergy Verified 08/29/24 12:05 Vital Signs Vital Signs - 24 hr 08/28/24 22:17 08/28/24 23:48 08/29/24 04:51 Temperature 37.2 C 36.9 C Pulse Rate 79 88 Respiratory Rate 16 16 Blood Pressure 139/54 L 148/63 H Pulse Oximetry 97 100 Oxygen Delivery Room Air 08/29/24 08:45 08/29/24 12:06 Temperature 38.2 C H Pulse Rate 86 Respiratory Rate Blood Pressure 143/59 H Pulse Oximetry 98 Oxygen Delivery Room Air Room Air Exam Narrative: Right LE shortened and Externally rotated. - NO swelling tenderness or deformity of right and left LE. - NVI H&P: Results Labs Labs: Short CBC 08/29/24 Range/Units 06:20 WBC 14.5 H (4.5-10.0) K/mm3 Hgb 12.4 (12.0-15.0) g/dL Hct 40.2 (37.0-47.0) % Plt Count 490 H (150-375) k/mm3 BMP 08/29/24 06:20 Sodium 133 L Potassium 3.8 Chloride 99 Carbon Dioxide 27 BUN 13 Creatinine 0.71 Glucose 113 H Calcium 8.8 Assessment and Plan Assessment and plan (1) Right femoral fracture: Code(s): S72.91XA - Unspecified fracture of right femur, initial encounter for closed fracture Status: Acute Assessment and Plan: 89 yr old female with Right Hip Femoral Neck Fx displaced. - recommend Right Hip Fabrice - risks associated discussed with patient - include but are not limited to: infx, nerve or blood vessel injury, foot drop, dvt, dislocation Plan Right Hip Fabrice
[2024-08-29] MEDS: ceFAZolin 2 GM/D5W 50 ML 2 GM/50 ML BAG IVPB ×2 (12:40→22:10)
--- NOTE | 2024-08-29 12:45 | WPDHPUPDATE1 ---
History and Physical Update Update Date/Time: 08/29/24 12:45 History and Physical has been reviewed, including an updated exam of the patient. There are NO changes in the patient's condition. Risks, benefits, and alternatives have been discussed and questions answered. Patient agrees to proceed with procedure. Right Hip Fabrice
[2024-08-29] MEDS: ceFAZolin SODIUM 1 GM VIAL (13:25)
--- NOTE | 2024-08-29 14:40 | P.HP_ITS ---
H&P: HPI History of Present Illness Date/Time: 08/29/24 14:40 Chief Complaint: Fall/right hip pain/ Corbin's palsy/ rehab Narrative: Jaqueline Verma is a 89 year old female who was admitted to [facility] f or further rehabilitation following hospitalization. Patient has past medical history osteoarthritis, severe right osteoarthritis and hypertension. patient was evaluated on the medical unit initially it [facility] where she was found to have new right-sided facial droop at which time a code stroke was called and patient was taken down for a stat CT head which showed no acute intracranial process and age-related changes consistent with chronic small- vessel ischemic disease. CTA was negative for any occlusions, patient with continued to have right facial drop CVA vs corbin's palsey no previous history of either. 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 Patient continued therapy at [facility] with slow progression and worsening right hip pain which eventually worsened her ambulation a repeat MRI was completed which at that time showed a proximal right femoral neck fracture. Patient was then transferred to [facility] for surgical intervention by orthopedics for repair. Review of Systems Review of Systems: All systems reviewed & are unremarkable except as noted in HPI and below PMFSH Past Medical History Medical History Hypertension Osteoarthritis Surgical History Surgical History History of hip replacement History of cholecystectomy Family History Family History Other No significant family history Social History Social History Smoking status: Never smoker Second hand tobacco smoke exposure: Yes Alcohol intake: never Substance use: never Substance use type: does not use Do You Feel Safe in your Home?: Yes Lack of Transportation: No Lack of Food: Never True Current Housing: I Have Housing Concerned About Future Housing: No Difficulty Paying Gas/Electric Bills: No Difficulty Paying for Meds: No Currently Unemployed: No Education: High School Diploma/GED Difficulty w/ Childcare or Family Care: No Living arrangements: with family Sexual Orientation (if Verbalized by the Patient): Straight or Heterosexual Spiritual care concerns: No Meds Home Medications and Allergies Home Medications ?Medication ?Instructions ?Recorded ?Confirmed ?Type buspirone 5 mg tablet 5 mg PO BID PRN anxiety 08/13/24 08/28/24 History acetaminophen 500 mg capsule 1,000 mg PO BID PRN pain 08/14/24 08/28/24 History aspirin 81 mg tablet,delayed 81 mg PO HS 08/14/24 08/28/24 History release calcium 600 mg-D3 20 mcg-magnesium 1 tablet PO .am 08/14/24 08/28/24 History 50 xt-Yg-dcyagf-vonnie-boron tablet lidocaine 5 % topical patch 1 patch transdermal DAILY #1 ea 08/17/24 08/28/24 Rx (Lidoderm) peg 984-rfylhhemttfm-deqlmmwm 1 1 drp RIGHT EYE QID #1 mL 08/17/24 08/28/24 Rx %-0.2 %-0.2 % eye drops (Artificial Tears ([id number])) white petrolatum-mineral oil 83 1 applic RIGHT EYE HS #1 g 08/17/24 08/28/24 Rx %-15 % eye ointment (Lubrifresh PM) loratadine 10 mg tablet 10 mg PO QHS #1 tablet 08/28/24 08/28/24 Rx metoprolol tartrate 25 mg tablet 12.5 mg (1/2 x 25 mg) PO BID #30 08/28/24 08/28/24 Rx tabs polyethylene glycol 3350 17 gram 17 g PO QAM #14 ea 08/28/24 08/28/24 Rx oral powder packet (Miralax) prednisone 10 mg tablet 10 mg PO DAILY@0800 #3 tabs 08/28/24 08/28/24 Rx sennosides 8.6 mg-docusate sodium 1 tab-cap PO HS #1 tablet 08/28/24 08/28/24 Rx 50 mg tablet (Senokot-S) Allergies Allergy/AdvReac Type Severity Reaction Status Date / Time No Known Allergies Allergy Verified 08/29/24 12:05 Vital Signs Vital Signs - 24 hr 08/28/24 22:17 08/28/24 23:48 08/29/24 04:51 Temperature 98.9 F 98.5 F Pulse Rate 79 88 Respiratory Rate 16 16 Blood Pressure 139/54 L 148/63 H Pulse Oximetry 97 100 Oxygen Delivery Room Air 08/29/24 08:45 08/29/24 12:06 Temperature 100.8 F H Pulse Rate 86 Respiratory Rate Blood Pressure 143/59 H Pulse Oximetry 98 Oxygen Delivery Room Air Room Air Exam Const: General: comfortable and no acute distress HENMT: Ears: TM's normal bilaterally Face/Nose/Sinus: Normal nares present Mouth: Yes moist mucous membranes Eyes: General: appearance normal, both eyes and all related structures Sclera: sclerae normal Pupils: Equal, round and reactive pupils present EOM: EOMs intact bilaterally Neck: Neck: supple and no JVD Resp: Effort & Inspection: normal respiratory effort Auscultation: clear to auscultation bilaterally Cardio: Rate: regular rate Rhythm: regular rhythm GI: GI Palp: Yes Soft to palpation Auscultation: normal bowel sounds Skin: General skin exam: normal color and no rashes or lesions noted Wounds: no wounds Neuro: General: gait normal Speech: normal speech Motor exam (neuro): 5/5 motor strength present throughout Other: Right sided facial paralysis Extrem: General: normal to inspection Other: Right hip pain Psych: Mental Status: mental status grossly normal Affect: normal affect H&P: Results Labs Labs: Short CBC 08/29/24 Range/Units 06:20 WBC 14.5 H (4.5-10.0) K/mm3 Hgb 12.4 (12.0-15.0) g/dL Hct 40.2 (37.0-47.0) % Plt Count 490 H (150-375) k/mm3 BMP 08/29/24 06:20 Sodium 133 L Potassium 3.8 Chloride 99 Carbon Dioxide 27 BUN 13 Creatinine 0.71 Glucose 113 H Calcium 8.8 Imaging MRI - head: Radiologist's impression: EXAMINATION: MR brain/brain stem wo con DATE: INDICATION: Stroke with right facial droop TECHNIQUE: Magnetic resonance imaging (MRI) of the brain and brainstem was performed without intravenous contrast. Sequences included sagittal and axial T1-weighted SE, axial diffusion-weighted FS SE, axial 3D SWAN, axial T2-weighted FLAIR, and axial T2-weighted FSE. Apparent diffusion coefficient (ADC) maps were created. COMPARISON: None. FINDINGS: There are no areas of restricted diffusion to suggest acute infarction. No intracranial hemorrhage or abnormal intracranial mass lesion. There are scattered areas of nonspecific increased T2-weighted signal intensity in the cerebral white matter, predominantly involving the deep and periventricular white matter. There are no intraparenchymal signal abnormalities seen on the other pulse sequences. Symmetric prominence of the sulci consistent with mild age-appropriate diffuse cerebral volume loss. The ventricles are symmetric and normal in size. There are no abnormal extra-axial fluid collections. Flow voids are seen in the cerebral arteries on the T2-weighted sequences consistent with their expected patency. Changes of bilateral intraocular lens replacement. Visualized orbits and soft tissues are unremarkable. IMPRESSION: 1. No acute intracranial process. 2. Age-related changes including mild diffuse volume loss and moderate periventricular predominant nonspecific white matter T2 hyperintensity consistent with chronic small vessel ischemic disease. Assessment and Plan Assessment and plan (1) Right femoral fracture: Code(s): S72.91XA - Unspecified fracture of right femur, initial encounter for closed fracture Status: Acute Assessment and Plan: patient with initial fall back on 08/13/2024 initial x-ray of bilateral hips and pelvis reported no acute fractures patient had continued rehabilitation and [place] swing bed but was regressing and reported worsening hip pain an MRI was completed that showed a right proximal femur neck fracture. * orthopedics consulted * RT hip Fabrice 08/29/2024 * pain management * DVT prophylaxis per ortho * PT OT post surgery weight-bearing per ortho * SCDs/ Pee newsomee (2) Facial paralysis/[place] palsy: Code(s): G51.0 - Corbin's palsy Status: Acute Assessment and Plan: Patient had new onset left facial drooping appeared consistent with Corbin's palsy however due to patient's age was concerned for possible stroke patient was transferred here to [place] CT, CTA, MRI of head negative for stroke * completed acyclovir 400 mg p.o. Q 5 for 10 days * prednisone taper * artificial eyes and lubricant * May tape eye close at night or when resting (3) Accidental fall: Qualifiers: Encounter type: initial encounter Qualified Code(s): W19.XXXA - Unspecified fall, initial encounter Code(s): W19.XXXA - Unspecified fall, initial encounter Status: Acute Assessment and Plan: patient reported fall x2 at home with acute pain to left hip does have history of severe osteoarthritis, acute femoral fracture * pain management scheduled oxycodone and MO breakthrough pain medication * lidocaine patch to left hip * PT/OT Evaluation (4) Acute hip pain: Qualifiers: Laterality: right Qualified Code(s): M25.551 - Pain in right hip Code(s): M25.559 - Pain in unspecified hip Status: Acute Assessment and Plan: SEE ABOVE (5) Hypertension: Code(s): I10 - Essential (primary) hypertension Status: Acute Assessment and Plan: * continue patient's metoprolol 12.5 b.i.d. * monitor BP per unit protocol Plan Code status: Full code per patient DVT prophylaxis: SCD's/ DVT prophylaxis post surgery per Ortho Stress ulcer prophylaxis: NA PT/OT notes: PT/OT evaluation Disposition: patient admitted to medical unit with a right proximal femur fracture surgery scheduled for today plan for PT OT evaluation post surgery patient states she would like to return to [facility] bed for continued rehab surgery. Quality VTE Prophylaxis VTE prophylaxis: pharmacologic ordered -Patient's previous records reviewed on admission -ER notes reviewed in detail on admission -discussed all findings and current treatment plan with patient/Family/POA -Consultations reviewed for recommendations -Patient's disposition for safe discharge discussed with top case assembler Dictation performed by [employer] direct speech recognition software, therefore hospital account liaison variants and typographical errors may occur. Hospitalist [facility] Advance Care Plan I have confirmed that the patient's Advanced Care Plan is present, code status is documented, or surrogate decision maker is listed in patient medical record.: Yes Medication Reconciliation I have utilized all available resources to obtain, update and review the patients current medications (includes all prescriptions, OTC, herbals, cannabis, and nutritional supplements).: Yes The patient is not eligible for med reconciliation; the patient is in a emergent medical situation where delaying treatment would jeopardize the patients health.: No
--- NOTE | 2024-08-29 14:43 | W.PM.PROC2 ---
Procedure Note - Detailed Date of Procedure 08/29/24 Pre-op Diagnosis Proximal right femoral neck fracture Post-op Diagnosis Same Procedure Performed Right Hip Hemiarthroplasty Surgeon Henrique Valles MD Anesthesia General Indications Right hip neck fracture displaced Findings Displaced right hip femoral neck fracture Description of Procedure After an interview with the patient in the holding area and obtained consent for a right hemiarthroplasty the right hip was marked in the holding area the patient was interviewed and the procedure was described to the patient. The risks of the procedure include but are not limited to infection nerve or blood vessel injury DVT and dislocation and limb length discrepancy and the patient understood this and agreed to proceed. Patient was then brought to operating room placed in the supine position which time she underwent general anesthesia. She was then placed in the lateral decubitus position with right side up. The right hip was then prepped and draped in the standard sterile fashion. . Time-out was performed prior to incision to ensure the correct patient correct site of surgery the correct procedure and also that IV antibiotics were administered within 1 hour of the incision time. I then made a incision over the lateral aspect of the patient's right hip it was a posterolateral incision dissection was carried down the ITB band easily identified and sharply incised. I then used a Charnley retractor to expose the posterior aspect of the patient's hip. I easily identified the fracture by taking down the short external rotators as well as the piriformis and the capsule. I used the Aquamantys for hemostasis. I then proceeded to do a 1 cm femoral neck cut. I then proceeded to use a corkscrew to remove the femoral head which was obviously fractured. I then measured this at size 45 mm in diameter. I then proceeded to expose the proximal femur and broached up to a size 4B cure to obtain about 30? of anteversion which is over her anatomic anteversion. I then proceeded to trial with a extended offset and 0 neck length and that I had excellent stability with hip flexion to 90? and internal rotation to 90? with no dislocation. Limb lengths were also equal at this point. I then proceeded to place the actual implant in the exact same position as the trial and placed the bipolar component on reduced the hip and obtained the exact same stability profile as I did with the trial implants. I then irrigated copiously I then repaired the short external rotators along with the piriformis to the posterior aspect of the patient's hip with through a drill hole x2. I then proceeded to irrigate copiously and then I closed the ITB band using interrupted Ethibond suture. I then irrigated again injected with lidocaine and epinephrine into the subcutaneous tissue and closed the skin using 2-0 Vicryl suture interrupted as well as glue and then a placed a sterile dressing on top of this. Patient was then transferred to the recovery room in stable condition. During the entire procedure I identified the sciatic nerve and made sure to prevent injury to the sciatic nerve. Patient will be weight-bearing as tolerated posterior precautions antibiotics for 24 hours in physical therapy will be consulted as well as social work for outpatient physical therapy. Implants [employer] accolade 2 stem with 127 degree neck angle size 4 with a bipolar component 28 mm with a 0 mm offset Estimated Blood Loss 250 Urine Output 300 Drains No Packing No Pathology None sent Complications No immediate complications Condition Stable Disposition PACU
--- NOTE | 2024-08-29 14:44 | SUR.PHASEI ---
XRAY OF RIGHT HIP IN PROGRESS.
--- NOTE | 2024-08-29 14:50 | SUR.PHASEI ---
Addendum entered by Jenna Parsons RN 08/29/24 16:42: CORRECTION TO NOTE BELOW: SLIGHT LEFT-SIDED FACIAL (EYE AND MOUTH) DROOPING; SAME NOTED PRIOR TO SURGERY. H/O [employer] [facility]. Original Note: SLIGHT RIGHT-SIDED FACIAL DROOPING NOTED; SAME NOTED PRIOR TO SURGERY. H/O [employer].
[2024-08-29] MEDS: ONDANSETRON INJ 4 MG/2 ML VIAL IV PUSH (14:55)
[2024-08-29] MEDS: METOPROLOL TARTRATE 12.5 MG TABLET PO ×2 (16:41→22:13)
[2024-08-29] MEDS: predniSONE 10 MG TABLET PO (16:42)
[2024-08-29] MEDS: ARTIFICIAL TEARS OPHTH SOLN 15 ML BOTTLE 1 DROP RIGHT EYE ×2 (16:42→22:13)
[2024-08-29] MEDS: SODIUM CHLORIDE 0.9% IV 1,000 ML 125 ML IV CONT (16:44)
[2024-08-29] MEDS: LORATADINE 10 MG TABLET PO (22:12)
[2024-08-29] MEDS: ASPIRIN 81 MG ENTERIC TABLET PO (22:12)
[2024-08-29] MEDS: FAMOTIDINE 20 MG TABLET PO (22:13)
[2024-08-29] MEDS: MINERAL OIL/WHITE PETROLATUM OINTMENT 1 APPLIC RIGHT EYE (22:15)
[2024-08-30] MEDS: ACETAMINOPHEN 325 MG TABLET 650 MG PO ×4 (00:22→17:13)
[2024-08-30 01:21] VITALS: BP 122/56; PULSE 88; RESP 18; TEMP 36.3; O2SAT 97
[2024-08-30] MEDS: ceFAZolin 2 GM/D5W 50 ML 2 GM/50 ML BAG IVPB ×2 (04:33→12:16)
[2024-08-30 05:49] VITALS: BP 116/49; PULSE 90; RESP 18; TEMP 36.3; O2SAT 96
[2024-08-30 07:10] LABS: Basophils Percent Auto 0.2 % (0.2-1.2); Hemoglobin 10.1 g/dL (12.0-15.0); Immature Granulocyte Absolute 0.12 K/mm3 (0.00-0.031); Immature Granulocyte Percent A 0.8 % (0-0.5); Lymphocytes Absolute Auto 2.01 K/mm3 (0.9-3.2); Lymphocytes Percent Auto 12.6 % (18.3-44.2); Mean Corpuscular HGB Conc 30.6 g/dl (32-36); Mean Corpuscular Hemoglobin 27.8 pg (26-34); Mean Corpuscular Volume 90.9 fl (80-100); Mean Platelet Volume 9.6 fl (7.4-10.4); Monocytes Absolute Auto 1.3 K/mm3 (0.1-0.6); Monocytes Percent Auto 8.1 % (2.6-8.5); Neutrophils Absolute Auto 12.5 K/mm3 (1.3-6.7); Neutrophils Percent Auto 78.3 % (45.5-73.1); Platelet Count Result 432 k/mm3 (150-375); Red Blood Count 3.63 M/mm3 (4.2-5.4); Red Cell Distribution Width 15.1 % (11.5-14.5); White Blood Count 15.9 K/mm3 (4.5-10.0)
[2024-08-30 07:33] LABS: Alanine Aminotransferase 18 U/L (6-35); Albumin Level 2.6 g/dL (3.5-5.1); Alkaline Phosphatase 69 U/L (38-126); Anion Gap 4 mmol/L (4-12); Aspartate Amino Transferase 30 U/L (14-36); Bilirubin,Total 0.3 mg/dL (0.2-1.3); Blood Urea Nitrogen 10 mg/dL (7-17); Calcium 8.3 mg/dL (8.4-10.2); Carbon Dioxide 27 mmol/L (22-30); Chloride 104 mmol/L (98-107); Estimated CRCL calculation 40 ml/min; Estimated Glomerular Filt Rate > 60; Glucose 116 mg/dL (65-110); Magnesium 1.9 mg/dL (1.6-2.3); Potassium 3.8 mmol/L (3.4-5.0); Sodium 135 mmol/L (137-145); Total Protein 5.5 g/dL (6.3-8.2)
--- NOTE | 2024-08-30 08:58 | P.PNIM_ITS ---
Progress Note: A&P Assessment and Plan (1) Right femoral fracture: Code(s): S72.91XA - Unspecified fracture of right femur, initial encounter for closed fracture Status: Acute Assessment and Plan: patient with initial fall back on 08/13/2024 initial x-ray of bilateral hips and pelvis reported no acute fractures patient had continued rehabilitation and [place] [facility] but was regressing and reported worsening hip pain an MRI was completed that showed a right proximal femur neck fracture. 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 Q 5 for 10 days * prednisone taper * artificial eyes and lubricant * May tape eye close at night or when resting (3) Accidental fall: Qualifiers: Encounter type: initial encounter Qualified Code(s): W19.XXXA - Unspecified fall, initial encounter Code(s): W19.XXXA - Unspecified fall, initial encounter Status: Acute Assessment and Plan: patient reported fall x2 at home with acute pain to left hip does have history of severe osteoarthritis, acute femoral fracture * pain management scheduled oxycodone and NV breakthrough pain medication * lidocaine patch to left hip * PT/OT Evaluation (4) Acute hip pain: Qualifiers: Laterality: right Qualified Code(s): M25.551 - Pain in right hip Code(s): M25.559 - Pain in unspecified hip Status: Acute Assessment and Plan: SEE ABOVE (5) Hypertension: Code(s): I10 - Essential (primary) hypertension Status: Acute Assessment and Plan: * continue patient's metoprolol 12.5 b.i.d. * monitor BP per unit protocol Plan Code status: Full code per patient DVT prophylaxis: SCD's/ DVT prophylaxis post surgery per Ortho Stress ulcer prophylaxis: NA PT/OT notes: PT/OT evaluation Disposition: patient admitted to medical unit with a right proximal femur fracture surgery scheduled for post-op day 1plan for PT OT evaluation post surgery patient states she would like to return to [facility] bed for continued rehab surgery. Time Spent With Patient Time with patient: 15 - 25 minutes Subjective Date/time seen: 08/30/24 08:58 Interval history: Patient is an 89-year-old female who was admitted for right hip fracture surgery completed 08/29/2024. 08/30/2024: Patient up in chair post-op day 1 mild hip discomfort but patient reports overall improvement. Denied any CP, SOB, N/V working with PT/OT plan to discharge back to [facility] for continued rehab. Review of Systems Review of Systems: All systems reviewed & are unremarkable except as noted in HPI and below Exam Const: General: comfortable and no acute distress HENMT: Ears: TM's normal bilaterally Face/Nose/Sinus: Normal nares present Mouth: Yes moist mucous membranes Eyes: General: appearance normal, both eyes and all related structures Sclera: sclerae normal Pupils: Equal, round and reactive pupils present EOM: EOMs intact bilaterally Neck: Neck: supple and no JVD Resp: Effort & Inspection: normal respiratory effort Auscultation: clear to auscultation bilaterally Cardio: Rate: regular rate Rhythm: regular rhythm GI: Auscultation: normal bowel sounds Skin: General skin exam: normal color and no rashes or lesions noted Wounds: no wounds Neuro: General: gait normal Cranial nerves: Yes Equal, round and reactive pupils present Speech: normal speech Motor exam (neuro): 5/5 motor strength present throughout Other: Right sided facial paralysis Extrem: General: normal to inspection Other: Right hip pain Psych: Mental Status: mental status grossly normal Affect: normal affect Objective Data Vital Signs Vital Signs: Vital Signs - 24 hr 08/29/24 12:06 08/29/24 14:24 08/29/24 14:35 Temperature 100.8 F H 97.8 F Pulse Rate 86 96 93 Respiratory Rate 16 26 H Blood Pressure 143/59 H 158/81 H 174/83 H Pulse Oximetry 98 100 100 Oxygen Delivery Room Air Simple Face Mask Room Air Oxygen Flow Rate 8 08/29/24 14:50 08/29/24 15:05 08/29/24 15:20 Temperature Pulse Rate 99 90 91 Respiratory Rate 20 20 22 H Blood Pressure 171/73 H 166/67 H 157/67 H Pulse Oximetry 97 96 95 Oxygen Delivery Room Air Room Air Room Air Oxygen Flow Rate 08/29/24 15:35 08/29/24 16:15 08/29/24 16:30 Temperature 97.6 F 97.1 F L Pulse Rate 91 104 H 97 Respiratory Rate 20 17 16 Blood Pressure 162/71 H 139/71 143/62 H Pulse Oximetry 95 99 96 Oxygen Delivery Room Air Oxygen Flow Rate 08/29/24 17:00 08/29/24 17:49 08/29/24 20:00 Temperature 98.1 F 97.7 F Pulse Rate 86 81 Respiratory Rate 17 16 Blood Pressure 150/75 H 149/64 H Pulse Oximetry 96 95 Oxygen Delivery Room Air Oxygen Flow Rate 08/29/24 21:49 08/30/24 01:21 08/30/24 05:49 Temperature 97.2 F L 97.4 F L 97.4 F L Pulse Rate 92 88 90 Respiratory Rate 18 18 18 Blood Pressure 119/43 L 122/56 L 116/49 L Pulse Oximetry 95 97 96 Oxygen Delivery Oxygen Flow Rate Intake/Output Intake/Output: Intake & Output 08/27/24 08/28/24 08/29/24 08/30/24 23:59 23:59 23:59 23:59 Intake Total 2303.3 240 Output Total 900 Balance 1403.3 240 Meds/Results Medications: Active Medications Generic Name Dose Route Start Last Admin Trade Name Freq PRN Reason Stop Dose Admin Acetaminophen 650 mg 08/29/24 00:00 08/30/24 04:33 Acetaminophen 325 Mg Tablet PO 650 mg Q6HR RAMSES Administration Hydrocodone Bitart/Acetaminophen 1 tab 08/29/24 16:04 Hydrocodone/Acetaminophen (*Crx) 5-325 Mg Tablet PO Q4H PRN Pain Rated 4-6 Hydrocodone Bitart/Acetaminophen 1 tab 08/29/24 16:04 Hydrocodone/Acetaminophen (*Crx) 10-325 Mg Tablet PO Q4H PRN Pain Rated 7-10 Al Hydrox/Mg Hydrox/Simethicone 30 ml 08/29/24 16:04 Mag Hydrox/Al Hydrox/Simeth 30 Ml Udc PO Q6H PRN Indigestion Artificial Tears 1 drop 08/29/24 13:00 08/29/24 22:13 Artificial Tears Ophth Soln 15 Ml Bottle RIGHT EYE 1 drop QID RAMSES Administration Aspirin 81 mg 08/29/24 21:00 08/29/24 22:12 Aspirin 81 Mg Enteric Tablet PO 81 mg Q12HR RAMSES Administration Bisacodyl 10 mg 08/29/24 16:04 Bisacodyl 10 Mg Suppository RECTAL DAILY PRN Constipation Buspirone HCl 5 mg 08/29/24 09:11 Buspirone Hcl 5 Mg Tablet PO BID PRN anxiety Famotidine 20 mg 08/29/24 21:00 08/29/24 22:13 Famotidine 20 Mg Tablet PO 20 mg Q12HR RAMSES Administration Fentanyl Citrate 25 mcg 08/29/24 12:03 Fentanyl Citrate Inj (*Crx) 100 Mcg/2 Ml Vial IV PUSH Q2M PRN Pain Hydromorphone HCl 1 mg 08/29/24 16:10 Hydromorphone Hcl Inj (*Crx) 2 Mg/Ml Vial IV PUSH Q2H PRN Breakthrough Pain Rated 7-10 or NPO Hydromorphone HCl 0.5 mg 08/29/24 16:10 Hydromorphone Hcl Inj (*Crx) 2 Mg/Ml Vial IV PUSH Q2H PRN Breakthrough Pain Rated 4-6 or NPO Hydroxyzine Pamoate 50 mg 08/29/24 16:04 Hydroxyzine Pamoate 25 Mg Capsule PO Q4H PRN Itching Lactated Ringer's 1,000 mls @ 30 mls/hr 08/29/24 12:05 08/29/24 14:24 Lr - Lactated Ringers Iv IV CONT Infused .Q24H RAMSES Infusion Lactated Ringer's 1,000 mls @ 30 mls/hr 08/29/24 12:05 08/29/24 15:34 Lr - Lactated Ringers Iv IV CONT Infused .Q24H RAMSES Infusion Sodium Chloride 1,000 mls @ 125 mls/hr 08/29/24 16:04 08/29/24 16:44 Normal Saline Iv IV CONT 125 mls/hr .Q8H RAMSES Administration Cefazolin Sodium 2 gm in 50 mls @ 100 mls/hr 08/29/24 21:00 08/30/24 04:33 Ancef 2 Gm/D5w 50 Ml IVPB 08/30/24 13:29 100 mls/hr Q8H RAMSES Administration Ibuprofen 800 mg in 200 mls @ 400 mls/hr 08/29/24 16:04 Caldolor 800 Mg/200 Ml IVPB Q6H PRN Breakthrough Pain Rated 1-3 or NPO Lidocaine 1 patch 08/29/24 09:20 08/29/24 16:41 Lidocaine 5% Patch TRANSDERM Not Given DAILY RAMSES Loratadine 10 mg 08/29/24 21:00 08/29/24 22:12 Loratadine 10 Mg Tablet PO 10 mg QHS RAMSES Administration Magnesium Hydroxide 30 ml 08/29/24 16:04 Magnesium Hydroxide Susp 30 Ml Udc PO BID PRN Constipation Metoprolol Tartrate 12.5 mg 08/29/24 09:20 08/29/24 22:13 Metoprolol Tartrate 12.5 Mg Tablet PO 12.5 mg Q12HR [facility] Administration Multi-Ingred Cream/Lotion/Oil/Oint 1 applic 08/29/24 21:00 08/29/24 22:15 Mineral Oil/White Petrolatum Ointment RIGHT EYE 1 applic HS [facility] Administration Naloxone HCl 0.1 mg 08/29/24 16:04 Naloxone Hcl 0.4 Mg/Ml Vial IV PUSH Q2M PRN Opiate Reversal Ondansetron HCl 4 mg 08/29/24 09:12 08/29/24 14:55 Ondansetron Inj 4 Mg/2 Ml Vial IV PUSH 4 mg Q6H PRN Administration Nausea And Vomiting Ondansetron HCl 4 mg 08/29/24 12:03 Ondansetron Inj 4 Mg/2 Ml Vial IV PUSH ONCE PRN Nausea Ondansetron HCl 4 mg 08/29/24 16:04 Ondansetron Inj 4 Mg/2 Ml Vial IV PUSH Q4H PRN Nausea And Vomiting Oxycodone HCl 10 mg 08/28/24 20:36 08/29/24 02:03 Oxycodone Hcl (*Crx) 5 Mg Tab Ir PO 10 mg Q4H PRN Administration Pain Rated 7-10 Oxycodone HCl 5 mg 08/28/24 20:36 Oxycodone Hcl (*Crx) 5 Mg Tab Ir PO Q4H PRN Pain Rated 4-6 Polyethylene Glycol 17 gm 08/29/24 09:20 08/29/24 16:41 Polyethylene Glycol 3350 17 Gm Powd.Pack PO Not Given QAM [facility] Polyethylene Glycol 17 gm 08/30/24 09:00 Polyethylene Glycol 3350 17 Gm Powd.Pack PO QAM [facility] Prednisone 10 mg 08/29/24 09:20 08/29/24 16:42 Prednisone 10 Mg Tablet PO 10 mg DAILY@0800 [facility] Administration Senna/Docusate Sodium 1 tab 08/29/24 21:00 08/29/24 22:09 Senna/Docusate Sodium Tablet PO 1 tab HS RAMSES Administration Senna/Docusate Sodium 2 tab 08/29/24 17:00 08/29/24 16:45 Senna/Docusate Sodium Tablet PO Not Given BID [facility] Radiology Results: ITS Impressions Hip X-Ray 08/29/24 16:17 IMPRESSION: 1. Expected appearance of a newly placed bipolar type right hip hemiarthroplasty, negative for postoperative purposes. Labs Labs: Laboratory Results - last 24 hr 08/30/24 06:59 WBC 15.9 H RBC 3.63 L Hgb 10.1 L Hct 33.0 L MCV 90.9 MCH 27.8 MCHC 30.6 L RDW 15.1 H Plt Count 432 H MPV 9.6 Immature Gran % (Auto) 0.8 H Neut % (Auto) 78.3 H Lymph % (Auto) 12.6 L Page % (Auto) 8.1 Eos % (Auto) 0.0 Baso % (Auto) 0.2 Lymph # (Auto) 2.01 Page # (Auto) 1.3 H Eos # (Auto) 0.0 Baso # (Auto) 0.0 Abs Immat Gran (auto) 0.12 H Absolute Neuts (auto) 12.5 H Absolute Nucleated RBC 0.000 Nucleated RBC % 0.0 Sodium 135 L Potassium 3.8 Chloride 104 Carbon Dioxide 27 Anion Gap 4 BUN 10 Creatinine 0.69 L Estim Creat Clear Calc 40 Estimated GFR > 60 Glucose 116 H Calcium 8.3 L Magnesium 1.9 Total Bilirubin 0.3 AST 30 ALT 18 Alkaline Phosphatase 69 Total Protein 5.5 L Albumin 2.6 L Quality VTE Prophylaxis VTE prophylaxis: mechanical ordered -Patient's previous records reviewed on admission -ER notes reviewed in detail on admission -discussed all findings and current treatment plan with patient/Family/POA -Consultations reviewed for recommendations -Patient's disposition for safe discharge discussed with cyanide case hardener Dictation performed by [employer] direct speech recognition software, therefore [place] operator variants and typographical errors may occur. Hospitalist MIPS Advance Care Plan I have confirmed that the patient's Advanced Care Plan is present, code status is documented, or surrogate decision maker is listed in patient medical record.: Yes Medication Reconciliation I have utilized all available resources to obtain, update and review the patients current medications (includes all prescriptions, OTC, herbals, cannabis, and nutritional supplements).: Yes The patient is not eligible for med reconciliation; the patient is in a emergent medical situation where delaying treatment would jeopardize the patients health.: No
[2024-08-30] MEDS: SENNA/DOCUSATE SODIUM TABLET 2 TAB PO (09:12)
[2024-08-30] MEDS: ASPIRIN 81 MG ENTERIC TABLET PO ×2 (09:13→21:02)
[2024-08-30] MEDS: METOPROLOL TARTRATE 12.5 MG TABLET PO ×2 (09:13→21:03)
[2024-08-30] MEDS: predniSONE 10 MG TABLET PO (09:13)
[2024-08-30] MEDS: FAMOTIDINE 20 MG TABLET PO ×2 (09:13→21:02)
[2024-08-30] MEDS: LIDOCAINE 5% PATCH 1 PATCH TRANSDERM (09:16)
[2024-08-30 12:37] VITALS: BP 120/54; PULSE 80; RESP 16; TEMP 36.3; O2SAT 97
[2024-08-30 17:49] VITALS: BP 121/53; PULSE 68; RESP 14; TEMP 36.4; O2SAT 97
[2024-08-30 20:11] VITALS: BP 130/70; PULSE 79; RESP 16; TEMP 36.5; O2SAT 96
[2024-08-30] MEDS: MINERAL OIL/WHITE PETROLATUM OINTMENT 1 APPLIC RIGHT EYE (21:00)
[2024-08-30] MEDS: LORATADINE 10 MG TABLET PO (21:02)
[2024-08-30] MEDS: SENNA/DOCUSATE SODIUM TABLET 1 TAB PO (21:02)
[2024-08-30] MEDS: ARTIFICIAL TEARS OPHTH SOLN 15 ML BOTTLE 1 DROP RIGHT EYE (21:05)
[2024-08-31] MEDS: ACETAMINOPHEN 325 MG TABLET 650 MG PO ×3 (00:52→12:22)
[2024-08-31 05:11] VITALS: BP 137/48; PULSE 81; RESP 18; TEMP 36.3; O2SAT 99
[2024-08-31 06:46] LABS: Hematocrit 32.6 % (37.0-47.0); Hemoglobin 9.9 g/dL (12.0-15.0); Mean Corpuscular HGB Conc 30.4 g/dl (32-36); Mean Corpuscular Hemoglobin 27.7 pg (26-34); Mean Corpuscular Volume 91.3 fl (80-100); Mean Platelet Volume 9.8 fl (7.4-10.4); Platelet Count Result 406 k/mm3 (150-375); Red Blood Count 3.57 M/mm3 (4.2-5.4); Red Cell Distribution Width 15.1 % (11.5-14.5); White Blood Count 14.2 K/mm3 (4.5-10.0)
[2024-08-31 07:06] LABS: Alanine Aminotransferase 12 U/L (6-35); Albumin Level 2.7 g/dL (3.5-5.1); Alkaline Phosphatase 66 U/L (38-126); Anion Gap 4 mmol/L (4-12); Aspartate Amino Transferase 31 U/L (14-36); Bilirubin,Total 0.3 mg/dL (0.2-1.3); Blood Urea Nitrogen 13 mg/dL (7-17); Calcium 8.2 mg/dL (8.4-10.2); Carbon Dioxide 27 mmol/L (22-30); Chloride 103 mmol/L (98-107); Estimated CRCL calculation 42 ml/min; Estimated Glomerular Filt Rate > 60; Glucose 104 mg/dL (65-110); Potassium 3.6 mmol/L (3.4-5.0); Sodium 134 mmol/L (137-145); Total Protein 5.5 g/dL (6.3-8.2)
--- NOTE | 2024-08-31 07:40 | PCOTNOTE ---
Attempted occupational therapy treatment 08/31/24, patient declines stating she does not feel well. Patient states she is unable to describe how she is feeling. RN notified and aware.
[2024-08-31] MEDS: predniSONE 10 MG TABLET PO (09:03)
[2024-08-31] MEDS: FAMOTIDINE 20 MG TABLET PO (09:04)
[2024-08-31] MEDS: LIDOCAINE 5% PATCH 1 PATCH TRANSDERM (09:05)
[2024-08-31] MEDS: ASPIRIN 81 MG ENTERIC TABLET PO (09:05)
[2024-08-31 09:06] VITALS: PULSE 84
[2024-08-31] MEDS: METOPROLOL TARTRATE 12.5 MG TABLET PO (09:06)
--- NOTE | 2024-08-31 11:18 | P.DS_ITS ---
DS: Admitting Diagnosis Discharge Date 08/31/2024 Admitting Diagnosis Right hip femoral neck fracture DS: Discharge Diagnosis Discharge Diagnosis (1) Right femoral fracture: Code(s): S72.91XA - Unspecified fracture of right femur, initial encounter for closed fracture Status: Acute Assessment and Plan: patient with initial fall back on 08/13/2024 initial x-ray of bilateral hips and pelvis reported no acute fractures patient had continued rehabilitation and [place] [facility] but was regressing and reported worsening hip pain an MRI was completed that showed a right proximal femur neck fracture. 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 Q 5 for 10 days * prednisone taper completed * artificial eyes and lubricant * May tape eye close at night or when resting (3) Accidental fall: Qualifiers: Encounter type: initial encounter Qualified Code(s): W19.XXXA - Unspecified fall, initial encounter Code(s): W19.XXXA - Unspecified fall, initial encounter Status: Acute Assessment and Plan: patient reported fall x2 at home with acute pain to left hip does have history of severe osteoarthritis, acute femoral fracture * pain management scheduled oxycodone and [place] breakthrough pain medication * lidocaine patch to left hip * PT/OT Evaluation (4) Acute hip pain: Qualifiers: Laterality: right Qualified Code(s): M25.551 - Pain in right hip Code(s): M25.559 - Pain in unspecified hip Status: Acute Assessment and Plan: SEE ABOVE (5) Hypertension: Code(s): I10 - Essential (primary) hypertension Status: Acute Assessment and Plan: * continue patient's metoprolol 12.5 b.i.d. * monitor BP per unit protocol DS: Summary Hospital Course Reason for hospitalization: right hip femoral neck fracture Hospital Course: Admission: Jaqueline Verma is a 89 year old female who was admitted to [facility] for further rehabilitation following hospitalization. Patient has past medical history osteoarthritis, severe right osteoarthritis and hypertension. patient was evaluated on the medical unit initially it [facility] where she was found to have new right-sided facial droop at which time a code stroke was called and patient was taken down for a stat CT head which showed no acute intracranial process and age-related changes consistent with chronic small- vessel ischemic disease. CTA was negative for any occlusions, patient with continued to have right facial drop CVA vs corbin's palsey no previous history of either. 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 Patient continued therapy at [place] [facility] bed with slow progression and worsening right hip pain which eventually worsened her ambulation a repeat MRI was completed which at that time showed a proximal right femoral neck fracture. Patient was then transferred to [facility] for surgical intervention by orthopedics for repair. Hospital Course: Patient underwent a total right Hemiarthroplasty of the right hip. Patient tolerated procedure well with minimal blood loss. Patient did have bump in her WBC but trended down no evidence of infectious process likely reactive to surgery, labs were otherwise unremarkable and vitals remained stable. Patient was evaluated by PT/OT post-op was ambulated with walker weight bearing as tolerated need quite a bit assistance and recommended continued rehab. Patient was then discharged back to [facility] for continued rehab post-op was seen prior to discharge in no acute distress and no complaints was transported via EMS and will follow-up with Ortho outpatient in 2 weeks. Status at Discharge Functional status at discharge: uses cane/walker Overall status at discharge: patient is progressing back to baseline Time Spent with Patient Time attestation: Total time spent providing and/or coordinating discharge services: Exam Const: General: comfortable and no acute distress HENMT: Ears: TM's normal bilaterally Face/Nose/Sinus: Normal nares present Mouth: Yes moist mucous membranes Eyes: General: appearance normal, both eyes and all related structures Sclera: sclerae normal Pupils: Equal, round and reactive pupils present EOM: EOMs intact bilaterally Neck: Neck: supple and no JVD Resp: Effort & Inspection: normal respiratory effort Auscultation: clear to auscultation bilaterally Cardio: Rate: regular rate Rhythm: regular rhythm GI: Auscultation: normal bowel sounds Skin: General skin exam: normal color and no rashes or lesions noted Wounds: no wounds Neuro: General: gait normal Cranial nerves: Yes Equal, round and reactive pupils present Speech: normal speech Motor exam (neuro): 5/5 motor strength present throughout Other: Right sided facial paralysis Extrem: General: normal to inspection Other: Right hip pain Psych: Mental Status: mental status grossly normal Affect: normal affect DS: Data Data Completed and Pending Labs on day of discharge: Labs from last 24 hours 08/31/24 06:26 WBC 14.2 H RBC 3.57 L Hgb 9.9 L Hct 32.6 L MCV 91.3 MCH 27.7 MCHC 30.4 L RDW 15.1 H Plt Count 406 H MPV 9.8 Sodium 134 L Potassium 3.6 Chloride 103 Carbon Dioxide 27 Anion Gap 4 BUN 13 Creatinine 0.66 L Estim Creat Clear Calc 42 Estimated GFR > 60 Glucose 104 Calcium 8.2 L Magnesium 2.0 Total Bilirubin 0.3 AST 31 ALT 12 Alkaline Phosphatase 66 Total Protein 5.5 L Albumin 2.7 L Imaging Radiologist's impression: FINDINGS: BONES: Fracture of the right femoral neck. HIP JOINT SPACES: Left hip arthroplasty. Severe right hip osteoarthritic changes. SACROILIAC JOINT SPACES/LUMBAR SPINE: The sacroiliac joint spaces are normal. Mild degenerative changes of the visualized lower lumbar spine. PUBIC SYMPHYSIS: Pubic symphysitis. SOFT TISSUES: Normal. IMPRESSION: Fracture right femoral neck. Discharge Plan Discharge Attending physician on discharge: Luis E Caro Consulting providers: Enriqueta Little; Henrique Valles Discharging Clinician: Enriqueta Little Anticipated Discharge Date/Time: 08/31/24 11:04 Patient Disposition: Hospital Swing Bed Activity: may shower, as tolerated and follow weight bearing status Diet: regular Discharge Instructions: 1). Total Hip replacement * Weight bearing as tolerated * Follow-up with Dr. Valles in 2 weeks * Continue physical and occupational therapy at Swing bed * You will be prescribed aspirin 81mg twice a day to prevent blood clots * de-escalate pain medication as pain improves How can you care for yourself at home? ? Keep track of any new symptoms or changes in your symptoms. ? Rest until you feel better. ? Be safe with medicines. Take your medicines exactly as prescribed. Call your doctor if you think you are having a problem with your medicine. ? Do not drive after taking a prescription pain medicine. ? Ensure to follow-up with primary care physician as indicated and provide updated medication list provided to you at discharge. When should you call for help? Call 911 anytime you think you may need emergency care. For example, call if: ? You passed out (lost consciousness). Call your doctor now or seek immediate medical care if: ? You have new symptoms like fever, difficulty breathing, Chest pain, vomiting, or rash. ? You have new or different pain. ? You are confused and are having trouble thinking clearly. ? Your symptoms are getting worse. Watch closely for changes in your health, and be sure to contact your doctor if: ? You do not get better as expected. Patient Instructions: Aspirin (By mouth), Precautions after Total Joint Replacement Surgery (DC), Total Hip Replacement (DC) Patient Language: Gabonese Stand Alone Forms: General Discharge Information Follow-up/Referrals: John Lopez MD [Primary Care Provider] - 3 Weeks Henrique Valles MD [Physician] - 2 Weeks (Call to schedule a follow-up appointment) Discharge Medications: New aspirin 81 mg Tablet,Delayed Release (Dr/Ec) 81 mg PO Q12HR Qty: 1 0RF bisacodyl 10 mg Suppository 10 mg RECTAL DAILY PRN (Reason: Constipation) Qty: 12 0RF famotidine 20 mg Tablet 20 mg PO Q12HR Qty: 2 0RF Continued buspirone 5 mg tablet 5 mg PO BID PRN (Reason: anxiety) loratadine 10 mg Tablet 10 mg PO QHS Qty: 1 0RF polyethylene glycol 3350 [Miralax] 17 gram Powder In Packet 17 g PO QAM Qty: 14 0RF metoprolol tartrate 25 mg tablet 12.5 mg PO BID Qty: 30 0RF Patient Comments: patient takes 12.5 mg in the AM and 12.5 in the PM Ca-D3-mag [id number] 600 mg calcium- 20 mcg-50 mg tablet 1 tablet PO .am acetaminophen 500 mg capsule 1,000 mg PO BID PRN (Reason: pain) lidocaine [Lidoderm] 5 % Adhesive Patch,Medicated 1 patch transdermal DAILY Qty: 1 0RF Artificial Tears([id number]) 1-0.2-0.2 % Drops 1 drp RIGHT EYE QID Qty: 1 0RF Lubrifresh PM 83-15 % Ointment 1 applic RIGHT EYE HS Qty: 1 0RF Discontinued prednisone 10 mg Tablet 10 mg PO DAILY@0800 Qty: 3 0RF aspirin 81 mg tablet,delayed release (DR/EC) 81 mg PO HS No Action sennosides-docusate sodium [Senokot-S] 8.6-50 mg Tablet 1 tab-cap PO HS sennosides-docusate sodium [Senokot-S] 8.6-50 mg Tablet 2 tab-cap PO BID Date of admission: 08/28/24 16:04 Primary Care Provider: John Lopez Admitting Provider: Declan Taveras Attending physician on admission: Declan Taveras Condition: Stable Quality VTE Prophylaxis VTE prophylaxis: mechanical ordered -Patient's previous records reviewed on admission -ER notes reviewed in detail on admission -discussed all findings and current treatment plan with patient/Family/POA -Consultations reviewed for recommendations -Patient's disposition for safe discharge discussed with senior case manager Dictation performed by [employer] direct speech recognition software, therefore [employer] lead variants and typographical errors may occur. Hospitalist MIPS Heart Failure (Exclusion) Patient has history of Heart Transplant or Left Ventricular Assistive Device?: No IF YES, STOP HERE Heart Failure (Qualifier) Patient has current or prior documentation of LVEF less than or equal to 40%, or mod/servere depressed LVSF?: No IF NO, STOP HERE
== END 2024-08-31 15:10 | disposition swing bed (61) ==
PROVIDERS: Nurse Practitioner Gerontology; Orthopaedic Surgery; Admitting Provider Internal Medicine; PCP Internal Medicine; Visit Provider Nurse Practitioner Family
PROC: 0SRR01A Replacement of Right Hip Joint, Femoral Surface with Metal Synthetic Substitute, Uncemented, Open Approach (ICD-10-PCS; CPT 27125; principal; 2024-08-29 13:00)
DX: S72.001A Fracture of unspecified part of neck of right femur, initial encounter for closed fracture (principal); I10 Essential (primary) hypertension; G51.0 Bell's palsy; M19.90 Unspecified osteoarthritis, unspecified site; Z79.82 Long term (current) use of aspirin; Z91.81 History of falling
CPT/HCPCS: 36415; 73502; 80048; 80053; 83735; 85025; 85027; 97110; 97161; 97165; 97530; A9270; C1776; J0690; J1100; J2003; J2004; J2405; J2704; J3010; J7030; J7120; J7512

== ENCOUNTER 2024-08-31 15:57 | Inpatient (IN) | payer MEDICARE, SELFPAY ==
[2024-08-31 16:00] VITALS: BP 147/55; PULSE 75; RESP 16; TEMP 36.9; O2SAT 96
--- NOTE | 2024-08-31 16:00 | ADMGEN ---
This patient, Jaqueline Verma, was admitted to 2nd Floor Room 202-1. Patient/family oriented to hospital policies and general routines including ID bracelet, bed and alarms, visiting hours, pain management, procedures, bathroom and other care routines, personal items, smoking policy, room service/diet, and visiting hours. Information on how to activate the Rapid Response Team has been discussed. Patient/Family are encouraged to report perceived risks to care and to ask questions if they do not understand what they are told or what they should do.
[2024-08-31 16:05] VITALS: BMI 22.3
[2024-08-31 16:19] VITALS: PULSE 75; RESP 16; O2SAT 96
[2024-08-31] MEDS: ARTIFICIAL TEARS OPHTH SOLN 15 ML BOTTLE 1 DROP RIGHT EYE ×2 (17:09→21:08)
[2024-08-31] MEDS: oxyCODONE/ACETAMINOPHEN (*CRX) 5-325 MG TABLET 1 TABLET PO ×2 (17:09→23:54)
[2024-08-31 20:00] VITALS: PULSE 75; RESP 16; O2SAT 96
[2024-08-31 21:17] VITALS: PULSE 75
[2024-08-31] MEDS: FAMOTIDINE 20 MG TABLET PO (21:17)
[2024-08-31] MEDS: METOPROLOL TARTRATE 12.5 MG TABLET PO (21:17)
[2024-08-31] MEDS: LORATADINE 10 MG TABLET PO (21:17)
[2024-08-31] MEDS: oxyCODONE HCL (*CRX) 2.5 MG TAB IR PO (21:17)
[2024-08-31] MEDS: ASPIRIN 81 MG ENTERIC TABLET PO (21:18)
[2024-08-31] MEDS: MINERAL OIL/PETROLATUM OPHTH OINT 3.5 GM (EYE LUBRICANT) 1 APPLIC RIGHT EYE (21:19)
[2024-09-01] VITALS: BP 161/88; PULSE 75; RESP 16; TEMP 36.2; O2SAT 97
[2024-09-01 06:55] LABS: Hematocrit 32.7 % (35.0-42.0); Hemoglobin 10.1 g/dL (11.7-13.8); Mean Corpuscular HGB Conc 30.9 g/dL (32-36); Mean Corpuscular Hemoglobin 28.1 pg (27.0-31.0); Mean Corpuscular Volume 91.1 fL (78.0-102.0); Platelet Count Result 438 K/mm3 (150-420); Red Blood Count 3.59 M/mm3 (4.20-5.40); White Blood Count 13.1 K/mm3 (4.8-10.8)
[2024-09-01 07:17] LABS: Alanine Aminotransferase 11 U/L (6-35); Albumin Level 2.5 g/dL (3.5-5.1); Alkaline Phosphatase 74 U/L (38-126); Anion Gap 0 mmol/L (4-12); Aspartate Amino Transferase 23 U/L (14-36); Bilirubin,Total 0.4 mg/dL (0.2-1.3); Calcium 8.1 mg/dL (8.4-10.2); Carbon Dioxide 31 mmol/L (22-30); Chloride 103 mmol/L (98-107); Glucose 97 mg/dL (65-110); Potassium 3.4 mmol/L (3.4-5.0); Sodium 134 mmol/L (137-145)
[2024-09-01 07:18] LABS: Blood Urea Nitrogen 9 mg/dL (7-17); Estimated CRCL calculation 50 ml/min; Estimated Glomerular Filt Rate > 60; Osmolality Calculated 276 mOsm/kg (285-295); Total Protein 5.4 g/dL (6.3-8.2)
[2024-09-01 08:00] VITALS: BP 147/79; PULSE 89; RESP 16; TEMP 36.6; O2SAT 98
[2024-09-01] MEDS: LIDOCAINE 5% PATCH 1 PATCH TRANSDERM (09:29)
[2024-09-01 09:32] VITALS: PULSE 76
[2024-09-01] MEDS: METOPROLOL TARTRATE 12.5 MG TABLET PO ×2 (09:32→21:10)
[2024-09-01] MEDS: FAMOTIDINE 20 MG TABLET PO ×2 (09:32→21:10)
[2024-09-01] MEDS: oxyCODONE HCL (*CRX) 2.5 MG TAB IR PO ×2 (09:32→21:10)
[2024-09-01] MEDS: ASPIRIN 81 MG ENTERIC TABLET PO ×2 (09:32→21:10)
[2024-09-01] MEDS: ARTIFICIAL TEARS OPHTH SOLN 15 ML BOTTLE 1 DROP RIGHT EYE ×4 (09:32→21:09)
[2024-09-01] MEDS: SENNA/DOCUSATE SODIUM TABLET 2 TAB PO ×2 (09:37→16:33)
[2024-09-01] MEDS: oxyCODONE/ACETAMINOPHEN (*CRX) 5-325 MG TABLET 1 TABLET PO ×2 (13:08→18:07)
--- NOTE | 2024-09-01 13:20 | P.HP_ITS ---
H&P: HPI History of Present Illness Date/Time: 09/01/24 13:20 Chief Complaint: Fall/right hip pain/ Corbin's palsy/ rehab Narrative: Jaqeuline Verma is a 89 year old female who was admitted to [facility] f or further rehabilitation following hospitalization Postop total right hip. Patient has past medical history osteoarthritis, severe right osteoarthritis and hypertension. patient was evaluated on the medical unit initially it [facility] where she was found to have new right-sided facial droop at which time a code stroke was called and patient was taken down for a stat CT head which showed no acute intracranial process and age-related changes consistent with chronic small-vessel ischemic disease. CTA was negative for any occlusions, patient with continued to have right facial drop CVA vs corbin's palsey no previous history of either. 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 Patient continued therapy at [facility] with slow progression and worsening right hip pain which eventually worsened her ambulation a repeat MRI was completed which at that time showed a proximal right femoral neck fracture. Patient was then transferred to [facility] for surgical intervention by orthopedics for repair. patient tolerated surgery well was re-evaluated by PT / OT at [facility] at which time they recommended continued SNF/rehab patient was then transferred back to [facility] for continued rehabilitation postop. Review of Systems Review of Systems: All systems reviewed & are unremarkable except as noted in HPI and below PMFSH Past Medical History Medical History Hypertension Osteoarthritis Surgical History Surgical History History of hip replacement History of cholecystectomy Family History Family History Other No significant family history Social History Social History Smoking status: Never smoker Second hand tobacco smoke exposure: Yes Alcohol intake: never Substance use: never Substance use type: does not use Do You Feel Safe in your Home?: Yes Lack of Transportation: No Lack of Food: Never True Current Housing: I Have Housing Concerned About Future Housing: No Difficulty Paying Gas/Electric Bills: No Difficulty Paying for Meds: No Currently Unemployed: No Education: High School Diploma/GED Difficulty w/ Childcare or Family Care: No Living arrangements: with family Sexual Orientation (if Verbalized by the Patient): Straight or Heterosexual Spiritual care concerns: No Meds Home Medications and Allergies Home Medications ?Medication ?Instructions ?Recorded ?Confirmed ?Type buspirone 5 mg tablet 5 mg PO BID PRN anxiety 08/13/24 08/31/24 History acetaminophen 500 mg capsule 1,000 mg PO BID PRN pain 08/14/24 08/31/24 History calcium 600 mg-D3 20 mcg-magnesium 1 tablet PO .am 08/14/24 08/31/24 History 50 ak-Bv-rbsivf-vonnie-boron tablet lidocaine 5 % topical patch 1 patch transdermal DAILY #1 ea 08/17/24 08/31/24 Rx (Lidoderm) peg [id number] 1 1 drp RIGHT EYE QID #1 mL 08/17/24 08/31/24 Rx %-0.2 %-0.2 % eye drops (Artificial Tears ([id number])) white petrolatum-mineral oil 83 1 applic RIGHT EYE HS #1 g 08/17/24 08/31/24 Rx %-15 % eye ointment (Lubrifresh PM) loratadine 10 mg tablet 10 mg PO QHS #1 tablet 08/28/24 08/31/24 Rx metoprolol tartrate 25 mg tablet 12.5 mg (1/2 x 25 mg) PO BID #30 08/28/24 08/31/24 Rx tabs polyethylene glycol 3350 17 gram 17 g PO QAM #14 ea 08/28/24 08/31/24 Rx oral powder packet (Miralax) aspirin 81 mg tablet,delayed 81 mg PO Q12HR #1 tablet 08/31/24 08/31/24 Rx release bisacodyl 10 mg rectal suppository 10 mg RECTAL DAILY PRN 08/31/24 08/31/24 Rx Constipation #12 ea famotidine 20 mg tablet 20 mg PO Q12HR #2 tabs 08/31/24 08/31/24 Rx sennosides 8.6 mg-docusate sodium 1 tab-cap PO HS 08/31/24 08/31/24 History 50 mg tablet (Senokot-S) sennosides 8.6 mg-docusate sodium 2 tab-cap PO BID 08/31/24 08/31/24 History 50 mg tablet (Senokot-S) Allergies Allergy/AdvReac Type Severity Reaction Status Date / Time No Known Allergies Allergy Verified 08/29/24 12:05 Vital Signs Vital Signs - 24 hr 08/31/24 16:00 08/31/24 16:19 08/31/24 20:00 Temperature 98.5 F Pulse Rate 75 75 75 Respiratory Rate 16 16 16 Blood Pressure 147/55 H Pulse Oximetry 96 96 96 Oxygen Delivery Room Air Room Air Room Air 08/31/24 21:17 09/01/24 00:00 09/01/24 08:00 Temperature 97.1 F L 97.8 F Pulse Rate 75 75 89 Respiratory Rate 16 16 Blood Pressure 161/88 H 147/79 H Pulse Oximetry 97 98 Oxygen Delivery Room Air Room Air 09/01/24 09:32 Temperature Pulse Rate 76 Respiratory Rate Blood Pressure Pulse Oximetry Oxygen Delivery Exam Const: General: comfortable and no acute distress HENMT: Ears: TM's normal bilaterally Face/Nose/Sinus: Normal nares present Mouth: Yes moist mucous membranes Eyes: General: appearance normal, both eyes and all related structures Sclera: sclerae normal Pupils: Equal, round and reactive pupils present EOM: EOMs intact bilaterally Neck: Neck: supple and no JVD Resp: Effort & Inspection: normal respiratory effort Auscultation: clear to auscultation bilaterally Cardio: Rate: regular rate Rhythm: regular rhythm GI: GI Palp: Yes Soft to palpation Auscultation: normal bowel sounds Skin: General skin exam: normal color and no rashes or lesions noted Wounds: no wounds Neuro: General: gait normal Speech: normal speech Motor exam (neuro): 5/5 motor strength present throughout Other: Right sided facial paralysis Extrem: General: normal to inspection Other: Right hip pain Psych: Mental Status: mental status grossly normal Affect: normal affect H&P: Results Labs Labs: Short CBC 09/01/24 Range/Units 06:47 WBC 13.1 H (4.8-10.8) K/mm3 Hgb 10.1 L (11.7-13.8) g/dL Hct 32.7 L (35.0-42.0) % Plt Count 438 H (150-420) K/mm3 BMP 09/01/24 06:47 Sodium 134 L Potassium 3.4 Chloride 103 Carbon Dioxide 31 H BUN 9 Creatinine 0.54 L Glucose 97 Calcium 8.1 L Liver Function 09/01/24 Range/Units 06:47 Total Bilirubin 0.4 (0.2-1.3) mg/dL AST 23 (14-36) U/L ALT 11 (6-35) U/L Alkaline Phosphatase 74 (38-126) U/L Albumin 2.5 L (3.5-5.1) g/dL Imaging MRI - head: Radiologist's impression: EXAMINATION: MR brain/brain stem wo con DATE: INDICATION: Stroke with right facial droop TECHNIQUE: Magnetic resonance imaging (MRI) of the brain and brainstem was performed without intravenous contrast. Sequences included sagittal and axial T1-weighted SE, axial diffusion-weighted FS SE, axial 3D SWAN, axial T2-weighted FLAIR, and axial T2-weighted FSE. Apparent diffusion coefficient (ADC) maps were created. COMPARISON: None. FINDINGS: There are no areas of restricted diffusion to suggest acute infarction. No intracranial hemorrhage or abnormal intracranial mass lesion. There are scattered areas of nonspecific increased T2-weighted signal intensity in the cerebral white matter, predominantly involving the deep and periventricular white matter. There are no intraparenchymal signal abnormalities seen on the other pulse sequences. Symmetric prominence of the sulci consistent with mild age-appropriate diffuse cerebral volume loss. The ventricles are symmetric and normal in size. There are no abnormal extra-axial fluid collections. Flow voids are seen in the cerebral arteries on the T2-weighted sequences consistent with their expected patency. Changes of bilateral intraocular lens replacement. Visualized orbits and soft tissues are unremarkable. IMPRESSION: 1. No acute intracranial process. 2. Age-related changes including mild diffuse volume loss and moderate periventricular predominant nonspecific white matter T2 hyperintensity consistent with chronic small vessel ischemic disease. Assessment and Plan Assessment and plan (1) Right femoral fracture: Code(s): S72.91XA - Unspecified fracture of right femur, initial encounter for closed fracture Status: Acute Assessment and Plan: patient with initial fall back on 08/13/2024 initial x-ray of bilateral hips and pelvis reported no acute fractures patient had continued rehabilitation and [place] swing bed but was regressing and reported worsening hip pain an MRI was completed that showed a right proximal femur neck fracture. 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 Q 5 for 10 days completed therapy * prednisone taper completed therapy * artificial eyes and lubricant * May tape eye close at night or when resting (3) Accidental fall: Qualifiers: Encounter type: initial encounter Qualified Code(s): W19.XXXA - Unspecified fall, initial encounter Code(s): W19.XXXA - Unspecified fall, initial encounter Status: Acute Assessment and Plan: patient reported fall x2 at home with acute pain to left hip does have history of severe osteoarthritis, acute femoral fracture * pain management scheduled oxycodone and [place] breakthrough pain medication * lidocaine patch to left hip * PT/OT Evaluation (4) Acute hip pain: Qualifiers: Laterality: right Qualified Code(s): M25.551 - Pain in right hip Code(s): M25.559 - Pain in unspecified hip Status: Acute Assessment and Plan: SEE ABOVE (5) Hypertension: Code(s): I10 - Essential (primary) hypertension Status: Acute Assessment and Plan: * continue patient's metoprolol 12.5 b.i.d. * monitor BP per unit protocol Plan Code status: Full code per patient DVT prophylaxis: SCD's/ DVT prophylaxis post surgery per Ortho Stress ulcer prophylaxis: NA PT/OT notes: PT/OT evaluation Disposition: patient was admitted to [facility] for continued rehabilitation following postop right hip replacement. patient lives at home alone plan is to discharge back to home when medically stable and able to perform her own ADLs. Quality VTE Prophylaxis VTE prophylaxis: pharmacologic ordered -Patient's previous records reviewed on admission -ER notes reviewed in detail on admission -discussed all findings and current treatment plan with patient/Family/POA -Consultations reviewed for recommendations -Patient's disposition for safe discharge discussed with ed case manager Dictation performed by [employer] direct speech recognition software, therefore school nurse variants and typographical errors may occur. Hospitalist MARCELLE Advance Care Plan I have confirmed that the patient's Advanced Care Plan is present, code status is documented, or surrogate decision maker is listed in patient medical record.: Yes Medication Reconciliation I have utilized all available resources to obtain, update and review the patients current medications (includes all prescriptions, OTC, herbals, cannabis, and nutritional supplements).: Yes The patient is not eligible for med reconciliation; the patient is in a emergent medical situation where delaying treatment would jeopardize the patients health.: No
[2024-09-01 16:00] VITALS: BP 138/75; PULSE 92; RESP 18; TEMP 37.3; O2SAT 95
[2024-09-01] MEDS: traMADol HCL (*CRX) 50 MG TABLET PO (16:35)
[2024-09-01 20:00] VITALS: PULSE 87; RESP 18; O2SAT 95
[2024-09-01 21:10] VITALS: PULSE 87
[2024-09-01] MEDS: MINERAL OIL/PETROLATUM OPHTH OINT 3.5 GM (EYE LUBRICANT) 1 APPLIC RIGHT EYE (21:10)
[2024-09-01] MEDS: LORATADINE 10 MG TABLET PO (21:10)
[2024-09-02] VITALS: BP 133/55; PULSE 87; RESP 16; TEMP 36.3; O2SAT 97
[2024-09-02] MEDS: oxyCODONE/ACETAMINOPHEN (*CRX) 5-325 MG TABLET 1 TABLET PO ×2 (00:23→20:32)
[2024-09-02 07:45] VITALS: BP 144/68; PULSE 88; RESP 16; TEMP 36.7; O2SAT 96
[2024-09-02 08:30] VITALS: O2SAT 96
[2024-09-02 09:22] VITALS: PULSE 88
[2024-09-02] MEDS: FAMOTIDINE 20 MG TABLET PO ×2 (09:22→20:31)
[2024-09-02] MEDS: METOPROLOL TARTRATE 12.5 MG TABLET PO ×2 (09:22→20:31)
[2024-09-02] MEDS: oxyCODONE HCL (*CRX) 2.5 MG TAB IR PO ×2 (09:22→20:31)
[2024-09-02] MEDS: ARTIFICIAL TEARS OPHTH SOLN 15 ML BOTTLE 1 DROP RIGHT EYE ×3 (09:22→20:34)
[2024-09-02] MEDS: ASPIRIN 81 MG ENTERIC TABLET PO ×2 (09:23→20:31)
[2024-09-02 16:30] VITALS: BP 158/66; PULSE 95; RESP 16; TEMP 37.2; O2SAT 99
[2024-09-02 20:31] VITALS: PULSE 90
[2024-09-02] MEDS: LORATADINE 10 MG TABLET PO (20:31)
[2024-09-02] MEDS: MINERAL OIL/PETROLATUM OPHTH OINT 3.5 GM (EYE LUBRICANT) 1 APPLIC RIGHT EYE (20:33)
[2024-09-03] VITALS: BP 161/59; PULSE 90; RESP 16; TEMP 37.4; O2SAT 93
[2024-09-03 08:00] VITALS: BP 153/64; PULSE 87; RESP 14; TEMP 36.3; O2SAT 94
[2024-09-03] MEDS: ARTIFICIAL TEARS OPHTH SOLN 15 ML BOTTLE 1 DROP RIGHT EYE ×2 (09:36→20:54)
[2024-09-03 09:37] VITALS: PULSE 82
[2024-09-03] MEDS: oxyCODONE HCL (*CRX) 2.5 MG TAB IR PO ×2 (09:37→20:53)
[2024-09-03] MEDS: ASPIRIN 81 MG ENTERIC TABLET PO ×2 (09:37→20:53)
[2024-09-03] MEDS: FAMOTIDINE 20 MG TABLET PO ×2 (09:37→20:54)
[2024-09-03] MEDS: SENNA/DOCUSATE SODIUM TABLET 2 TAB PO ×2 (09:37→17:09)
[2024-09-03] MEDS: METOPROLOL TARTRATE 12.5 MG TABLET PO ×2 (09:37→20:53)
[2024-09-03 16:00] VITALS: BP 130/63; PULSE 78; RESP 18; TEMP 37; O2SAT 95
[2024-09-03 20:53] VITALS: PULSE 104
[2024-09-03] MEDS: traMADol HCL (*CRX) 50 MG TABLET PO (20:53)
[2024-09-03] MEDS: LORATADINE 10 MG TABLET PO (20:54)
[2024-09-03] MEDS: MINERAL OIL/PETROLATUM OPHTH OINT 3.5 GM (EYE LUBRICANT) 1 APPLIC RIGHT EYE (20:54)
[2024-09-04] VITALS: BP 168/87; PULSE 104; RESP 16; TEMP 37.3; O2SAT 93
[2024-09-04 08:00] VITALS: BP 146/76; PULSE 90; RESP 18; TEMP 36.7; O2SAT 95
[2024-09-04] MEDS: ARTIFICIAL TEARS OPHTH SOLN 15 ML BOTTLE 1 DROP RIGHT EYE ×4 (08:55→20:58)
[2024-09-04 08:56] VITALS: PULSE 90
[2024-09-04] MEDS: FAMOTIDINE 20 MG TABLET PO ×2 (08:56→20:59)
[2024-09-04] MEDS: METOPROLOL TARTRATE 12.5 MG TABLET PO ×2 (08:56→20:58)
[2024-09-04] MEDS: SENNA/DOCUSATE SODIUM TABLET 2 TAB PO ×2 (08:57→17:32)
[2024-09-04] MEDS: oxyCODONE HCL (*CRX) 2.5 MG TAB IR PO ×2 (08:57→20:58)
[2024-09-04] MEDS: ASPIRIN 81 MG ENTERIC TABLET PO ×2 (08:57→20:58)
[2024-09-04 16:00] VITALS: BP 147/67; PULSE 90; RESP 18; TEMP 36.5; O2SAT 95
[2024-09-04 20:58] VITALS: PULSE 88
[2024-09-04] MEDS: LORATADINE 10 MG TABLET PO (20:58)
[2024-09-05] VITALS: BP 141/59; PULSE 87; RESP 16; TEMP 36.8; O2SAT 97
[2024-09-05 07:50] VITALS: BP 126/77; PULSE 86; RESP 16; TEMP 36.2; O2SAT 96
[2024-09-05 08:30] VITALS: PULSE 84; RESP 16; O2SAT 96
[2024-09-05 08:51] VITALS: PULSE 84
[2024-09-05] MEDS: oxyCODONE HCL (*CRX) 2.5 MG TAB IR PO ×2 (08:51→20:41)
[2024-09-05] MEDS: traMADol HCL (*CRX) 50 MG TABLET PO ×2 (08:51→20:43)
[2024-09-05] MEDS: METOPROLOL TARTRATE 12.5 MG TABLET PO ×2 (08:51→20:41)
[2024-09-05] MEDS: FAMOTIDINE 20 MG TABLET PO ×2 (08:51→20:41)
[2024-09-05] MEDS: ARTIFICIAL TEARS OPHTH SOLN 15 ML BOTTLE 1 DROP RIGHT EYE ×4 (08:51→20:41)
[2024-09-05] MEDS: ASPIRIN 81 MG ENTERIC TABLET PO ×2 (08:51→20:41)
[2024-09-05 16:40] VITALS: BP 137/88; PULSE 88; RESP 16; TEMP 36.2; O2SAT 95
[2024-09-05 20:41] VITALS: PULSE 88
[2024-09-05] MEDS: LORATADINE 10 MG TABLET PO (20:41)
[2024-09-06] VITALS (7 sets, daily range): BP systolic 103–167; BP diastolic 61–67; PULSE 82–94; RESP 16–18; TEMP 35.7–37.1; O2SAT 95–98
[2024-09-06] MEDS: ARTIFICIAL TEARS OPHTH SOLN 15 ML BOTTLE 1 DROP RIGHT EYE ×4 (09:26→20:50)
[2024-09-06] MEDS: traMADol HCL (*CRX) 50 MG TABLET PO ×2 (09:27→20:51)
[2024-09-06] MEDS: METOPROLOL TARTRATE 12.5 MG TABLET PO ×2 (09:27→20:52)
[2024-09-06] MEDS: FAMOTIDINE 20 MG TABLET PO ×2 (09:27→20:51)
[2024-09-06] MEDS: oxyCODONE HCL (*CRX) 2.5 MG TAB IR PO ×2 (09:27→20:50)
[2024-09-06] MEDS: ASPIRIN 81 MG ENTERIC TABLET PO ×2 (09:27→20:52)
[2024-09-06] MEDS: MINERAL OIL/PETROLATUM OPHTH OINT 3.5 GM (EYE LUBRICANT) 1 APPLIC RIGHT EYE (20:50)
[2024-09-06] MEDS: LORATADINE 10 MG TABLET PO (20:51)
[2024-09-07 07:40] VITALS: BP 140/59; PULSE 76; RESP 16; TEMP 36.1; O2SAT 97
[2024-09-07 08:30] VITALS: PULSE 76; RESP 16; O2SAT 97
[2024-09-07] MEDS: ARTIFICIAL TEARS OPHTH SOLN 15 ML BOTTLE 1 DROP RIGHT EYE ×4 (09:10→20:55)
[2024-09-07] MEDS: oxyCODONE HCL (*CRX) 2.5 MG TAB IR PO ×2 (09:10→20:56)
[2024-09-07 09:11] VITALS: PULSE 76
[2024-09-07] MEDS: traMADol HCL (*CRX) 50 MG TABLET PO ×2 (09:11→20:56)
[2024-09-07] MEDS: FAMOTIDINE 20 MG TABLET PO ×2 (09:11→20:56)
[2024-09-07] MEDS: METOPROLOL TARTRATE 12.5 MG TABLET PO ×2 (09:11→20:56)
[2024-09-07] MEDS: ASPIRIN 81 MG ENTERIC TABLET PO ×2 (09:11→20:56)
[2024-09-07 16:40] VITALS: BP 128/61; PULSE 84; RESP 16; TEMP 35.8; O2SAT 96
[2024-09-07] MEDS: MINERAL OIL/PETROLATUM OPHTH OINT 3.5 GM (EYE LUBRICANT) 1 APPLIC RIGHT EYE (20:55)
[2024-09-07 20:56] VITALS: PULSE 84
[2024-09-07] MEDS: LORATADINE 10 MG TABLET PO (20:56)
[2024-09-08] VITALS: BP 147/65; PULSE 84; RESP 16; TEMP 36.6; O2SAT 94
[2024-09-08 08:00] VITALS: BP 125/62; PULSE 88; RESP 20; TEMP 37.3; O2SAT 95
[2024-09-08 08:05] VITALS: PULSE 88
[2024-09-08] MEDS: oxyCODONE HCL (*CRX) 2.5 MG TAB IR PO ×2 (08:05→21:45)
[2024-09-08] MEDS: SENNA/DOCUSATE SODIUM TABLET 2 TAB PO (08:05)
[2024-09-08] MEDS: ASPIRIN 81 MG ENTERIC TABLET PO ×2 (08:05→21:46)
[2024-09-08] MEDS: METOPROLOL TARTRATE 12.5 MG TABLET PO ×2 (08:05→21:45)
[2024-09-08] MEDS: oxyCODONE/ACETAMINOPHEN (*CRX) 5-325 MG TABLET 1 TABLET PO (08:05)
[2024-09-08] MEDS: FAMOTIDINE 20 MG TABLET PO ×2 (08:05→21:45)
[2024-09-08] MEDS: ARTIFICIAL TEARS OPHTH SOLN 15 ML BOTTLE 1 DROP RIGHT EYE ×4 (08:06→21:45)
--- NOTE | 2024-09-08 11:42 | P.PNIM_ITS ---
Progress Note: A&P Assessment and Plan (1) Right femoral fracture: Code(s): S72.91XA - Unspecified fracture of right femur, initial encounter for closed fracture Status: Acute Assessment and Plan: patient with initial fall back on 08/13/2024 initial x-ray of bilateral hips and pelvis reported no acute fractures patient had continued rehabilitation and [place] swing bed but was regressing and reported worsening hip pain an MRI was completed that showed a right proximal femur neck fracture. 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 Q 5 for 10 days completed therapy * prednisone taper completed therapy * artificial eyes and lubricant * May tape eye close at night or when resting 09/08: Symptoms completely resolved and patient wishes to stop nighttime eye ointment (3) Accidental fall: Qualifiers: Encounter type: initial encounter Qualified Code(s): W19.XXXA - Unspecified fall, initial encounter Code(s): W19.XXXA - Unspecified fall, initial encounter Status: Acute Assessment and Plan: patient reported fall x2 at home with acute pain to right hip does have history of severe osteoarthritis, acute femoral fracture * pain management scheduled oxycodone and [place] breakthrough pain medication * lidocaine patch to right hip * PT/OT Evaluation 09/08: Patient refusing lidocaine patch, order discontinued Hip surgical dressing clean, dry, intact Follow up with Orthopedics scheduled for September 16 at 1300 and her friend plans to drive her there (4) Hypertension: Code(s): I10 - Essential (primary) hypertension Status: Acute Assessment and Plan: * continue patient's metoprolol 12.5 b.i.d. * monitor BP per unit protocol 09/08: Blood pressures and HR stable, continue treatment with no changes at this time (5) Frequent stools: Code(s): K52.9 - Noninfective gastroenteritis and colitis, unspecified Status: Acute Assessment and Plan: 09/08: New concern mentioned today. Patient was on high dose docusate/senna 2 tabs twice a day scheduled, Miralax daily scheduled and bisacodyl PRN Stopped docusate/senna and changed Miralax to PRN, patient has been refusing Miralax anyway but still getting docusate/senna. Plan Code status: Full code per patient DVT prophylaxis: ASA 81 mg BID per ortho Stress ulcer prophylaxis: NA PT/OT notes: PT/OT treatment Disposition: patient was admitted to [facility] for continued rehabilitation following postop right hip replacement. patient lives at home alone plan is to discharge back to home when medically stable and able to perform her own ADLs. Time Spent With Patient Time with patient: 25 - 35 minutes Subjective Date/time seen: 09/08/24 11:42 Interval history: This is an 89 year old female patient who is undergoing skilled rehab after right hip replacement on 08/29/24 at [facility] after discovery of subcapital femoral fracture sustained from a fall at home on 08/13/24. Initial XR of pelvis and right hip had been read as negative. While patient was admitted for pain management after fall, she developed right sided facial droop and had concern for Stroke. She was transferred to [facility] for stroke workup then back here to Swing Bed for therapy for right hip pain after fall. She was not making progress and was having more pain so MRI of hip and low back was ordered because the pain was described as sciatica pain by nursing staff from the low back down the thigh to the knee. MRI obtained on 08/28 showed displaced subcapital fracture with significant perifracture edema. Patient was transferred back to [facility] to undergo hip surgery and back here for Swing Bed admit for therapy. Today patient complained of excessive bowel movement frequency. She had been refusing Miralax for a few days. She also had scheduled docusate/senna, 2 tabs BID, that was discontinued and Miralax changed to daily PRN. Patient also notes that the eye ointment at night (ordered due to Corbin's Palsy) is causing irritation and she would like it discontinued. Her facial paralysis has resolved and she is able to close eye normally. Patient discussed how she plans to still be here for rehab when her Orthopedic appointment on September 16 comes around and her friend will drive her there and back. Patient denies any chest pain, fever, chills or vomiting. She notes some dyspnea with exertion (past history of emphysema from second hand smoke) but denies chest tightness or wheezing. She denies swelling/edema. She notes intermittent nausea that she struggled to explain then did not further clarify except to say no nausea right now. She noted the frequent stools as bothersome. Review of Systems Review of Systems: All systems reviewed & are unremarkable except as noted in HPI and below Exam Const: General: comfortable and no acute distress HENMT: Face/Nose/Sinus: Normal nares present Mouth: Yes moist mucous membranes Eyes: General: appearance normal, both eyes and all related structures Sclera: sclerae normal Pupils: Equal, round and reactive pupils present EOM: EOMs intact bilaterally Neck: Neck: supple and no JVD Resp: Effort & Inspection: normal respiratory effort Auscultation: clear to auscultation bilaterally Cardio: Rate: regular rate Rhythm: regular rhythm GI: Auscultation: normal bowel sounds Skin: General skin exam: normal color and no rashes or lesions noted Wounds: wounds noted (right hip surgical dressing clean, dry, intact) Neuro: General: gait normal (she prefers to shuffle due to longstanding arthritis with pigeon toed feet ) Cranial nerves: Yes Equal, round and reactive pupils present Speech: normal speech Motor exam (neuro): 5/5 motor strength present throughout Other: facial paralysis has resolved Extrem: General: normal to inspection Other: Right hip pain, surgical dressing clean dry and intact Psych: Mental Status: mental status grossly normal Affect: normal affect Objective Data Vital Signs Vital Signs: Vital Signs - 24 hr 09/07/24 16:40 09/07/24 20:56 09/08/24 00:00 Temperature 35.8 C L 36.6 C Pulse Rate 84 84 84 Respiratory Rate 16 16 Blood Pressure 128/61 147/65 H Pulse Oximetry 96 94 Oxygen Delivery Room Air Room Air 09/08/24 08:00 09/08/24 08:05 Temperature 37.3 C Pulse Rate 88 88 Respiratory Rate 20 Blood Pressure 125/62 Pulse Oximetry 95 Oxygen Delivery Room Air Intake/Output Intake/Output: Intake & Output 09/05/24 09/06/24 09/07/24 09/08/24 23:59 23:59 23:59 23:59 Intake Total 1370 1150 1380 330 Balance 1370 1150 1380 330 Meds/Results Medications: Active Medications Generic Name Dose Route Start Last Admin Trade Name Freq PRN Reason Stop Dose Admin Acetaminophen 650 mg 08/31/24 16:19 Acetaminophen 325 Mg Tablet PO Q6H PRN Mild Pain (1-3) or Fever Artificial Tears 1 drop 08/31/24 17:00 09/08/24 08:06 Artificial Tears Ophth Soln 15 Ml Bottle RIGHT EYE 1 drop QID RAMSES Administration Aspirin 81 mg 08/31/24 21:00 09/08/24 08:05 Aspirin 81 Mg Enteric Tablet PO 81 mg Q12HR RAMSES Administration Bisacodyl 10 mg 08/31/24 16:19 Bisacodyl 10 Mg Suppository RECTAL DAILY PRN Constipation Buspirone HCl 5 mg 08/31/24 16:19 Buspirone Hcl 5 Mg Tablet PO BID PRN anxiety Famotidine 20 mg 08/31/24 21:00 09/08/24 08:05 Famotidine 20 Mg Tablet PO 20 mg Q12HR RAMSES Administration Lidocaine 1 patch 09/01/24 09:00 09/08/24 08:05 Lidocaine 5% Patch TRANSDERM Not Given DAILY RAMSES Loratadine 10 mg 08/31/24 21:00 09/07/24 20:56 Loratadine 10 Mg Tablet PO 10 mg QHS RAMSES Administration Metoprolol Tartrate 12.5 mg 08/31/24 21:00 09/08/24 08:05 Metoprolol Tartrate 12.5 Mg Tablet PO 12.5 mg Q12HR RAMSES Administration Mineral Oil/Petrolatum/Glycerin 1 applic 08/31/24 21:00 09/07/24 20:55 Mineral Oil/Petrolatum Ophth Oint 3.5 Gm (Eye Lubricant) RIGHT EYE 1 applic HS RAMSES Administration Ondansetron HCl 4 mg 08/31/24 16:19 Ondansetron Hcl Odt 4 Mg Tablet PO Q6H PRN Nausea And Vomiting Oxycodone HCl 2.5 mg 08/31/24 21:00 09/08/24 08:05 Oxycodone Hcl (*Crx) 2.5 Mg Tab Ir PO 2.5 mg Q12HR RAMSES Administration Oxycodone/Acetaminophen 1 tablet 08/31/24 16:23 09/08/24 08:05 Oxycodone/Acetaminophen (*Crx) 5-325 Mg Tablet PO 1 tablet Q4H PRN Administration Pain Rated 7-10 Polyethylene Glycol 17 gm 09/01/24 09:00 09/08/24 08:07 Polyethylene Glycol 3350 17 Gm Powd.Pack PO Not Given QAM RAMSES Senna/Docusate Sodium 2 tab 08/31/24 17:00 09/08/24 08:05 Senna/Docusate Sodium Tablet PO 2 tab BID RAMSES Administration Tramadol HCl 50 mg 08/31/24 16:22 09/07/24 20:56 Tramadol Hcl (*Crx) 50 Mg Tablet PO 50 mg Q6H PRN Administration Pain Rated 4-6 Pulse Oximetry SpO2 results: 94-97% on room air Attestation: I personally reviewed and interpreted this pulse oximetry as follows: Interpretation: No need for supplemental oxygenation at this time Quality VTE Prophylaxis VTE prophylaxis: pharmacologic ordered (81 mg ASA BID per Orthopedics) Hospitalist MIPS Advance Care Plan I have confirmed that the patient's Advanced Care Plan is present, code status is documented, or surrogate decision maker is listed in patient medical record.: Yes Medication Reconciliation I have utilized all available resources to obtain, update and review the patients current medications (includes all prescriptions, OTC, herbals, cannabis, and nutritional supplements).: Yes
[2024-09-08 16:00] VITALS: BP 147/63; PULSE 92; RESP 20; TEMP 36.6; O2SAT 94
[2024-09-08 21:45] VITALS: PULSE 78
[2024-09-08] MEDS: LORATADINE 10 MG TABLET PO (21:45)
[2024-09-09] VITALS: BP 137/57; PULSE 93; RESP 16; TEMP 36.4; O2SAT 94
[2024-09-09 08:00] VITALS: BP 181/57; PULSE 88; RESP 16; TEMP 36.3; O2SAT 93
[2024-09-09] MEDS: ASPIRIN 81 MG ENTERIC TABLET PO ×2 (09:34→20:10)
[2024-09-09 09:35] VITALS: PULSE 88
[2024-09-09] MEDS: oxyCODONE HCL (*CRX) 2.5 MG TAB IR PO ×2 (09:35→20:10)
[2024-09-09] MEDS: METOPROLOL TARTRATE 12.5 MG TABLET PO ×2 (09:35→20:10)
[2024-09-09] MEDS: FAMOTIDINE 20 MG TABLET PO ×2 (09:35→20:11)
[2024-09-09 16:00] VITALS: BP 136/59; PULSE 81; RESP 14; TEMP 36.4; O2SAT 94
--- NOTE | 2024-09-09 19:46 | PC.NURSE ---
Patient in bed. Amb to/from bathroom using gait belt and walker with stand by assist. Able to feed self. SR upx2 and call light and belongings are within reach.
[2024-09-09 20:10] VITALS: PULSE 80
[2024-09-09] MEDS: traMADol HCL (*CRX) 50 MG TABLET PO (20:10)
[2024-09-09] MEDS: ARTIFICIAL TEARS OPHTH SOLN 15 ML BOTTLE 1 DROP RIGHT EYE (20:11)
[2024-09-09] MEDS: LORATADINE 10 MG TABLET PO (20:11)
[2024-09-10] VITALS: BP 130/78; PULSE 95; RESP 18; TEMP 36.6; O2SAT 95
[2024-09-10 08:00] VITALS: BP 126/61; PULSE 94; RESP 15; TEMP 36.8; O2SAT 94
[2024-09-10 09:20] VITALS: PULSE 86
[2024-09-10] MEDS: FAMOTIDINE 20 MG TABLET PO ×2 (09:20→20:45)
[2024-09-10] MEDS: oxyCODONE HCL (*CRX) 2.5 MG TAB IR PO ×2 (09:20→20:45)
[2024-09-10] MEDS: METOPROLOL TARTRATE 12.5 MG TABLET PO ×2 (09:20→20:45)
[2024-09-10] MEDS: ASPIRIN 81 MG ENTERIC TABLET PO ×2 (09:20→20:45)
[2024-09-10 16:00] VITALS: BP 138/55; PULSE 93; RESP 16; TEMP 37.2; O2SAT 95
[2024-09-10 20:45] VITALS: PULSE 88
[2024-09-10] MEDS: LORATADINE 10 MG TABLET PO (20:45)
[2024-09-10] MEDS: traMADol HCL (*CRX) 50 MG TABLET PO (20:45)
[2024-09-11] VITALS: BP 153/58; PULSE 88; RESP 18; TEMP 37.1; O2SAT 94
[2024-09-11 08:00] VITALS: BP 136/56; PULSE 93; RESP 15; TEMP 36.3; O2SAT 95
[2024-09-11 09:08] VITALS: PULSE 93
[2024-09-11] MEDS: METOPROLOL TARTRATE 12.5 MG TABLET PO ×2 (09:08→20:30)
[2024-09-11] MEDS: ASPIRIN 81 MG ENTERIC TABLET PO ×2 (09:08→20:30)
[2024-09-11] MEDS: oxyCODONE HCL (*CRX) 2.5 MG TAB IR PO ×2 (09:09→20:30)
[2024-09-11] MEDS: FAMOTIDINE 20 MG TABLET PO ×2 (09:09→20:29)
[2024-09-11 16:00] VITALS: BP 137/61; PULSE 85; RESP 15; TEMP 36.3; O2SAT 95
[2024-09-11] MEDS: traMADol HCL (*CRX) 50 MG TABLET PO (20:29)
[2024-09-11 20:30] VITALS: PULSE 84
[2024-09-11] MEDS: LORATADINE 10 MG TABLET PO (20:30)
[2024-09-11] MEDS: ARTIFICIAL TEARS OPHTH SOLN 15 ML BOTTLE 1 DROP RIGHT EYE (20:31)
[2024-09-12] VITALS: BP 151/68; PULSE 84; RESP 16; TEMP 36.4; O2SAT 95
[2024-09-12 08:00] VITALS: BP 145/76; PULSE 94; RESP 16; TEMP 36.4; O2SAT 96
[2024-09-12 08:37] VITALS: PULSE 94
[2024-09-12] MEDS: oxyCODONE HCL (*CRX) 2.5 MG TAB IR PO ×2 (08:37→20:46)
[2024-09-12] MEDS: METOPROLOL TARTRATE 12.5 MG TABLET PO ×2 (08:37→20:46)
[2024-09-12] MEDS: FAMOTIDINE 20 MG TABLET PO ×2 (08:37→20:45)
[2024-09-12] MEDS: ASPIRIN 81 MG ENTERIC TABLET PO ×2 (08:37→20:46)
[2024-09-12 16:00] VITALS: BP 142/79; PULSE 85; RESP 16; TEMP 37; O2SAT 96
[2024-09-12 20:46] VITALS: PULSE 83
[2024-09-12] MEDS: LORATADINE 10 MG TABLET PO (20:46)
[2024-09-12] MEDS: MINERAL OIL/PETROLATUM OPHTH OINT 3.5 GM (EYE LUBRICANT) 1 APPLIC RIGHT EYE (20:50)
--- NOTE | 2024-09-12 22:10 | PC.NURSE ---
PATIENT AMBULATED TO THE BATHROOM AND BACK TO BED USING WALKER AND GAIT BELT. STEADY GAIT
[2024-09-13] VITALS: BP 148/67; PULSE 83; RESP 16; TEMP 36.8; O2SAT 96
[2024-09-13 08:00] VITALS: BP 138/61; PULSE 82; RESP 16; TEMP 36.9; O2SAT 96
[2024-09-13 08:57] VITALS: PULSE 76
[2024-09-13] MEDS: ASPIRIN 81 MG ENTERIC TABLET PO ×2 (08:57→21:07)
[2024-09-13] MEDS: FAMOTIDINE 20 MG TABLET PO ×2 (08:57→21:07)
[2024-09-13] MEDS: oxyCODONE HCL (*CRX) 2.5 MG TAB IR PO ×2 (08:57→21:07)
[2024-09-13] MEDS: METOPROLOL TARTRATE 12.5 MG TABLET PO ×2 (08:57→21:07)
[2024-09-13 16:00] VITALS: BP 157/73; PULSE 80; RESP 20; TEMP 37.1; O2SAT 95
[2024-09-13] MEDS: DICLOFENAC SODIUM 1% 100 GM GEL (*BKC) 1 APPLIC TOPICAL ×2 (17:54→21:07)
[2024-09-13 21:07] VITALS: PULSE 90
[2024-09-13] MEDS: LORATADINE 10 MG TABLET PO (21:07)
[2024-09-13] MEDS: traMADol HCL (*CRX) 50 MG TABLET PO (21:07)
[2024-09-13] MEDS: ARTIFICIAL TEARS OPHTH SOLN 15 ML BOTTLE 1 DROP RIGHT EYE (21:08)
[2024-09-14] VITALS: BP 146/73; PULSE 90; RESP 16; TEMP 36.5; O2SAT 96
[2024-09-14 08:00] VITALS: BP 123/63; PULSE 87; RESP 18; TEMP 36.4; O2SAT 98
[2024-09-14 09:10] VITALS: PULSE 88
[2024-09-14] MEDS: DICLOFENAC SODIUM 1% 100 GM GEL (*BKC) 1 APPLIC TOPICAL ×4 (09:10→21:10)
[2024-09-14] MEDS: oxyCODONE HCL (*CRX) 2.5 MG TAB IR PO ×2 (09:10→21:10)
[2024-09-14] MEDS: METOPROLOL TARTRATE 12.5 MG TABLET PO ×2 (09:10→21:10)
[2024-09-14] MEDS: FAMOTIDINE 20 MG TABLET PO ×2 (09:10→21:11)
[2024-09-14] MEDS: ASPIRIN 81 MG ENTERIC TABLET PO ×2 (09:10→21:10)
[2024-09-14] MEDS: traMADol HCL (*CRX) 50 MG TABLET PO ×2 (12:52→21:10)
[2024-09-14 16:00] VITALS: BP 147/78; PULSE 87; RESP 18; TEMP 36.6; O2SAT 95
[2024-09-14 20:00] VITALS: PULSE 94; RESP 16; O2SAT 97
[2024-09-14 21:10] VITALS: PULSE 80
[2024-09-14] MEDS: ARTIFICIAL TEARS OPHTH SOLN 15 ML BOTTLE 1 DROP RIGHT EYE (21:10)
[2024-09-14] MEDS: LORATADINE 10 MG TABLET PO (21:11)
[2024-09-15] VITALS: BP 156/74; PULSE 94; RESP 16; TEMP 36.3; O2SAT 97
[2024-09-15 08:00] VITALS: BP 116/54; PULSE 82; RESP 20; TEMP 36.4; O2SAT 97
[2024-09-15 09:01] VITALS: PULSE 80
[2024-09-15] MEDS: DICLOFENAC SODIUM 1% 100 GM GEL (*BKC) 1 APPLIC TOPICAL ×4 (09:01→21:03)
[2024-09-15] MEDS: METOPROLOL TARTRATE 12.5 MG TABLET PO ×2 (09:01→21:03)
[2024-09-15] MEDS: ASPIRIN 81 MG ENTERIC TABLET PO ×2 (09:01→21:03)
[2024-09-15] MEDS: FAMOTIDINE 20 MG TABLET PO ×2 (09:01→21:03)
[2024-09-15] MEDS: oxyCODONE HCL (*CRX) 2.5 MG TAB IR PO ×2 (09:01→21:03)
[2024-09-15 10:50] LABS: Hematocrit 36.9 % (35.0-42.0); Hemoglobin 11.1 g/dL (11.7-13.8); Immature Platelet Fraction Pct 0.8 % (1.0-7.0); Mean Corpuscular HGB Conc 30.1 g/dL (32-36); Mean Corpuscular Hemoglobin 27.8 pg (27.0-31.0); Mean Corpuscular Volume 92.3 fL (78.0-102.0); Platelet Count Result 669 K/mm3 (150-420); Red Blood Count 4.00 M/mm3 (4.20-5.40); White Blood Count 10.0 K/mm3 (4.8-10.8)
[2024-09-15 11:01] LABS: Alanine Aminotransferase 14 U/L (6-35); Albumin Level 3.1 g/dL (3.5-5.1); Alkaline Phosphatase 82 U/L (38-126); Anion Gap 2 mmol/L (4-12); Aspartate Amino Transferase 23 U/L (14-36); Bilirubin,Total 0.3 mg/dL (0.2-1.3); Blood Urea Nitrogen 10 mg/dL (7-17); Calcium 8.6 mg/dL (8.4-10.2); Carbon Dioxide 31 mmol/L (22-30); Chloride 102 mmol/L (98-107); Estimated CRCL calculation 41 ml/min; Estimated Glomerular Filt Rate > 60; Glucose 86 mg/dL (65-110); Magnesium 2.1 mg/dL (1.6-2.3); Osmolality Calculated 278 mOsm/kg (285-295); Potassium 4.2 mmol/L (3.4-5.0); Sodium 135 mmol/L (137-145); Total Protein 6.4 g/dL (6.3-8.2)
--- NOTE | 2024-09-15 11:01 | P.PNIM_ITS ---
Progress Note: A&P Assessment and Plan (1) Right femoral fracture: Code(s): S72.91XA - Unspecified fracture of right femur, initial encounter for closed fracture Status: Acute Assessment and Plan: patient with initial fall back on 08/13/2024 initial x-ray of bilateral hips and pelvis reported no acute fractures patient had continued rehabilitation and [place] swing bed but was regressing and reported worsening hip pain an MRI was completed that showed a right proximal femur neck fracture. * RT hip Fabrice 08/29/2024 * pain management reports pain has resolved with movement * DVT prophylaxis ASA BID * PT OT post surgery weight-bearing per ortho Next F/U appointment 09/16/24 * SCDs/ Pee chatman * incentive spirometer (2) Accidental fall: Qualifiers: Encounter type: initial encounter Qualified Code(s): W19.XXXA - Unspecified fall, initial encounter Code(s): W19.XXXA - Unspecified fall, initial encounter Status: Acute Assessment and Plan: patient reported fall x2 at home with acute pain to right hip does have history of severe osteoarthritis, acute femoral fracture * pain management scheduled oxycodone and [place] breakthrough pain medication * lidocaine patch to right hip * PT/OT Evaluation * BL knee pain added Voltaren cream for her arthritis (3) Hypertension: Code(s): I10 - Essential (primary) hypertension Status: Acute Assessment and Plan: * continue patient's metoprolol 12.5 b.i.d. 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 Q 5 for 10 days completed therapy * prednisone taper completed therapy * artificial eyes and lubricant * May tape eye close at night or when resting RESOLVED Plan Code status: Full code per patient DVT prophylaxis: ASA 81 mg BID per ortho Stress ulcer prophylaxis: NA PT/OT notes: PT/OT treatment Disposition: patient was admitted to [facility] for continued rehabilitation following postop right hip replacement. patient lives at home alone plan is to discharge back to home when medically stable and able to perfo rm her own ADLs. Time Spent With Patient Time with patient: 15 - 25 minutes Subjective Date/time seen: 09/15/24 11:01 Interval history: patient is an 81-year-old female admitted to [facility] for further rehab following total hip replacement. 09/15/2024: Patient up in chair reported BL knee pain improved with Voltaren cream. Patient slowly progressing with PT/OT. Patient with no new complaints, denied SOB, CP, N/V. Labs in desirable range and vitals stable. Review of Systems Review of Systems: All systems reviewed & are unremarkable except as noted in HPI and below Exam Const: General: comfortable and no acute distress HENMT: Mouth: Yes moist mucous membranes Eyes: General: appearance normal, both eyes and all related structures Neck: Neck: supple and no JVD Resp: Effort & Inspection: normal respiratory effort Auscultation: clear to auscultation bilaterally Cardio: Rate: regular rate Rhythm: regular rhythm GI: GI Palp: Yes Soft to palpation Auscultation: normal bowel sounds Skin: General skin exam: normal color, no rashes or lesions noted and wounds noted (right hip surgical dressing clean, dry, intact) Wounds: no wounds and wounds noted (right hip surgical dressing clean, dry, intact) Neuro: General: gait normal (she prefers to shuffle due to longstanding arthritis with pigeon toed feet ) Speech: normal speech Other: facial paralysis has resolved Extrem: General: normal to inspection Other: Right hip pain, surgical dressing clean dry and intact Psych: Mental Status: mental status grossly normal Affect: normal affect Objective Data Vital Signs Vital Signs: Vital Signs - 24 hr 09/14/24 16:00 09/14/24 20:00 09/14/24 21:10 Temperature 97.8 F Pulse Rate 87 94 80 Respiratory Rate 18 16 Blood Pressure 147/78 H Pulse Oximetry 95 97 Oxygen Delivery Room Air Room Air 09/15/24 00:00 09/15/24 08:00 09/15/24 09:01 Temperature 97.4 F L 97.6 F Pulse Rate 94 82 80 Respiratory Rate 16 20 Blood Pressure 156/74 H 116/54 L Pulse Oximetry 97 97 Oxygen Delivery Room Air Room Air Intake/Output Intake/Output: Intake & Output 09/12/24 09/13/24 09/14/24 09/15/24 23:59 23:59 23:59 23:59 Intake Total 870 1040 990 380 Balance 870 1040 990 380 Meds/Results Medications: Active Medications Generic Name Dose Route Start Last Admin Trade Name Freq PRN Reason Stop Dose Admin Acetaminophen 650 mg 08/31/24 16:19 Acetaminophen 325 Mg Tablet PO Q6H PRN Mild Pain (1-3) or Fever Artificial Tears 1 drop 09/10/24 10:41 09/14/24 21:10 Artificial Tears Ophth Soln 15 Ml Bottle RIGHT EYE 1 drop QID PRN Administration Dry Eye(s) Aspirin 81 mg 08/31/24 21:00 09/15/24 09:01 Aspirin 81 Mg Enteric Tablet PO 81 mg Q12HR RAMSES Administration Bisacodyl 10 mg 08/31/24 16:19 Bisacodyl 10 Mg Suppository RECTAL DAILY PRN Constipation Buspirone HCl 5 mg 08/31/24 16:19 Buspirone Hcl 5 Mg Tablet PO BID PRN anxiety Diclofenac Sodium 1 applic 09/13/24 17:00 09/15/24 09:01 Diclofenac Sodium 1% 100 Gm Gel (*Bkc) TOPICAL 1 applic QID RAMSES Administration Famotidine 20 mg 08/31/24 21:00 09/15/24 09:01 Famotidine 20 Mg Tablet PO 20 mg Q12HR RAMSES Administration Loratadine 10 mg 08/31/24 21:00 09/14/24 21:11 Loratadine 10 Mg Tablet PO 10 mg QHS RAMSES Administration Metoprolol Tartrate 12.5 mg 08/31/24 21:00 09/15/24 09:01 Metoprolol Tartrate 12.5 Mg Tablet PO 12.5 mg Q12HR RAMSES Administration Ondansetron HCl 4 mg 08/31/24 16:19 Ondansetron Hcl Odt 4 Mg Tablet PO Q6H PRN Nausea And Vomiting Oxycodone HCl 2.5 mg 08/31/24 21:00 09/15/24 09:01 Oxycodone Hcl (*Crx) 2.5 Mg Tab Ir PO 2.5 mg Q12HR RAMSES Administration Polyethylene Glycol 17 gm 09/08/24 12:52 Polyethylene Glycol 3350 17 Gm Powd.Pack PO QAM PRN Constipation Tramadol HCl 50 mg 08/31/24 16:22 09/14/24 21:10 Tramadol Hcl (*Crx) 50 Mg Tablet PO 50 mg Q6H PRN Administration Pain Rated 4-6 Labs Labs: Laboratory Results - last 24 hr 09/15/24 10:14 WBC 10.0 RBC 4.00 L Hgb 11.1 L Hct 36.9 MCV 92.3 MCH 27.8 MCHC 30.1 L RDW 15.0 H Plt Count 669 H MPV 8.9 L % Immature Plt Fraction 0.8 L Quality VTE Prophylaxis VTE prophylaxis: pharmacologic ordered (81 mg ASA BID per Orthopedics) -Patient's previous records reviewed on admission -ER notes reviewed in detail on admission -discussed all findings and current treatment plan with patient/Family/POA -Consultations reviewed for recommendations -Patient's disposition for safe discharge discussed with skilled nursing case manager Dictation performed by [employer] direct speech recognition software, therefore professional model variants and typographical errors may occur. Hospitalist MIPS Advance Care Plan I have confirmed that the patient's Advanced Care Plan is present, code status is documented, or surrogate decision maker is listed in patient medical record.: Yes Medication Reconciliation I have utilized all available resources to obtain, update and review the patients current medications (includes all prescriptions, OTC, herbals, cannabis, and nutritional supplements).: Yes The patient is not eligible for med reconciliation; the patient is in a emergent medical situation where delaying treatment would jeopardize the patients health .: No
[2024-09-15 16:00] VITALS: BP 157/64; PULSE 89; RESP 16; TEMP 36.5; O2SAT 95
[2024-09-15 20:00] VITALS: PULSE 83; RESP 16; O2SAT 95
[2024-09-15 21:03] VITALS: PULSE 83
[2024-09-15] MEDS: LORATADINE 10 MG TABLET PO (21:04)
[2024-09-15] MEDS: ARTIFICIAL TEARS OPHTH SOLN 15 ML BOTTLE 1 DROP RIGHT EYE (21:05)
[2024-09-16] VITALS (7 sets, daily range): BP systolic 132–158; BP diastolic 60–74; PULSE 69–90; RESP 16–18; TEMP 36–36.6; O2SAT 96–99
[2024-09-16] MEDS: METOPROLOL TARTRATE 12.5 MG TABLET PO ×2 (09:01→21:01)
[2024-09-16] MEDS: ASPIRIN 81 MG ENTERIC TABLET PO ×2 (09:01→21:04)
[2024-09-16] MEDS: FAMOTIDINE 20 MG TABLET PO ×2 (09:02→21:04)
[2024-09-16] MEDS: oxyCODONE HCL (*CRX) 2.5 MG TAB IR PO ×2 (09:02→21:04)
--- NOTE | 2024-09-16 12:07 | PC.NURSE ---
Taken via wheelchair to car for doctor appointment to [facility]
--- NOTE | 2024-09-16 15:00 | PC.NURSE ---
Returned from appointment, tolerated well, dressing gauze to right hip noted states we are to watch for seeping, healing well. Assisted to get dressed and in chair at this time.
[2024-09-16] MEDS: DICLOFENAC SODIUM 1% 100 GM GEL (*BKC) 1 APPLIC TOPICAL ×2 (17:47→21:05)
[2024-09-16] MEDS: LORATADINE 10 MG TABLET PO (21:04)
[2024-09-16] MEDS: ARTIFICIAL TEARS OPHTH SOLN 15 ML BOTTLE 1 DROP RIGHT EYE (21:05)
[2024-09-17 08:00] VITALS: BP 179/80; PULSE 96; RESP 18; TEMP 35.9; O2SAT 97
[2024-09-17 09:11] VITALS: PULSE 94
[2024-09-17] MEDS: oxyCODONE HCL (*CRX) 2.5 MG TAB IR PO ×2 (09:11→20:31)
[2024-09-17] MEDS: FAMOTIDINE 20 MG TABLET PO ×2 (09:11→20:34)
[2024-09-17] MEDS: ASPIRIN 81 MG ENTERIC TABLET PO ×2 (09:11→20:31)
[2024-09-17] MEDS: METOPROLOL TARTRATE 12.5 MG TABLET PO ×2 (09:11→20:31)
[2024-09-17 16:00] VITALS: BP 123/61; PULSE 83; RESP 18; TEMP 36; O2SAT 97
[2024-09-17 20:00] VITALS: BP 120/54; PULSE 81; RESP 18; TEMP 36.4; O2SAT 94
[2024-09-17 20:31] VITALS: PULSE 81
[2024-09-17] MEDS: LORATADINE 10 MG TABLET PO (20:34)
[2024-09-18] VITALS: BP 150/70; PULSE 88; RESP 16; TEMP 36.5; O2SAT 95
[2024-09-18 08:00] VITALS: BP 145/60; PULSE 91; RESP 17; TEMP 36.6; O2SAT 95
[2024-09-18 08:57] VITALS: PULSE 91
[2024-09-18] MEDS: oxyCODONE HCL (*CRX) 2.5 MG TAB IR PO ×2 (08:57→21:29)
[2024-09-18] MEDS: METOPROLOL TARTRATE 12.5 MG TABLET PO ×2 (08:57→21:29)
[2024-09-18] MEDS: ASPIRIN 81 MG ENTERIC TABLET PO ×2 (08:58→21:29)
[2024-09-18] MEDS: FAMOTIDINE 20 MG TABLET PO ×2 (08:58→21:29)
[2024-09-18 16:00] VITALS: BP 131/64; PULSE 99; RESP 16; TEMP 36.8; O2SAT 96
[2024-09-18] MEDS: DICLOFENAC SODIUM 1% 100 GM GEL (*BKC) 1 APPLIC TOPICAL ×2 (16:43→21:29)
[2024-09-18 20:00] VITALS: PULSE 84; RESP 16; O2SAT 96
[2024-09-18 21:29] VITALS: PULSE 84
[2024-09-18] MEDS: traMADol HCL (*CRX) 50 MG TABLET PO (21:29)
[2024-09-18] MEDS: LORATADINE 10 MG TABLET PO (21:29)
[2024-09-18] MEDS: ARTIFICIAL TEARS OPHTH SOLN 15 ML BOTTLE 1 DROP RIGHT EYE (21:30)
[2024-09-19] VITALS: BP 139/65; PULSE 84; RESP 16; TEMP 36.6; O2SAT 96
[2024-09-19 08:00] VITALS: BP 120/74; PULSE 92; RESP 20; TEMP 36.6; O2SAT 97
[2024-09-19 08:34] VITALS: PULSE 92
[2024-09-19] MEDS: METOPROLOL TARTRATE 12.5 MG TABLET PO ×2 (08:34→21:23)
[2024-09-19] MEDS: oxyCODONE HCL (*CRX) 2.5 MG TAB IR PO ×2 (08:35→21:24)
[2024-09-19] MEDS: ASPIRIN 81 MG ENTERIC TABLET PO ×2 (08:35→21:24)
[2024-09-19] MEDS: FAMOTIDINE 20 MG TABLET PO ×2 (08:35→21:24)
[2024-09-19 16:00] VITALS: BP 124/74; PULSE 78; RESP 20; TEMP 36.1; O2SAT 96
[2024-09-19 20:00] VITALS: PULSE 78; RESP 16; O2SAT 97
[2024-09-19 21:23] VITALS: PULSE 78
[2024-09-19] MEDS: LORATADINE 10 MG TABLET PO (21:24)
[2024-09-19] MEDS: ARTIFICIAL TEARS OPHTH SOLN 15 ML BOTTLE 1 DROP RIGHT EYE (21:24)
[2024-09-19] MEDS: DICLOFENAC SODIUM 1% 100 GM GEL (*BKC) 1 APPLIC TOPICAL (21:24)
[2024-09-20] VITALS: BP 143/76; PULSE 78; RESP 16; TEMP 36.4; O2SAT 97
[2024-09-20 08:00] VITALS: BP 124/66; PULSE 84; RESP 16; TEMP 36.3; O2SAT 95
[2024-09-20 09:59] VITALS: PULSE 84
[2024-09-20] MEDS: METOPROLOL TARTRATE 12.5 MG TABLET PO ×2 (09:59→21:26)
[2024-09-20] MEDS: oxyCODONE HCL (*CRX) 2.5 MG TAB IR PO ×2 (09:59→21:27)
[2024-09-20] MEDS: FAMOTIDINE 20 MG TABLET PO ×2 (09:59→21:27)
[2024-09-20] MEDS: ASPIRIN 81 MG ENTERIC TABLET PO ×2 (09:59→21:27)
[2024-09-20 16:00] VITALS: BP 152/82; PULSE 92; RESP 17; TEMP 36.8; O2SAT 96
[2024-09-20 20:00] VITALS: PULSE 92; RESP 17; O2SAT 96
[2024-09-20 21:26] VITALS: PULSE 84
[2024-09-20] MEDS: DICLOFENAC SODIUM 1% 100 GM GEL (*BKC) 1 APPLIC TOPICAL (21:26)
[2024-09-20] MEDS: ARTIFICIAL TEARS OPHTH SOLN 15 ML BOTTLE 1 DROP RIGHT EYE (21:27)
[2024-09-20] MEDS: LORATADINE 10 MG TABLET PO (21:27)
[2024-09-21] VITALS: BP 150/57; PULSE 84; RESP 16; TEMP 36.8; O2SAT 95
[2024-09-21] MEDS: ONDANSETRON HCL ODT 4 MG TABLET PO (00:52)
[2024-09-21] MEDS: traMADol HCL (*CRX) 50 MG TABLET PO (00:52)
--- NOTE | 2024-09-21 07:45 | P.DS_ITS ---
DS: Admitting Diagnosis Discharge Date 09/21/24 Admitting Diagnosis Right femoral fracture status post repair, Corbin's palsy, accidental fall, hypertension DS: Discharge Diagnosis Discharge Diagnosis (1) Right femoral fracture: Code(s): S72.91XA - Unspecified fracture of right femur, initial encounter for closed fracture Status: Acute Assessment and Plan: patient with initial fall back on 08/13/2024 initial x-ray of bilateral hips and pelvis reported no acute fractures patient had continued rehabilitation and [facility] but was regressing and reported worsening hip pain an MRI was completed that showed a right proximal femur neck fracture. * RT hip Fabrice 08/29/2024 * pain management reports pain has resolved with movement * DVT prophylaxis ASA BID * PT OT post surgery weight-bearing per ortho Next F/U appointment 09/16/24 * SCDs/ Pee hose * incentive spirometer 09/21/24: * Pt has progressed and improved and is stable for discharge at this time to Assisted Living facility. She will continue her ASA, Pee hose and pain management. (2) Accidental fall: Qualifiers: Encounter type: initial encounter Qualified Code(s): W19.XXXA - Uns pecified fall, initial encounter Code(s): W19.XXXA - Unspecified fall, initial encounter Status: Acute Assessment and Plan: patient reported fall x2 at home with acute pain to right hip does have history of severe osteoarthritis, acute femoral fracture * pain management scheduled oxycodone and [place] breakthrough pain medication * lidocaine patch to right hip * PT/OT Evaluation * BL knee pain added Voltaren cream for her arthritis 09/21/24: * Pt to continue pain management upon discharge. (3) Hypertension: Code(s): I10 - Essential (primary) hypertension Status: Acute Assessment and Plan: * continue patient's metoprolol 12.5 b.i.d. * monitor BP per unit protocol 09/21/24: * Stable at time/date of discharge. * Recommend to continue all home medications. (4) Facial paralysis/[place] Ward palsy: Code(s): G51.0 - Corbin's palsy Status: Resolved Assessment and Plan: Patient had new onset left facial drooping appeared consistent with Corbin's palsy however due to patient's age was concerned for possible stroke patient was transferred here to [facility], CTA, MRI of head negative for stroke * completed acyclovir 400 mg p.o. Q 5 for 10 days completed therapy * prednisone taper completed therapy * artificial eyes and lubricant * May tape eye close at night or when resting RESOLVED Plan Code status: Full code per patient DVT prophylaxis: ASA 81 mg BID per ortho Stress ulcer prophylaxis: NA PT/OT notes: PT/OT treatment Disposition: patient was admitted to [facility] for continued rehabilitation following postop right hip replacement. patient lives at home alone plan is to discharge back to home when medically stable and able to perform her own ADLs. DS: Summary Hospital Course Reason for hospitalization: Rehabilitation status post fall resulting in Right hip fracture and requiring surgical repair Hospital Course: this is a very pleasant 89-year-old female patient who was admitted to [facility] program for rehabilitation status post total right hip arthroplasty On August 29 2024following mechanical ground level fall on August 13, 2024. Patient has had a couple of events that started after patient was initially admitted here at [facility] for this rehab and while here developed concerns for possible stroke as she had a new right-sided facial droop. Imaging was negative for any acute intracranial process in CTA was negative for any occlusions. She was transferred to [facility] where CVA was ruled out and patient was initiated treatment for Corbin's palsy. She was placed on acyclovir and prednisone. Patient was evaluated by PT and OT and it was determined that she was stable to return to [facility] for continued rehab. Her postsurgical course has otherwise been uneventful and favorable overall. She has progress with PT and OT services and has been deemed stable for discharge to assisted living at this time. Patient will be discharged to [facility] living. Status at Discharge Cognitive/behavioral status at discharge: At baseline Functional status at discharge: uses cane/walker Overall status at discharge: patient is progressing back to baseline Time Spent with Patient Time attestation: Total time spent providing and/or coordinating discharge services: Time spent: Greater than 30 minutes Specific discharge activities: follow-up, medications, activity, return to hospital Exam Const: General: comfortable and no acute distress HENMT: Ears: TM's normal bilaterally Face/Nose/Sinus: Normal nares present Mouth: Yes moist mucous membranes Eyes: General: appearance normal, both eyes and all related structures Sclera: sclerae normal Pupils: Equal, round and reactive pupils present EOM: EOMs intact bilaterally Neck: Neck: supple and no JVD Resp: Effort & Inspection: normal respiratory effort Auscultation: clear to auscultation bilaterally Cardio: Rate: regular rate Rhythm: regular rhythm GI: Auscultation: normal bowel sounds Skin: General skin exam: normal color, no rashes or lesions noted and wounds noted (right hip surgical dressing clean, dry, intact) Wounds: no wounds and wounds noted (right hip surgical dressing clean, dry, intact) Neuro: General: gait normal (she prefers to shuffle due to longstanding arthritis with pigeon toed feet ) Cranial nerves: Yes Equal, round and reactive pupils present Speech: normal speech Motor exam (neuro): 5/5 motor strength present throughout Other: facial paralysis has resolved Extrem: General: normal to inspection Other: Right hip pain, surgical dressing clean dry and intact Psych: Mental Status: mental status grossly normal Affect: normal affect Discharge Plan Discharge Attending physician on discharge: Joe Chau Consulting providers: Enriqueta Little Discharging Clinician: Enriqueta Little Anticipated Discharge Date/Time: 09/21/24 16:07 Patient Disposition: Other Activity: may shower and as tolerated Diet: regular Discharge Instructions: [facility] [address] [place] [address] Discharge Summary Signed Patient: Jaqueline Verma MR#: [id number] : 1935 Acct:[id number] Age: 89 ADM Date: 08/28/24 Loc: [id number]: Declan Taveras M.D. cc: John Lopez MD; Declan Taveras MD~ DS: Admitting Diagnosis Discharge Date 08/31/2024 Admitting Diagnosis Right hip femoral neck fracture DS: Discharge Diagnosis Discharge Diagnosis (1) Right femoral fracture: Code(s): S72.91XA - Unspecified fracture of right femur, initial encounter for closed fracture Status: Acute Assessment and Plan: patient with initial fall back on 08/13/2024 initial x-ray of bilateral hips and pelvis reported no acute fractures patient had continued rehabilitation and [facility] but was regressing and reported worsening hip pain an MRI wa s completed that showed a right proximal femur neck fracture. * PT OT post surgery weight-bearing as tolerated/ returned to [facility] for Rehab * SCDs/ Pee jerode and ASA 81 BID * incentive spirometer while awake (2) Facial paralysis/[place] palsy: Code(s): G51.0 - Corbin's palsy Status: Acute Assessment and Plan: Patient had new onset left facial drooping appeared consistent with Corbin's pa lsy however due to patient's age was concerned for possible stroke patient was transferred here to [facility], CTA, MRI of head negative for stroke * completed acyclovir 400 mg p.o. Q 5 for 10 days * prednisone taper completed * artificial eyes and lubricant * May tape eye close at night or when resting (3) Accidental fall: Qualifiers: Encounter type: initial encounter Qualified Code(s): W19.XXXA - Unspecified fall, initial encounter Code(s): W19.XXXA - Unspecified fall, initial encounter Status: Acute Assessment and Plan: patient reported fall x2 at home with acute pain to left hip does have history of severe osteoarthritis, acute femoral fracture * pain management scheduled oxycodone and [place] breakthrough pain medication * lidocaine patch to left hip * PT/OT Evaluation (4) Acute hip pain: Qualifiers: Laterality: right Qualified Code(s): M25.551 - Pain in right hip Code(s): M25.559 - Pain in unspecified hip Status: Acute Assessment and Plan: SEE ABOVE (5) Hypertension: Code(s): I10 - Essential (primary) hypertension Status: Acute Assessment and Plan: * continue patient's metoprolol 12.5 b.i.d. * monitor BP per unit protocol DS: Summary Hospital Course Reason for hospitalization: right hip femoral neck fracture Hospital Course: Admission: Jaqueline Verma is a 89 year old female who was admitted to [facility] for further rehabilitation following hospitalization. Patient has past medical history osteoarthritis, severe right osteoarthritis and hypertension. patient was evaluated on the medical unit initially it [facility] where she was found to have new right-sided facial droop at which time a code stroke was called and patient was taken down for a stat CT head which showed no acute intracranial process and age-related changes consistent with chronic small- vessel ischemic disease. CTA was negative for any occlusions, patient with continued to have right facial drop CVA vs corbin's palsey no previous history of either. 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 Patient continued therapy at [facility] with slow progression and worsening right hip pain which eventually worsened her ambulation a repeat MRI was completed which at that time showed a proximal right femoral neck fracture. Patient was then transferred to [facility] for surgical intervention by orthopedics for repair. Hospital Course: Patient underwent a total right Hemiarthroplasty of the right hip. Patient tolerated procedure well with minimal blood loss. Patient did have bump in her WBC but trended down no evidence of infectious process likely reactive to surgery, labs were otherwise unremarkable and vitals remained stable. Patient was evaluated by PT/OT post-op was ambulated with walker weight bearing as adrian ated need quite a bit assistance and recommended continued rehab. Patient was then discharged back to [facility] for continued rehab post-op was seen prior to discharge in no acute distress and no complaints was transported via EMS and will follow-up with Ortho outpatient in 2 weeks. Status at Discharge Functional status at discharge: uses cane/walker Overall status at discharge: patient is progressing back to baseline Time Spent with Patient Time attestation: Total time spent providing and/or coordinating discharge services: Exam Const: General: comfortable and no acute distress HENMT: Ears: TM's normal bilaterally Face/Nose/Sinus: Normal nares present Mouth: Yes moist mucous membranes Eyes: General: appearance normal, both eyes and all related structures Sclera: sclerae normal Pupils: Equal, round and reactive pupils present EOM: EOMs intact bilaterally Neck: Neck: supple and no JVD Resp: Effort & Inspection: normal respiratory effort Auscultation: clear to auscultation bilaterally Cardio: Rate: regular rate Rhythm: regular rhythm GI: Auscultation: normal bowel sounds Skin: General skin exam: normal color and no rashes or lesions noted Wounds: no wounds Neuro: General: gait normal Cranial nerves: Yes Equal, round and reactive pupils present Speech: normal speech Motor exam (neuro): 5/5 motor strength present throughout Other: Right sided facial paralysis Extrem: General: normal to inspection Other: Right hip pain Psych: Mental Status: mental status grossly normal Affect: normal affect DS: Data Data Completed and Pending Labs on day of discharge: Labs from last 24 hours 08/31/24 06:26 WBC 14.2 H RBC 3.57 L Hgb 9.9 L Hct 32.6 L MCV 91.3 MCH 27.7 MCHC 30.4 L RDW 15.1 H Plt Count 406 H MPV 9.8 Sodium 134 L Potassium 3.6 Chloride 103 Carbon Dioxide 27 Anion Gap 4 BUN 13 Creatinine 0.66 L Estim Creat Clear Calc 42 Estimated GFR > 60 Glucose 104 Calcium 8.2 L Magnesium 2.0 Total Bilirubin 0.3 AST 31 ALT 12 Alkaline Phosphatase 66 Total Protein 5.5 L Albumin 2.7 L Imaging Radiologist's impression: FINDINGS: BONES: Fracture of the right femoral neck. HIP JOINT SPACES: Left hip arthroplasty. Severe right hip osteoarthritic changes. SACROILIAC JOINT SPACES/LUMBAR SPINE: The sacroiliac joint spaces are normal. Mild degenerative changes of the visualized lower lumbar spine. PUBIC SYMPHYSIS: Pubic symphysitis. SOFT TISSUES: Normal. IMPRESSION: Fracture right femoral neck. Discharge Plan Discharge Attending physician on discharge: Luis E Caro Consulting providers: Enriqueta Little; Henrique Valles Discharging Clinician: Sidney,Enriqueta M.J. Anticipated Discharge Date/Time: 08/31/24 11:04 Patient Disposition: [facility] Activity: may shower, as tolerated and follow weight bearing status Diet: regular Discharge Instructions: 1). Total Hip replacement * Weight bearing as tolerated * Follow-up with Dr. Valles as scheduled * Continue physical and occupational therapy at Swing bed * You will be prescribed aspirin 81mg twice a day to prevent blood clots * de-escalate pain medication as pain improves How can you care for yourself at home? ? Keep track of any new symptoms or changes in your symptoms. ? Rest until you feel better. ? Be safe with medicines. Take your medicines exactly as prescribed. Call your doctor if you think you are having a problem with your medicine. ? Do not drive after taking a prescription pain medicine. ? Ensure to follow-up with primary care physician as indicated and provide updated medication list provided to you at discharge. When should you call for help? Call 911 anytime you think you may need emergency care. For example, call if: ? You passed out (lost consciousness). Call your doctor now or seek immediate medical care if: ? You have new symptoms like fever, difficulty breathing, Chest pain, vomiting, or rash. ? You have new or different pain. ? You are confused and are having trouble thinking clearly. ? Your symptoms are getting worse. Watch closely for changes in your health, and be sure to contact your doctor if: ? You do not get better as expected. Patient Instructions: Antibiotic Form, Total Hip Replacement (DC) Patient Language: Maori Stand Alone Forms: General Discharge Information Follow-up/Referrals: John Lopez MD [Primary Care Provider] - Henrique Valles MD [Physician] - Call for Appointment Discharge Medications: New tramadol 50 mg Tablet 50 mg PO Q6H PRN (Reason: Pain Rated 4-6) Qty: 20 0RF Continued buspirone 5 mg tablet 5 mg PO BID PRN (Reason: anxiety) loratadine 10 mg Tablet 10 mg PO QHS Qty: 1 0RF polyethylene glycol 3350 [Miralax] 17 gram Powder In Packet 17 g PO QAM Qty: 14 0RF metoprolol tartrate 25 mg tablet 12.5 mg PO BID Qty: 30 0RF Patient Comments: patient takes 12.5 mg in the AM and 12.5 in the PM aspirin 81 mg Tablet,Delayed Release (Dr/Ec) 81 mg PO Q12HR Qty: 60 0RF famotidine 20 mg Tablet 20 mg PO Q12HR Qty: 60 0RF Ca-D3-mag qu-ugqy-odd-rachel-bor 600 mg calcium- 20 mcg-50 mg tablet 1 tablet PO .am acetaminophen 500 mg capsule 1,000 mg PO BID PRN (Reason: pain) Artificial Tears(ds-sahg-qfwp) 1-0.2-0.2 % Drops 1 drp RIGHT EYE QID Qty: 1 0RF bisacodyl 10 mg Suppository 10 mg RECTAL DAILY PRN (Reason: Constipation) Qty: 12 0RF Discontinued sennosides-docusate sodium [Senokot-S] 8.6-50 mg Tablet 1 tab-cap PO HS sennosides-docusate sodium [Senokot-S] 8.6-50 mg Tablet 2 tab-cap PO BID lidocaine [Lidoderm] 5 % Adhesive Patch,Medicated 1 patch transdermal DAILY Qty: 1 0RF Lubrifresh PM 83-15 % Ointment 1 applic RIGHT EYE HS Qty: 1 0RF Date of admission: 08/31/24 15:57 Primary Care Provider: John Lopez Admitting Provider: Luis E Caro Attending physician on admission: Luis E Caro Condition: Stable Quality VTE Prophylaxis VTE prophylaxis: pharmacologic ordered Hospitalist MIPS Heart Failure (Exclusion) Patient has history of Heart Transplant or Left Ventricular Assistive Device?: No IF YES, STOP HERE Heart Failure (Qualifier) Patient has current or prior documentation of LVEF less than or equal to 40%, or mod/servere depressed LVSF?: No IF NO, STOP HERE
[2024-09-21 08:00] VITALS: BP 169/90; PULSE 102; RESP 16; TEMP 36.3; O2SAT 93
[2024-09-21 08:06] VITALS: PULSE 102
[2024-09-21] MEDS: FAMOTIDINE 20 MG TABLET PO (08:06)
[2024-09-21] MEDS: oxyCODONE HCL (*CRX) 2.5 MG TAB IR PO (08:06)
[2024-09-21] MEDS: ASPIRIN 81 MG ENTERIC TABLET PO (08:06)
[2024-09-21] MEDS: METOPROLOL TARTRATE 12.5 MG TABLET PO (08:06)
--- NOTE | 2024-09-21 12:30 | PC.NURSE ---
Discharge instructions reviewed with patient and daughter, Darcy. All questions answered. Pt transported via wheelchair and assisted into private vehicle.
--- NOTE | 2024-09-22 16:58 | PC.NURSE ---
Unable to reach Jaqueline for Discharge call back. Jaqueline went to [place] for further rehab.
== END 2024-09-21 12:25 | DRG 561 ==
PROVIDERS: Nurse Practitioner Family; Admitting Provider Internal Medicine; PCP Internal Medicine; Visit Provider Nurse Practitioner Adult Health
DX: Z47.1 Aftercare following joint replacement surgery (principal); S72.011D Unspecified intracapsular fracture of right femur, subsequent encounter for closed fracture with routine healing; W19.XXXD Unspecified fall, subsequent encounter; K52.9 Noninfective gastroenteritis and colitis, unspecified; L24.89 Irritant contact dermatitis due to other agents; R53.1 Weakness; G51.0 Bell's palsy; I10 Essential (primary) hypertension; J43.9 Emphysema, unspecified; M19.90 Unspecified osteoarthritis, unspecified site; Z90.49 Acquired absence of other specified parts of digestive tract; Z79.82 Long term (current) use of aspirin
CPT/HCPCS: 36415; 80053; 82948; 83735; 85027; 85055; 97110; 97161; 97165; 97530; 97535; A9270

== ENCOUNTER 2024-10-23 13:44 | Outpatient (CLI) | payer MEDICARE, SELFPAY ==
--- NOTE | ~2024-10-23 | XR_ITS ---
EXAMINATION: XR chest 2V Exam Date/Time: 10/23/2024 14:15 CDT HISTORY: ISMAEL placement/ rule out TB Comparison: X-ray and CT chest 12/23/2013. RESULT: Lines, tubes, and devices: None. Lungs and pleura: Mild biapical pleural scarring. Emphysematous/senescent change. Cardiomediastinal silhouette: Stable. Other: No acute osseous or upper abdominal finding. Exaggerated thoracic kyphosis. Mild chronic appe aring multilevel wedge deformities in the midthoracic spine. Osteopenia IMPRESSION: No acute cardiopulmonary process. Reviewed, dictated and finalized at location K.
--- OUTSIDE RECORDS SUMMARY | 2024-10-23 14:03 | XMS_ITS | Clinical Summary ---
Author Organization [facility] Address [facility] [place] [address] Care Team Providers Care Histotechnologist Supervisor Name Role Phone John Lopez MD Primary Care Provider [phone] Genevieve Mccray MD Unavailable [phone] Allergies No known active allergies Medications Multiple [...] (primary) hypertension 07/12/2016 Idiopathic pericarditis, unspecified chronicity ([facility]/HCC) 07/12/2016 Resolved Problems Problem Noted Date Diagnosed Date Resolved Date Hip fracture, left ([facility]/HCC HHS/HCC) 05/29/2017 06/01/2017 Encounters Date Type Department Care Team Description 10/14/2024 Telephone [facility], [place] [address] [place] [address] Martine Espinal FNP Concerns from Last 3 Months Immunizations Immunization Administration Dates Next Due Fluzone High Dose - >Age 65 (Prefilled Syringe) 12/07/2016,12/07/2015,12/09/2014,2013 Influenza Adult (Generic) 12/15/2019,12/06/2017 Pneumococcal (Pneumovax 23) 01/12/2014 Family History Medical History Relation Comments ND Father Stroke Father Relation Status Comments Father (Age 1990) Mother (Age 2000) Social History Tobacco Use Types Packs/Day Years [...] 01/02/2024 2:17 PM CDT Plan of Treatment Health Maintenance Due Date Last Done Comments DTaP, Tdap and Td Vaccines ( 1 - Tdap) 05/27/1954 Zoster Vaccines (1 of 2) 1986 Annual Medicare Wellness Visit 2001 RSV Immunization or 60+ Years (1 - 1-dose 75+ series) 05/27/2011 COVID-19 Vaccine (3 - 2023-2 5 season) 2023 05/07/2020, 04/09/2020 Pneumococcal Vaccine: [...] this topic Medical Devices Implanted Type Area Log Rafter Device Identifier Shelf Expiration Date Model / Serial / Lot Stem Hip Clive Versys Advocate Cemented 12 X 125 Standard - [id number] Implanted:Qty: 1 on 05/30/2017 by Alen Falcon MD at [facility] Left: Hip [employer] 12/09/2025 [id number] / / [id number] Cement Restrictor Implanted:Qty: 1 on 05/30/2017 by Alen Falcon MD at [facility] Left: Hip 09/08/2021 / / [id number] Centralizer Clive Versys Distal 12mm - [id number] Implanted:Qty: 1 on 05/30/2017 by Alen Falcon MD at [facility] Left: Hip [employer] 03/11/2027 [id number] / / [id number] Component Unipolar Clive 45mm - [id number] Implanted:Qty: 1 on 05/30/2017 by Alen Falcon MD at [facility] Left: Hip [employer] 04/11/2026 [id number] / / [id number] Component Adapter Neck Length Clive - [id number] Implanted:Qty: 1 on 05/30/2017 by Alen Falocn MD at [facility] Left: Hip [employer] 07/09/2025 [id number] / / [id number] Insurance [employer] [place] [address] [place] [address] MEDICARE Advance Directives * Full Code (Latest Code Status on File) Date Activated Date Inactivated Comments 05/30/2017 9:01 PM 06/01/2017 3:45 PM Care Teams Histotechnologist Supervisor Relationship Specialty Start Date End Date John Lopez MD [address] [place] [id number] PCP - General INTERNAL MEDICINE 06/01/16 Genevieve Mccray MD [address] [place] [phone] Edilia Practice Manager CARDIOVASCULAR DISEASE 07/11/16
--- OUTSIDE RECORDS SUMMARY | 2024-10-23 14:03 | XMS_ITS | Encounter Summary ---
Author Organization [facility] Address [address] [place] [address] Care Team Providers Care Pocket Operator Name Role Phone John Lopez MD Primary Care Provider [phone] Genevieve Mccray MD Unavailable [phone] Encounter Details Date Type Department Care Team (Latest Contact Info) Description 01/15/2018 Abstract [facility] , Ilir Maldonado MD Social [...] as of this encounter Plan of Treatment Not on file documented as of this encounter Visit Diagnoses Not on filedocumented in this encounter Care Teams Pocket Operator Relationship Specialty Start Date End Date John Lopez MD [address] [place] [address] PCP - General INTERNAL MEDICINE 06/01/16 Genevieve Mccray MD [address] [place] [address] Edilia Teletype Or Varitype Keyboard Operator CARDIOVASCULAR DISEASE 07/11/16 documented as of this encounter
--- OUTSIDE RECORDS SUMMARY | 2024-10-23 14:03 | XMS_ITS | Encounter Summary ---
Author Organization [facility] Address [address] [place] [address] Care Team Providers Care Assault Amphibious Vehicle Crewman Name Role Phone John Lopez MD Primary Care Provider [phone] Genevieve Mccray MD Unavailable [phone] Encounter Details Date Type Department Care Team (Late st Contact Info) Description 07/26/2015 Abstract [facility] [address] [place] [address] Genevieve Mccray MD [address] [place] [id number] Social History Tobacco Use Types Packs/Day [...] on filedocumented in this encounter Care Teams Assault Amphibious Vehicle Crewman Relationship Specialty Start Date End Date John Lopez MD [address] [place] [address] PCP - General INTERNAL MEDICINE 06/01/16 Genevieve Mccray MD [address] [place] [address] Edilia Entomology Teacher CARDIOVASCULAR DISEASE 07/11/16 documented as of this encounter
--- OUTSIDE RECORDS SUMMARY | 2024-10-23 14:03 | XMS_ITS | Patient Health Record ---
Author Organization [facility] Address [address] [place] [address] Care Team Providers Care Welding Machine Operator Submerged Arc Name Role Phone TARIQ MEEKS Primary Care Provider [phone] ASTON HYATT Unavailable [phone] Reason For Referral No Information Encounters Encounter Location Date Provider Diagnosis Physician [facility] [address] [place] [address] 10/09/2024 TARIQ MEEKS Plan Of Treatment No Information Insurance Providers Payer Name Payer Address Payer Phone Subscriber Number Group Number Insured Name Patient Relationship to Insured Coverage Start Date Coverage End Date [place]IC[place] [address] [place] [phone] [id number] Jaqueline Verma Self - patient is the insured [facility] CLAIM[facility] [address] [place] [id number] Jaqueline Verma Self - patient is the insured
[2024-10-23 14:25] LABS: Hematocrit 40.0 % (35.0-42.0); Hemoglobin 12.2 g/dL (11.7-13.8); Immature Platelet Fraction Pct 0.9 % (1.0-7.0); Immature Reticulocyte Fraction 7.4 % (2.0-16.52); Mean Corpuscular HGB Conc 30.5 g/dL (32-36); Mean Corpuscular Hemoglobin 27.1 pg (27.0-31.0); Mean Corpuscular Volume 88.9 fL (78.0-102.0); Platelet Count Result 579 K/mm3 (150-420); Red Blood Count 4.50 M/mm3 (4.20-5.40); Reticulocyte Hemoglobin Conten 29.6 pg (28.0-35.0); Reticulocytes Absolute 0.04 M/mm3 (0.02-0.10); White Blood Count 8.8 K/mm3 (4.8-10.8)
[2024-10-23 15:14] LABS: Alanine Aminotransferase 15 U/L (6-35); Albumin Level 3.8 g/dL (3.5-5.1); Alkaline Phosphatase 68 U/L (38-126); Anion Gap 7 mmol/L (4-12); Aspartate Amino Transferase 27 U/L (14-36); Bilirubin,Total 0.5 mg/dL (0.2-1.3); Blood Urea Nitrogen 10 mg/dL (7-17); Calcium 9.6 mg/dL (8.4-10.2); Carbon Dioxide 28 mmol/L (22-30); Chloride 104 mmol/L (98-107); Estimated Glomerular Filt Rate > 60; Glucose 166 mg/dL (65-110); Iron 38 ug/dL (37-170); Osmolality Calculated 291 mOsm/kg (285-295); Potassium 4.3 mmol/L (3.4-5.0); Sodium 139 mmol/L (137-145); Total Protein 6.9 g/dL (6.3-8.2)
[2024-10-23 15:23] LABS: Percent Iron Saturation 12 % (20-50)
[2024-10-23 15:49] LABS: Ferritin 51.70 ng/mL (11.1-264)
== END 2024-10-23 13:45 | disposition home or self-care (01) ==
PROVIDERS: PCP Nurse Practitioner Family; Visit Provider Nurse Practitioner Family
DX: Z02.2 Encounter for examination for admission to residential institution (principal); Z11.1 Encounter for screening for respiratory tuberculosis; D50.9 Iron deficiency anemia, unspecified
CPT/HCPCS: 36415; 71046; 80053; 82728; 83540; 83550; 85027; 85046; 85055